=== PATIENT | male | born 1935 | race Caucasian/White ===

== ENCOUNTER → 2016-08-07 08:26 | Outpatient (CLI) | payer MEDICARE ==
[2015-05-27 13:00] VITALS: BMI 33.5
[~2016-08-07 08:26] MED LIST: ATROVENT 0.02%2.5 ML UPD; BAYER CHEWABLE81 MG PO; BENICAR HCT 40-1 TA1 PO; BUMEX 1 MG TAB1 MG PO; CARDURA4 MG PO; CATAPRES0.1 MG PO; COLACE100 MG PO; CORDARONE200 MG PO; DOXYCYCLINE HY100 M2 PO; FLORAJEN3 CAPS460 MG PO; GLUCOPHAGE500 MG PO; GLUCOTROL 5 MG T5 MG PO; HUMALOG 30100 UNITS/ SC; HYDRALAZINE HCL50 MG PO; HYDROCODON-ACE1 EAC7 PO; ISOSORBIDE MONO30 M1 PO; LASIX20 MG PO; LIPITOR20 MG PO; LISINOPRIL10 MG PO; NORVASC10 MG PO; NORVASC5 MG PO; PACERONE200 MG PO; PARAFON FORTE500 MG PO; PLAVIX75 MG PO; POTASSIUM20 MEQ/11 PO; RESTORIL15 MG PO; SYNTHROID75 MCG PO; SYNTHROID88 MCG PO; TRANDATE200 MG PO; ULTRAM50 MG PO; VITAMIN D250000 UNIT PO; ZANTAC300 MG PO; ZESTRIL40 MG PO; ZOCOR20 MG PO; ZOCOR40 MG PO
--- NOTE | 2016-08-21 08:46 | EC ---
PATIENT:LEXI ROB DATE OF SERVICE: 08/07/16 SEX: M MEDICAL RECORD: [id number] DATE OF : 37 LOCATION:[facility] AGE OF PATIENT: 81 ADMISSION DATE: 08/07/16 REFERRING PHYSICIAN: INTERPRETING PHYSICIAN: KENNY BENTLEY MD ECHOCARDIOGRAM REPORT ECHO CHARGES 4 ECHO COMPLETE CLINICAL DIAGNOSIS: AI/MURMUR/DAY ECHOCARDIOGRAPHIC MEASUREMENTS (adult normal given) AC root (d.<3.7cm) 2.8 LV Septum d (<1.2 cm> 1.5 Valve Excursion 1.3 LV Septum (systole) 2.2 Left Atria (s.<4.0cm> 5.4 LVPW d(<1.2cm) 1.3 RV (d.<2.3cm) 2.7 LVPW (sytole) 2.1 LV diastole(<5.6CM) 6.6 MV E-F(>70mm/sec) LV systole 3.5 LVOT Diameter 1.8 MV exc.(>10mm) Est.ejection fraction (50-75%) Pericardial Effusion N DOPPLER: LVIT A 110 E 91.0 LA RVSP 39.3 LVOT 107 AOP1/2T Asc. Ao 266 RVOT 90.0 RA PA 110 AV Gradient Peak 28.2 AV Mean 16.4 AV Area 0.9 MV Gradient Peak 5.6 MV Mean 1.7 MV Area COMMENTS: Health Promotion Educator: Shanna SILVAOE Multi Mission Helicopter Aircrewman:1 Dr. Bentley TAPE# PACS DATE OF SERVICE: 08/07/2016 Echocardiogram FINDINGS: 1. Left ventricle chamber size is mildly dilated. Left ventricular systolic function is normal. Overall ejection fraction estimated at 55%. 2. Left atrium is dilated at 5.4 cm. Right atrium and right ventricular chamber sizes are as well dilated. 3. Valvular structures: Aortic valve demonstrates [id number] calcific ECHOCARDIOGRAM REPORT [id number] ELXI ROB aortic stenosis. Valve area calculates to 0.9 cm-squared, has a gradient of 28 mm across the valve. The remaining valvular structures have normal structure and motion. 4. Doppler interrogation elsewise only reveals trace mitral regurgitation, mild tricuspid regurgitation. No other valvular insufficiency or stenosis and pulmonary systolic pressure is normal estimated at 39 mmHg. 5. No evidence of pericardial effusion or left ventricular thrombus. TRANSINT:[id number] Voice Confirmation ID: [id number] DOCUMENT ID: [id number] KENNY BENTLEY MD at 0846 CC: [id number] DICTATION DATE: 08/07/16 1041 INJECTION MACHINE OPERATOR: 08/07/16 1857 DEP CLI 08/07/16 [place] [id number] [place] [id number]
== END | disposition home or self-care (01) ==
LOC: D.ECHO 08:26
DX: I35.1 Nonrheumatic aortic (valve) insufficiency (principal); R06.00 Dyspnea, unspecified; R01.1 Cardiac murmur, unspecified

== ENCOUNTER → 2016-09-01 11:56 | Outpatient (CLI) | payer MEDICARE ==
[2015-05-27 13:00] VITALS: BMI 33.5
== END | disposition home or self-care (01) ==
LOC: D.RAD 11:56
DX: R07.81 Pleurodynia (principal); M54.6 Pain in thoracic spine

== ENCOUNTER 2016-09-04 22:37 | Inpatient (IN) | payer MEDICARE ==
[~2016-09-04] VITALS: Ht 170.2 cm; Wt 83.6 kg
[~2016-09-04 22:37] MED LIST changes: -ATROVENT 0.02%2.5 ML UPD; -CATAPRES0.1 MG PO; -CORDARONE200 MG PO; -DOXYCYCLINE HY100 M2 PO; -FLORAJEN3 CAPS460 MG PO; -GLUCOPHAGE500 MG PO; -HUMALOG 30100 UNITS/ SC; -HYDRALAZINE HCL50 MG PO; -HYDROCODON-ACE1 EAC7 PO; -ISOSORBIDE MONO30 M1 PO; -LIPITOR20 MG PO; -LISINOPRIL10 MG PO; -NORVASC10 MG PO; -PARAFON FORTE500 MG PO; -RESTORIL15 MG PO; -SYNTHROID88 MCG PO; -ULTRAM50 MG PO; -VITAMIN D250000 UNIT PO; -ZOCOR20 MG PO
[2016-09-05 02:25] LABS: APPEARANCE CLEAR (CLEAR); COLOR YELLOW (YELLOW); LEUKOCYTE ESTERASE NEGATIVE (NEGATIVE); NITRITE NEGATIVE (NEGATIVE); PROTEIN 2+ mg/dL (NEGATIVE); SPECIFIC GRAVITY 1.025 (1.005-1.020)
[2016-09-05 02:26] LABS: BILIRUBIN NEGATIVE (NEGATIVE); GLUCOSE NEGATIVE (NEGATIVE); KETONE NEGATIVE (NEGATIVE); UROBILINOGEN NORMAL (NORMAL)
[2016-09-05 02:58] LABS: BASOPHILS 0.5 % (0.0-2.0); EOSINOPHILS 4.2 % (0-7); HEMATOCRIT 44.4 % (42.0-54.0); HEMOGLOBIN 14.7 g/dL (13.5-17.5); IMMATURE GRANULOCYTES 0.3 % (0-5); LYMPHOCYTES 22.1 % (15-50); MCH 30.4 pg (26.0-34.0); MCHC 33.1 g/dL (31.0-37.0); MCV 91.9 fL (80.0-100.0); MONOCYTES 10.9 % (2-11); PLATELET COUNT 328 10x3/uL (130-400); RBC 4.83 10x6/uL (4.20-6.10); RDW 14.1 % (11.5-14.5); WBC 14.6 10x3/uL (4.8-10.8)
[2016-09-05 03:17] LABS: ALBUMIN 3.9 g/dL (3.4-5.0); ANION GAP 16.7 mmol/L (8-16); BILIRUBIN - TOTAL 0.37 mg/dL (0.2-1.3); CALCIUM 9.6 mg/dL (8.5-10.1); CARBON DIOXIDE 27.5 mmol/L (21.0-32.0); CREATININE - SERUM 2.8 mg/dL (0.6-1.3); POTASSIUM - SERUM 4.2 mmol/L (3.5-5.1); PROTEIN - SERUM 8.3 g/dL (6.4-8.2)
[2016-09-05] MEDS ORDERED: PARAFON FORTE500 MG PO (05:16)
[2016-09-05] MEDS ORDERED: ZOCOR20 MG PO (05:17)
[2016-09-05] MEDS ORDERED: ULTRAM50 MG PO (05:17)
[2016-09-05] MEDS ORDERED: SYNTHROID88 MCG PO (05:17)
[2016-09-05] MEDS ORDERED: CORDARONE200 MG PO (05:18)
[2016-09-05] MEDS ORDERED: VITAMIN D250000 UNIT PO (05:18)
[2016-09-05] MEDS ORDERED: NORVASC10 MG PO (05:18)
--- NOTE | 2016-09-05 05:35 | NUR ---
PT ARRIVES TO FLOOR FROM THE ER ACCOMPANIED BY ER NURSE VIA WC TO ROOM 2111. MEDICATIONS RECONCILED AT THE BEDSIDE. ADMISSION ASSESSMENT AND HISTORY COMPLETED. UNIT ROUTINES AND PROTOCOLS DISCUSSED WITH PT, PT VERBALIZED UNDERSTANDING. WILL CONT TO MONITOR.
[2016-09-05 05:42] VITALS: BP 204/68; BMI 27.1
[2016-09-05 06:29] VITALS: BP 206/68
[2016-09-05] MEDS ORDERED: HYDROCODON-ACE1 EAC7 PO (07:21)
--- NOTE | 2016-09-05 07:25 | NUR ---
PT SITTING UP IN BED WITH AT BEDSIDE. CO PAIN 10/10 IN STOMACH AREA. STOMACH DISTENDED AND FIRM. NO PAIN MEDS ORDERED AT THIS TIME. PAGED NADINE FOR ORDER.
--- NOTE | 2016-09-05 08:00 | NUR ---
PT BP ELEVATED. STARTING BP MEDS NOW. WILL SEE IF BP TRENDS DOWN AND WILL TALK WITH DR ANDRE WHEN HE ROUNDS.
[2016-09-05 08:32] VITALS: BP 202/70
--- NOTE | 2016-09-05 08:33 | NUR ---
PT IS ORDERED TO HAVE A CT OF ABDOMEN. MADE PT NPO UNTIL CT...PT SAYS HE HAS ALREADY HAD CT SCAN DONE LAST NIGHT. STILL SHOWS ACTIVE IN COMPUTER. CALLED CT X5 TIMES WITH NO ANSWER. LETTING PT EAT.
--- NOTE | 2016-09-05 08:37 | NUR ---
PAGED DR ANDRE. NO CALL BACK FROM NADINE VELASCO
--- NOTE | 2016-09-05 08:40 | NUR ---
DR ANDRE CALLED BACK. GAVE OK TO RESTART NORCO. 1-2 TABS [id number]. DONE
--- NOTE | 2016-09-05 11:21 | NUR ---
PT SITTING UP IN BED AT BEDSIDE DENIES NEEDS WILL CONT TO MONITOR.
[2016-09-05 12:03] VITALS: Ht 170.2 cm; Wt 83.6 kg
[2016-09-05 12:43] VITALS: BP 144/57
--- NOTE | 2016-09-05 13:06 | NUR ---
ORDER FOR URINE SPECIMEN. GIVEN PT CLEAN CATCH CUP AND INSTRUCTED HIM ON HOW TO RECEIVE A STERILE SPECIMEN. PT TO NOTIFY STAFF WHEN HE IS FINISHED COLLECTING SPECIMEN.
--- NOTE | 2016-09-05 16:11 | NUR ---
PT ON TELE RUNNING SB 50 BPM.
[2016-09-05 16:18] VITALS: BP 149/61
[2016-09-05 16:52] LABS: BILIRUBIN - TOTAL 0.33 mg/dL (0.2-1.3)
[2016-09-05 17:00] LABS: CREATININE - URINE 148.1 mg/dL (30-125); PROTEIN - URINE 189.5 mg/dL (0.0-11.9)
--- NOTE | 2016-09-05 18:33 | NUR ---
PT SITTING UP IN BED FAMILY AT BEDSIDE DENIES NEEDS
--- NOTE | 2016-09-05 19:03 | NUR ---
SITTING UP IN BED, AAOX3, SKIN WARM AND DRY, RESP UNLABORED, IV PATENT TO LEFT AC, DENIES NEEDS AT THIS TIME, AT BEDSIDE, NO DISTRESS NOTED
[2016-09-05 20:15] VITALS: BP 185/68
[2016-09-06 00:34] VITALS: BP 150/62
--- NOTE | 2016-09-06 00:55 | NUR ---
SOUND PERSON AT BEDSIDE FOR VS, NEEDS ADDRESSED. CALL LIGHT IN REACH. WILL CONT TO MONITOR.
[2016-09-06 04:26] VITALS: BP 180/72
[2016-09-06 05:17] LABS: BASOPHILS 0.6 % (0.0-2.0); EOSINOPHILS 6.8 % (0-7); HEMATOCRIT 37.2 % (42.0-54.0); HEMOGLOBIN 12.1 g/dL (13.5-17.5); IMMATURE GRANULOCYTES 0.2 % (0-5); LYMPHOCYTES 23.1 % (15-50); MCHC 32.5 g/dL (31.0-37.0); MCV 92.3 fL (80.0-100.0); MEAN PLATELET VOLUME 11.6 fL (7.4-10.4); MONOCYTES 11.2 % (2-11); NEUTROPHILS 58.1 % (40-80); PLATELET COUNT 289 10x3/uL (130-400); RBC 4.03 10x6/uL (4.20-6.10); RDW 14.1 % (11.5-14.5)
[2016-09-06 05:19] LABS: WBC 9.9 10x3/uL (4.8-10.8)
[2016-09-06 05:34] LABS: ANION GAP 14.3 mmol/L (8-16); BILIRUBIN - TOTAL 0.4 mg/dL (0.2-1.3); CALCIUM 8.7 mg/dL (8.5-10.1); CARBON DIOXIDE 25.7 mmol/L (21.0-32.0); CREATININE - SERUM 2.1 mg/dL (0.6-1.3); PROTEIN - SERUM 6.5 g/dL (6.4-8.2)
--- NOTE | 2016-09-06 06:19 | NUR ---
RESTING QUIETLY IN BED, NO DISTRESS NOTED
--- NOTE | 2016-09-06 07:04 | NUR ---
PT SITTING UP IN BED SLEEPING NO S/S DISTRESS AT BEDSIDE WILL CONT TO MONITOR.
--- NOTE | 2016-09-06 07:30 | NUR ---
CALLED TO PT ROOM PT HEAVING AND THROWING UP IN TRASH CAN. NO MEDICATION FOR NAUSEA ON EMAR. PAGED DR ANDRE.
--- NOTE | 2016-09-06 07:50 | NUR ---
DR ANDRE CALLED BACK. SAID TO START ZOFRAN DRIP 1MG/HR. ORDERED. CALLED PHARM SPOKE TO [facility] AND ASKED THEM TO BRING UP FOR PT.
[2016-09-06 08:33] VITALS: BP 210/82
--- NOTE | 2016-09-06 09:02 | NUR ---
CARY RENAL TANK OPERATOR HERE TO SEE PT. LET HER KNOW WHAT WAS GOING ON WITH PT THROWING UP ETC. PT REFUSED HIS AM MEDICATIONS BECAUSE OF NAUSEA. PT BP IS HIGH. PT SAYS HE WILL TAKE THEM WHEN HE "FEELS BETTER"
--- NOTE | 2016-09-06 11:11 | NUR ---
PT FSBS 158. WANTS TO HOLD OFF ON INSULIN FOR NOW
[2016-09-06 12:26] VITALS: BP 171/64
[2016-09-06 15:46] VITALS: BP 148/52
--- NOTE | 2016-09-06 17:58 | NUR ---
PT SITTING UP IN BED WITH AT BEDSIDE DENIES NEEDS
--- NOTE | 2016-09-06 19:33 | NUR ---
ASSESSMENT COMPELTE, A&O, RESPERATIONS EVEN ON RA. IV TO LEFT AC WITH NS INFUSING AT 100 CC/HR AND ZOFRAN DRIP AT 4.7 CC/HR. REMINDED PT AND PTS THAT PT IS TOO HAVE NOTHING TO EAT OR DRINK AFTER MN DUE TO TESTS/PROCEDURES ORDERED IN THE MORNING, PT AND STATE UNDERSTANDING. RECLINER CHAIR TAKEN TO ROOM FOR , NO OTHER NEEDS REQUESTED AT THIS TIME. CL IN REACH, WILL CONT TO MONITOR.
[2016-09-06 20:00] VITALS: BP 148/53
--- NOTE | 2016-09-06 23:03 | NUR ---
AUTOMOBILE SERVICE STATION ATTENDANT AT BEDSIDE FOR VS. NEEDS ADDRESSED, CALL LIGHT IN REACH. WILL CONT TO MONITOR.
--- NOTE | 2016-09-07 00:52 | NUR ---
IN BED RESTING WITH EYES CLOSED, RESPERATIONS EVEN, NO S/S DISTRESS NOTED. AT BED SIDE.
[2016-09-07 03:49] VITALS: BP 112/79
[2016-09-07 05:29] LABS: BASOPHILS 0.5 % (0.0-2.0); EOSINOPHILS 7.5 % (0-7); HEMOGLOBIN 11.4 g/dL (13.5-17.5); IMMATURE GRANULOCYTES 0.2 % (0-5); MCH 29.7 pg (26.0-34.0); MCHC 31.7 g/dL (31.0-37.0); MCV 93.8 fL (80.0-100.0); MEAN PLATELET VOLUME 11.8 fL (7.4-10.4); MONOCYTES 11.3 % (2-11); NEUTROPHILS 53.5 % (40-80); PLATELET COUNT 276 10x3/uL (130-400); RBC 3.84 10x6/uL (4.20-6.10); RDW 14.4 % (11.5-14.5); WBC 10.9 10x3/uL (4.8-10.8)
[2016-09-07 05:45] LABS: ALBUMIN 2.9 g/dL (3.4-5.0); ANION GAP 13.1 mmol/L (8-16); BILIRUBIN - TOTAL 0.38 mg/dL (0.2-1.3); CALCIUM 8.6 mg/dL (8.5-10.1); POTASSIUM - SERUM 4.1 mmol/L (3.5-5.1); PROTEIN - SERUM 6.4 g/dL (6.4-8.2)
--- NOTE | 2016-09-07 08:00 | NUR ---
PATIENT'S LEFT ARM IV SL FOR WC TRANSPORT TO MEDICAL IMAGING. HE IS AMBULATING AROUND HIS ROOM INDEPENDENTLY. REMAINS AT THE BEDSIDE.
--- NOTE | 2016-09-07 10:20 | NUR ---
PATIENT GIVEN A DIABETIC BREAKFAST TRAY SINCE HIS SCANS ARE COMPLETE.
[2016-09-07 11:37] VITALS: BP 138/56
--- NOTE | 2016-09-07 14:00 | NUR ---
PATIENT IS PREPARING TO NAP. HE HAS THE CPAP ON. AT THE BEDSIDE. THEY DENY NEEDS. DISCUSSED THE FSBS RECEIVED AT 1130. HE RECEIVED HIS BREAKFAST VERY LATE AND THE EXPECTATION IS THAT HIS SUGARS ARE REGISTERING HIGH FOR THIS REASON. WILL HOLD THE INSULIN AT THIS TIME, MONITOR HIM CLOSELY AND MEDICATE PRIOR TO SUPPER IF THE SUGAR REMAINS HIGH. HE HAS EATEN A LUNCH. HIS CALL LIGHT IS WITHIN HIS REACH. DISCUSSED S/S TO REPORT.
--- NOTE | 2016-09-07 15:14 | NUR ---
PATIENT RESTING QUIETLY IN HIS ROOM, AT THE BEDSIDE. THEY HAVE BEEN NAPPING AND ARE AWAKENING. HE HAS WORN THE CPAP TO SLEEP. THEY DENY NEEDS. REQUEST CALL FROM THE KITCHEN TO CONFIRM MEAL SELECTION FOR SUPPER. MESSAGE TO THE KITCHEN.
[2016-09-07 15:59] VITALS: BP 146/56
--- NOTE | 2016-09-07 19:19 | NUR ---
RECEIVED SITTING ON EDGE OF BED WITH FAMILY AT BEDSIDE. CALM AND IN GOOD SPIRITS. STATES ONLY PAIN IS VERY LITTLE IN LOWER BACK FROM SITTING UP TOO LONG. IV STARTED IN LEFT FOREARM X2 ATTEMPTS. REINFORCE TO ASK FOR ASSIST WHEN NEEDS. CALL LIGHT IN REACH.
[2016-09-07 20:00] VITALS: BP 115/64
--- NOTE | 2016-09-07 22:46 | NUR ---
RESTING IN BED WITH EYES CLOSED. NO SIGNS OF DISTRESS. CALL LIGHT IN REACH
[2016-09-08] VITALS: BP 198/66
--- NOTE | 2016-09-08 02:52 | NUR ---
RECHECKED B/P. APRESOLINE 10MG IV GIVEN. PATIENT STATES PAIN OF 2 IN LOWER ABDOMINAL REGION. REINFORCE NPO STATUS.
[2016-09-08 04:00] VITALS: BP 172/73
[2016-09-08 06:00] LABS: BASOPHILS 0.4 % (0.0-2.0); EOSINOPHILS 7.1 % (0-7); HEMATOCRIT 37.6 % (42.0-54.0); IMMATURE GRANULOCYTES 0.2 % (0-5); LYMPHOCYTES 24.7 % (15-50); MCH 29.6 pg (26.0-34.0); MCHC 31.9 g/dL (31.0-37.0); MCV 92.6 fL (80.0-100.0); NEUTROPHILS 57.6 % (40-80); PLATELET COUNT 289 10x3/uL (130-400); RBC 4.06 10x6/uL (4.20-6.10); RDW 14.2 % (11.5-14.5); WBC 12.7 10x3/uL (4.8-10.8)
[2016-09-08 06:20] LABS: ALBUMIN 3.2 g/dL (3.4-5.0); ANION GAP 13.1 mmol/L (8-16); BILIRUBIN - TOTAL 0.4 mg/dL (0.2-1.3); CALCIUM 8.6 mg/dL (8.5-10.1); CARBON DIOXIDE 23.4 mmol/L (21.0-32.0); CREATININE - SERUM 1.8 mg/dL (0.6-1.3); PHOSPHOROUS 2.2 mg/dL (2.5-4.9); POTASSIUM - SERUM 3.5 mmol/L (3.5-5.1); PROTEIN - SERUM 6.8 g/dL (6.4-8.2)
--- NOTE | 2016-09-08 07:00 | NUR ---
RECEIVED REPORT. ASSUMED CARE OF PATIENT. PATIENT RESTING ON LEFT LATERAL SIDE WITH HOME CPAP MACHINE ON. RESP EVEN AND UNLABORED. PATIENT EASILY AROUSED. PATIENTS SPOUSE AT BEDSIDE. CALL LIGHT WITHIN REACH. NO DISTRESS.
[2016-09-08 08:08] VITALS: BP 163/49
--- NOTE | 2016-09-08 11:00 | NUR ---
FSBS 133. NO INSULIN COVERAGE REQUIRED PER SLIDING SCALE.
--- NOTE | 2016-09-08 11:30 | NUR ---
NEW MATTRESS PROVIDED TO PATIENT AT THIS TIME. PATIENT COMPLAIN THAT HE DIPS DOWN INTO A HOLE AT THE BUTTOCK AREA AND THAT THE PAST 2 NIGHTS HE HAS NOT GOTTEN ANY SLEEP. PATIENT THANKED THIS GEOLOGY PROFESSOR FOR PROVIDING THE NEW MATTRESS AND ALSO THANKED KATHY FROM [employer] FOR BRINGING IT UP.
[2016-09-08 11:41] VITALS: BP 90/57
--- NOTE | 2016-09-08 14:25 | NUR ---
22 GAUGE IV D/C'D FROM LEFT FOREARM. CATHETER TIP INTACT. NO BLEEDING FROM SITE. 2X2 GAUZE APPLIED AND SECURED WITH TAPE. TOLERATED IV D/C WELL. TELEMETRY REMOVED AT THIS TIME WELL.
--- NOTE | 2016-09-08 14:45 | NUR ---
DISCHARGE INSTRUCTIONS PROVIDED TO PATIENT AND HIS AT THIS TIME. VERBALIZED UNDERSTANDING OF ALL INSTRUCTIONS PROVIDED. PATIENT LEFT UNIT VIA WHEELCHAIR AT THIS TIME WITH ALL PERSONAL BELONGINGS. PATIENT DISCHARGED TO HOME VIA PRIVATE CAR WITH HIS SPOUSE. PATIENT IN NO DISTRESS UPON LEAVING THE UNIT.
--- NOTE | 2016-09-08 14:55 | NUR ---
Patient Name: LEXI ROB Admission Status: ER Accout number: [id number] Admission Date: 09-06-2016 : 1935 Admission Diagnosis: Attending: MARIANGEL Current LOS: 2 Anticipated DC Date: 09-08-2016 Planned Disposition: Home Primary Insurance: [employer] CHOICE PPO MCR ADVANT Discharge Planning Comments: * Is the patient Alert and Oriented? Yes 0 * How many steps to enter\exit or inside your home? 7 0 * PCP DR. LOCK 0 * Pharmacy [facility] 0 * Preadmission Environment Home with Family 0 * ADLs Independent 0 * Equipment CPAP Oxygen 0 * Other Equipment HOME AND PORTABLE OXYGEN [facility] - MEDICAL EQUIPMENT PROVIDER 0 * List name and contact numbers for known caregivers / representatives who currently or will assist patient after discharge: ULISSES ROB, SPOUSE, 0 * Community resources currently utilized None 0 * Please name any agencies selected above. NONE 0 * Additional services required to return to the preadmission environment? No 0 * Can the patient safely return to the preadmission environment? Yes 0 * Has this patient been hospitalized within the prior 30 days at any hospital? No 0 CM MET WITH PT AND SPOUSE IN ROOM TO DISCUSS DISCHARGE PLANNING AND NEEDS. PT REPORTS LIVING AT HOME INDEPENDENTLY WITH SPOUSE. PT HAS CPAP AND OXYGEN FROM [facility]. PT HAS OUTSIDE SERVICES ASSISTING IN THE HOME. CM DISCUSSED AVAILABILITY OF HOME HEALTH, REHAB SERVICES AND MEDICAL EQUIPMENT. PT/SPOUSE DENIED DISCHARGE NEEDS, PT'S SPOUSE IS HERE TO PICK PT UP FOR DISCHARGE HOME. IMPORTANT MESSAGE FROM [employer] PROVIDED AND EXPLAINED. Forestry Instructor: Jonnie Gonzalez
--- NOTE | 2016-09-09 07:54 | CN ---
PATIENT NAME:LEXI ROB MEDICAL RECORD: [id number] : 37 LOCATION:D.M2 D.2111 ADMIT DATE: 09/06/16 ACCOUNT: [id number] CONSULTING PHYSICIAN: SARA YI MD REFERRING PHYSICIAN: RENEE ANDRE MD DATE OF CONSULTATION: 09/08/2016 Surgical Consultation. SURGEON: Sara Yi MD CHIEF COMPLAINT: Abdominal pain. HISTORY OF PRESENT ILLNESS: This is an 81-year-old male admitted to the hospital 3 days ago. The patient came in with complaints of left flank pain. The patient was being treated as an outpatient for suspected kidney stone. He has a past medical history of nephrolithiasis. The patient states that he is still having left flank pain that radiates to the left lower quadrant. He was admitted with a white count and diagnosis of acute kidney injury. Currently, the patient complains of again of some left-sided and left flank pain. He had nausea yesterday morning, which resolved. He has been tolerating a regular diet for the last several days with no episodes of vomiting. He is having regular bowel function. He had a CT of the abdomen and pelvis on admission, which showed no acute findings in the abdomen. He does have some gallstones noted on the CT scan as well as nonobstructing renal stones. Gallbladder ultrasound revealed multiple stones in the gallbladder, no thinning of the gallbladder wall, no pericholecystic fluid, no biliary dilatation. HIDA scan revealed an ejection fraction of 42%. Today, the patient truly has no complaints. He does have a remote history complaining of some epigastric pain, but none at current. PAST MEDICAL HISTORY: GERD, diabetes, hypothyroidism, hypertension, coronary artery disease, peripheral arterial disease, COPD, obstructive sleep apnea requiring CPAP. He has got dyspnea on exertion. PAST SURGICAL HISTORY: Right knee replacement. He has stents in bilateral lower extremity arteries. He has had a left shoulder scope. He has had a coronary arteriogram with stents and angioplasty. ALLERGIES: No known drug allergies. MEDICATIONS: His medications at home include amiodarone, aspirin, glipizide, ranitidine, metformin, clopidogrel, docusate, lisinopril, Ultram, Zocor, Synthroid, Potrero and vitamin D2. SOCIAL HISTORY: He has never been a smoker. He has a history of alcohol use. FAMILY HISTORY: No history of cardiovascular disease or cancer. REVIEW OF SYSTEMS: A 12-point review of systems was obtained. Pertinent positive and negative as per the HPI. PHYSICAL EXAMINATION: VITAL SIGNS: Temperature 98.1, heart rate 55, respiratory rate 18, blood pressure 163/49. GENERAL: This is a well-developed and well-nourished elderly male in mild CONSULT REPORT [id number] LEXI ROB distress. PSYCHIATRIC: He is oriented times 3. EYES: Extraocular muscles are intact. EAR, NOSE, AND THROAT: He has poor dentition. CARDIOVASCULAR: Normal sinus rhythm. LUNGS: Clear to auscultation bilaterally, although decreased breath sounds. ABDOMEN: Soft, nondistended and nontender. No guarding. No rebound. No palpable hernia defects. SKIN: Warm, dry with normal turgor. EXTREMITIES: He is neurovascularly intact. No peripheral edema. NEUROLOGIC: GCS of 15 with no focal deficits. LABORATORY DATA: Reveals leukocytosis 12,000, hemoglobin 12, hematocrit 37, platelet count 289. Chemistry: Sodium 140, potassium 3.5, chloride 107, CO2 of 23, BUN 18, creatinine 1.8. LFTs are within normal limits. Amylase and lipase were also within normal limits. Images were personally reviewed with the HIDA scan and right upper quadrant ultrasound as well as the CT of the abdomen and pelvis, agree with the radiologist's findings. IMPRESSION: This is an 81-year-old male with left flank pain, severe coronary artery disease, and peripheral vascular disease. PLAN: After discussion with the patient and spouse, imaging finding and clinical history not consistent with acute cholecystitis. The patient may have a remote history of biliary colic. The patient has opted for outpatient workup and continuation of his gallbladder disease. Recommend to follow up with Dr. Yi after discharge in 2-4 weeks to discuss elective laparoscopic cholecystectomy. Continue diet as tolerated. Bowel regimen. We will follow throughout this hospitalization. TRANSINT:[id number] Voice Confirmation ID: [id number] DOCUMENT ID: [id number] SARA YI MD at 0754 CC: [id number] DICTATION DATE: 09/08/16 0912 GAME WARDEN: 09/08/16 1036 DIS IN 09/08/16 [place] [id number] [place] [address]
[2016-09-09] MEDS ORDERED: GLUCOPHAGE500 MG PO (09:16)
--- NOTE | 2016-09-09 10:48 | DS ---
PATIENT:LEXI ROB :37 MEDICAL RECORD: [id number] DISCHARGE SUMMARY ADMISSION DATE: 09/06/16 DISCHARGE DATE: 09/08/16 DATE OF ADMISSION: 09/06/2016 DATE OF DISCHARGE: 09/08/2016 ADMITTING DIAGNOSES: Left lower quadrant abdominal pain, nephrolithiasis, diabetes, hypothyroidism, coronary artery disease with previous stents with myocardial infarction, peripheral arterial disease, chronic obstructive pulmonary disease, with home O2, obstructive sleep apnea with Bi-PAP and CPAP. DISCHARGE DIAGNOSES: Left lower quadrant abdominal pain, nephrolithiasis, diabetes, hypothyroidism, coronary artery disease with previous stents with myocardial infarction, peripheral arterial disease, chronic obstructive pulmonary disease, with home O2, obstructive sleep apnea with Bi-PAP and CPAP, pain resolved, cholelithiasis. CONSULTING PHYSICIANS: Dr. Schultz and Dr. Esparza. This is a pleasant 81-year-old white male who presents to the Emergency Room complaining of left lower quadrant abdominal pain with some nausea. Pain is pretty severe. He has nephrolithiasis in his left kidney, but there are no signs of obstruction, no stones in the ureter. He had some worsening of his renal function. He is a diabetic. He was seen in consultation by urology and nephrology. He is not felt to have a stone. Incidental finding were enlarge gallbladder with stones, obvious pain in his left lower and none of this seems like his gallbladder. He is seen in consultation by Dr. Esparza who does not feel a need his gallbladder out at this time. He had spontaneous resolution of pain and has been pain free for over 24 hours. On the morning of discharge, he is feeling well, tolerating a regular diet. We will be discharged to home with instructions to follow up in [address] Alonzo. He does have some renal insufficiency and he needs to be holding his metformin at this time, keep him on his other diabetes meds for now, will need to follow up BNP. His creatinine at discharge was 1.8. TRANSINT:[id number] Voice Confirmation ID: [id number] DOCUMENT ID: [id number] LINO SNELL DO at 1048 CC: [id number] DICTATION DATE: 09/08/16 1242 ENGINEER TECHNICAL STAFF: 09/09/16 0232 DIS IN 09/08/16 [facility] [address] [facility] [place] [address]
== END 2016-09-08 14:35 | disposition home or self-care (01) | DRG 684 ==
LOC: D.ER 22:37 → D.M2 09-05 04:33 → OBSVTIME 09-05 04:33 → D.M2 09-06 15:40
PROVIDERS: Emergency Medicine; Internal Medicine Nephrology; ADMIT Family Medicine Adult Medicine
DX: N17.9 Acute kidney failure, unspecified (principal); E11.22 Type 2 diabetes mellitus with diabetic chronic kidney disease; I12.9 Hypertensive chronic kidney disease with stage 1 through stage 4 chronic kidney disease, or unspecified chronic kidney disease; N18.9 Chronic kidney disease, unspecified; N20.0 Calculus of kidney; K80.20 Calculus of gallbladder without cholecystitis without obstruction; K21.9 Gastro-esophageal reflux disease without esophagitis; E03.9 Hypothyroidism, unspecified; I25.10 Atherosclerotic heart disease of native coronary artery without angina pectoris; I73.9 Peripheral vascular disease, unspecified; J44.9 Chronic obstructive pulmonary disease, unspecified; G47.33 Obstructive sleep apnea (adult) (pediatric); D72.829 Elevated white blood cell count, unspecified; R00.1 Bradycardia, unspecified

== ENCOUNTER 2016-10-07 12:11 | Inpatient (IN) | payer MEDICARE ==
[~2016-10-07 12:11] MED LIST changes: +CORDARONE200 MG PO; +GLUCOPHAGE500 MG PO; +HYDROCODON-ACE1 EAC7 PO; +NORVASC10 MG PO; +PARAFON FORTE500 MG PO; +SYNTHROID88 MCG PO; +ULTRAM50 MG PO; +VITAMIN D250000 UNIT PO; +ZOCOR20 MG PO
[2016-10-07 12:54] LABS: BASOPHILS 0.4 % (0.0-2.0); EOSINOPHILS 5.3 % (0-7); HEMATOCRIT 39.2 % (42.0-54.0); HEMOGLOBIN 13.4 g/dL (13.5-17.5); IMMATURE GRANULOCYTES 0.5 % (0-5); MCH 30.6 pg (26.0-34.0); MCHC 34.2 g/dL (31.0-37.0); MCV 89.5 fL (80.0-100.0); MEAN PLATELET VOLUME 11.3 fL (7.4-10.4); MONOCYTES 9.8 % (2-11); PLATELET COUNT 321 10x3/uL (130-400); RBC 4.38 10x6/uL (4.20-6.10); WBC 14.5 10x3/uL (4.8-10.8)
[2016-10-07 13:20] LABS: ALBUMIN 3.5 g/dL (3.4-5.0); ANION GAP 13.5 mmol/L (8-16); BILIRUBIN - TOTAL 0.39 mg/dL (0.2-1.3); CALCIUM 9.2 mg/dL (8.5-10.1); CARBON DIOXIDE 25.9 mmol/L (21.0-32.0); CREATININE - SERUM 1.8 mg/dL (0.6-1.3); POTASSIUM - SERUM 3.4 mmol/L (3.5-5.1); PROTEIN - SERUM 7.8 g/dL (6.4-8.2)
[2016-10-07 13:21] LABS: APTT 29.9 SECONDS (22.8-39.4); INR 0.95 (0.85-1.17); PROTIME 12.5 SECONDS (11.6-15.0)
[2016-10-07] MEDS ORDERED: BUMEX 1 MG TAB1 MG PO (14:50)
[2016-10-07] MEDS ORDERED: NORVASC10 MG PO (14:55)
[2016-10-08 06:04] LABS: INR 0.97 (0.85-1.17); PROTIME 12.7 SECONDS (11.6-15.0)
[2016-10-08 06:06] LABS: HEMATOCRIT 33.8 % (42.0-54.0); HEMOGLOBIN 11.5 g/dL (13.5-17.5); MCH 30.6 pg (26.0-34.0); MCV 89.9 fL (80.0-100.0); MEAN PLATELET VOLUME 11.5 fL (7.4-10.4); PLATELET COUNT 295 10x3/uL (130-400); RBC 3.76 10x6/uL (4.20-6.10); RDW 15.5 % (11.5-14.5); WBC 20.6 10x3/uL (4.8-10.8)
[2016-10-08 06:26] LABS: ALBUMIN 3.7 g/dL (3.4-5.0); ANION GAP 16.6 mmol/L (8-16); BILIRUBIN - TOTAL 0.54 mg/dL (0.2-1.3); CALCIUM 8.8 mg/dL (8.5-10.1); CARBON DIOXIDE 23.6 mmol/L (21.0-32.0); MAGNESIUM - SERUM 1.8 mg/dL (1.8-2.4); PHOSPHOROUS 3.8 mg/dL (2.5-4.9); POTASSIUM - SERUM 3.2 mmol/L (3.5-5.1); PROTEIN - SERUM 7.3 g/dL (6.4-8.2)
[2016-10-08 07:00] LABS: ANISOCYTOSIS 1+; BASOPHILS 1 % (0.0-2.0); LYMPHOCYTES 12 % (15-50); MONOCYTES 2 % (2-11); NEUTROPHILS 85 % (40-80); PLATELET ESTIMATE NORMAL; ROULEAUX OCC
[2016-10-08 13:02] LABS: CKMB 4.1 U/L (0.0-3.6); CREATINE KINASE 208 UL (21-232); POTASSIUM - SERUM 3.3 mmol/L (3.5-5.1)
[2016-10-08 13:17] LABS: TROPONIN-I 0.078 ng/mL (0.000-0.060)
[2016-10-09 06:30] LABS: BASOPHILS 0.1 % (0.0-2.0); EOSINOPHILS 0.1 % (0-7); HEMATOCRIT 33.3 % (42.0-54.0); HEMOGLOBIN 11.2 g/dL (13.5-17.5); IMMATURE GRANULOCYTES 0.2 % (0-5); MCH 30.1 pg (26.0-34.0); MCHC 33.6 g/dL (31.0-37.0); MCV 89.5 fL (80.0-100.0); MEAN PLATELET VOLUME 11.4 fL (7.4-10.4); MONOCYTES 9.4 % (2-11); NEUTROPHILS 80.2 % (40-80); PLATELET COUNT 303 10x3/uL (130-400); RBC 3.72 10x6/uL (4.20-6.10); RDW 16.1 % (11.5-14.5); WBC 16.5 10x3/uL (4.8-10.8)
[2016-10-09 06:55] LABS: ALBUMIN 3.1 g/dL (3.4-5.0); ANION GAP 17.6 mmol/L (8-16); BILIRUBIN - TOTAL 0.81 mg/dL (0.2-1.3); CALCIUM 8.7 mg/dL (8.5-10.1); CARBON DIOXIDE 20.7 mmol/L (21.0-32.0); MAGNESIUM - SERUM 1.7 mg/dL (1.8-2.4); PHOSPHOROUS 3.3 mg/dL (2.5-4.9); POTASSIUM - SERUM 3.3 mmol/L (3.5-5.1); PROTEIN - SERUM 6.6 g/dL (6.4-8.2)
[2016-10-10 02:26] LABS: APPEARANCE HAZY (CLEAR); BILIRUBIN NEGATIVE (NEGATIVE); COLOR YELLOW (YELLOW); GLUCOSE 50 mg/dL (NEGATIVE); KETONE NEGATIVE (NEGATIVE); LEUKOCYTE ESTERASE NEGATIVE (NEGATIVE); NITRITE NEGATIVE (NEGATIVE); PROTEIN 1+ mg/dL (NEGATIVE); UROBILINOGEN NORMAL (NORMAL); WHITE CELLS - URINE NSEEN /hpf (0-5)
[2016-10-10 06:26] LABS: BASOPHILS 0.1 % (0.0-2.0); EOSINOPHILS 0.2 % (0-7); HEMATOCRIT 31.8 % (42.0-54.0); HEMOGLOBIN 10.5 g/dL (13.5-17.5); IMMATURE GRANULOCYTES 0.3 % (0-5); LYMPHOCYTES 7.8 % (15-50); MCH 30.4 pg (26.0-34.0); MEAN PLATELET VOLUME 11.6 fL (7.4-10.4); MONOCYTES 12.9 % (2-11); NEUTROPHILS 78.7 % (40-80); PLATELET COUNT 282 10x3/uL (130-400); RBC 3.45 10x6/uL (4.20-6.10); RDW 16.5 % (11.5-14.5); WBC 15.3 10x3/uL (4.8-10.8)
[2016-10-10 06:27] LABS: MCV 92.2 fL (80.0-100.0)
[2016-10-10 06:51] LABS: ANION GAP 13.5 mmol/L (8-16); CALCIUM 8.5 mg/dL (8.5-10.1); CARBON DIOXIDE 21.8 mmol/L (21.0-32.0); CREATININE - SERUM 2.2 mg/dL (0.6-1.3); MAGNESIUM - SERUM 1.8 mg/dL (1.8-2.4); POTASSIUM - SERUM 3.3 mmol/L (3.5-5.1); THYROID STIMULATING HORMONE 3.08 uIU/mL (0.36-3.74); URIC ACID 8.6 mg/dL (2.6-7.2)
[2016-10-10 06:52] LABS: PHOSPHOROUS 4.4 mg/dL (2.5-4.9)
[2016-10-10 14:53] LABS: POTASSIUM - SERUM 3.8 mmol/L (3.5-5.1)
[2016-10-11 05:25] LABS: BASOPHILS 0.2 % (0.0-2.0); EOSINOPHILS 0.7 % (0-7); HEMATOCRIT 32.4 % (42.0-54.0); HEMOGLOBIN 10.5 g/dL (13.5-17.5); IMMATURE GRANULOCYTES 0.4 % (0-5); LYMPHOCYTES 9.2 % (15-50); MCH 30.2 pg (26.0-34.0); MCHC 32.4 g/dL (31.0-37.0); MCV 93.1 fL (80.0-100.0); MONOCYTES 17.8 % (2-11); NEUTROPHILS 71.7 % (40-80); PLATELET COUNT 313 10x3/uL (130-400); RBC 3.48 10x6/uL (4.20-6.10); RDW 16.8 % (11.5-14.5); WBC 13.2 10x3/uL (4.8-10.8)
[2016-10-11 06:03] LABS: ANION GAP 15.8 mmol/L (8-16); CALCIUM 8.6 mg/dL (8.5-10.1); CARBON DIOXIDE 19.7 mmol/L (21.0-32.0); CREATININE - SERUM 2.4 mg/dL (0.6-1.3); PHOSPHOROUS 4.2 mg/dL (2.5-4.9); POTASSIUM - SERUM 3.5 mmol/L (3.5-5.1)
[2016-10-12 04:52] LABS: BASOPHILS 0.1 % (0.0-2.0); EOSINOPHILS 0.4 % (0-7); HEMATOCRIT 33.3 % (42.0-54.0); HEMOGLOBIN 10.9 g/dL (13.5-17.5); IMMATURE GRANULOCYTES 0.4 % (0-5); LYMPHOCYTES 11.9 % (15-50); MCH 30.7 pg (26.0-34.0); MCHC 32.7 g/dL (31.0-37.0); MCV 93.8 fL (80.0-100.0); MEAN PLATELET VOLUME 12.2 fL (7.4-10.4); MONOCYTES 15.5 % (2-11); NEUTROPHILS 71.7 % (40-80); PLATELET COUNT 315 10x3/uL (130-400); RBC 3.55 10x6/uL (4.20-6.10); RDW 17.1 % (11.5-14.5); WBC 15.6 10x3/uL (4.8-10.8)
[2016-10-12 05:20] LABS: ANION GAP 16.1 mmol/L (8-16); CALCIUM 8.6 mg/dL (8.5-10.1); CARBON DIOXIDE 21.5 mmol/L (21.0-32.0); CREATININE - SERUM 2.5 mg/dL (0.6-1.3); MAGNESIUM - SERUM 2.2 mg/dL (1.8-2.4); PHOSPHOROUS 3.8 mg/dL (2.5-4.9); POTASSIUM - SERUM 3.6 mmol/L (3.5-5.1)
[2016-10-13 05:53] LABS: ANION GAP 15.2 mmol/L (8-16); CALCIUM 8.5 mg/dL (8.5-10.1); CREATININE - SERUM 2.4 mg/dL (0.6-1.3); PHOSPHOROUS 3.1 mg/dL (2.5-4.9); POTASSIUM - SERUM 3.2 mmol/L (3.5-5.1)
[2016-10-13 06:34] LABS: BASOPHILS 0.2 % (0.0-2.0); EOSINOPHILS 0.8 % (0-7); HEMATOCRIT 32.4 % (42.0-54.0); HEMOGLOBIN 10.5 g/dL (13.5-17.5); IMMATURE GRANULOCYTES 0.6 % (0-5); LYMPHOCYTES 13.2 % (15-50); MCH 30.3 pg (26.0-34.0); MCHC 32.4 g/dL (31.0-37.0); MCV 93.4 fL (80.0-100.0); MEAN PLATELET VOLUME 12.3 fL (7.4-10.4); MONOCYTES 12.3 % (2-11); NEUTROPHILS 72.9 % (40-80); PLATELET COUNT 326 10x3/uL (130-400); RBC 3.47 10x6/uL (4.20-6.10); RDW 17.5 % (11.5-14.5)
[2016-10-13 17:11] LABS: CALCIUM 8.5 mg/dL (8.5-10.1); CARBON DIOXIDE 24.3 mmol/L (21.0-32.0); CREATININE - SERUM 2.4 mg/dL (0.6-1.3)
[2016-10-13 17:18] LABS: ANION GAP 13.7 mmol/L (8-16)
[2016-10-14 05:28] LABS: BASOPHILS 0.2 % (0.0-2.0); EOSINOPHILS 3.5 % (0-7); HEMATOCRIT 32.2 % (42.0-54.0); HEMOGLOBIN 10.1 g/dL (13.5-17.5); IMMATURE GRANULOCYTES 1.1 % (0-5); LYMPHOCYTES 12.6 % (15-50); MCH 30.1 pg (26.0-34.0); MCHC 31.4 g/dL (31.0-37.0); MEAN PLATELET VOLUME 12.2 fL (7.4-10.4); MONOCYTES 11.1 % (2-11); NEUTROPHILS 71.5 % (40-80); PLATELET COUNT 325 10x3/uL (130-400); RBC 3.35 10x6/uL (4.20-6.10); RDW 17.8 % (11.5-14.5); WBC 16.7 10x3/uL (4.8-10.8)
[2016-10-14 05:40] LABS: CALCIUM 8.7 mg/dL (8.5-10.1); CARBON DIOXIDE 21.7 mmol/L (21.0-32.0); CREATININE - SERUM 2.4 mg/dL (0.6-1.3); POTASSIUM - SERUM 3.7 mmol/L (3.5-5.1)
[2016-10-14 05:44] LABS: MCV 96.1 fL (80.0-100.0)
[2016-10-14 05:52] LABS: PHOSPHOROUS 4.1 mg/dL (2.5-4.9)
[2016-10-15 05:56] LABS: ANION GAP 12.6 mmol/L (8-16); CALCIUM 8.3 mg/dL (8.5-10.1); CREATININE - SERUM 2.1 mg/dL (0.6-1.3); MAGNESIUM - SERUM 2.3 mg/dL (1.8-2.4); PHOSPHOROUS 3.4 mg/dL (2.5-4.9); POTASSIUM - SERUM 3.6 mmol/L (3.5-5.1)
[2016-10-15 06:12] LABS: BASOPHILS 0.2 % (0.0-2.0); EOSINOPHILS 4.6 % (0-7); HEMATOCRIT 29.4 % (42.0-54.0); IMMATURE GRANULOCYTES 1.7 % (0-5); LYMPHOCYTES 16.7 % (15-50); MCH 29.4 pg (26.0-34.0); MCHC 30.6 g/dL (31.0-37.0); MCV 96.1 fL (80.0-100.0); MEAN PLATELET VOLUME 12.2 fL (7.4-10.4); MONOCYTES 8.8 % (2-11); PLATELET COUNT 287 10x3/uL (130-400); RBC 3.06 10x6/uL (4.20-6.10); RDW 17.1 % (11.5-14.5); WBC 15.6 10x3/uL (4.8-10.8)
[2016-10-16 06:14] LABS: BASOPHILS 0.2 % (0.0-2.0); EOSINOPHILS 3.1 % (0-7); HEMATOCRIT 34.6 % (42.0-54.0); IMMATURE GRANULOCYTES 1.7 % (0-5); LYMPHOCYTES 14.7 % (15-50); MCH 30.5 pg (26.0-34.0); MCHC 32.7 g/dL (31.0-37.0); MEAN PLATELET VOLUME 12.5 fL (7.4-10.4); MONOCYTES 10.1 % (2-11); NEUTROPHILS 70.2 % (40-80); PLATELET COUNT 258 10x3/uL (130-400); RDW 16.1 % (11.5-14.5); WBC 15.3 10x3/uL (4.8-10.8)
[2016-10-16 06:32] LABS: CALCIUM 8.3 mg/dL (8.5-10.1); CREATININE - SERUM 1.8 mg/dL (0.6-1.3); MAGNESIUM - SERUM 2.1 mg/dL (1.8-2.4)
[2016-10-16 06:44] LABS: HEMOGLOBIN 11.3 g/dL (13.5-17.5); MCV 93.5 fL (80.0-100.0)
[2016-10-17 03:22] LABS: BASOPHILS 0.2 % (0-2); EOSINOPHILS 2.7 % (0-7); HEMATOCRIT 31.2 % (42.0-54.0); HEMOGLOBIN 10.2 g/dL (13.5-17.5); IMMATURE GRANULOCYTES 1.5 % (0-5); LYMPHOCYTES 13.6 % (15-50); MCH 30.1 pg (26.0-34.0); MCHC 32.7 g/dL (31.0-37.0); MEAN PLATELET VOLUME 11.9 fL (7.4-10.4); MONOCYTES 10.5 % (2-11); NEUTROPHILS 71.5 % (40-80); PLATELET COUNT 297 10x3/uL (130-400); RBC 3.39 10x6/uL (4.20-6.10); RDW 15.6 % (11.5-14.5); WBC 18.8 10x3/uL (4.8-10.8)
[2016-10-17 03:33] LABS: ANION GAP 14.5 mmol/L (8-16); CALCIUM 8.3 mg/dL (8.5-10.1); CARBON DIOXIDE 23.8 mmol/L (21.0-32.0); CREATININE - SERUM 1.5 mg/dL (0.6-1.3); MAGNESIUM - SERUM 2.1 mg/dL (1.8-2.4); PHOSPHOROUS 2.8 mg/dL (2.5-4.9); POTASSIUM - SERUM 3.3 mmol/L (3.5-5.1)
[2016-10-18 05:52] LABS: BASOPHILS 0.2 % (0-2); EOSINOPHILS 2.5 % (0-7); HEMATOCRIT 31.1 % (42.0-54.0); HEMOGLOBIN 10.2 g/dL (13.5-17.5); IMMATURE GRANULOCYTES 1.3 % (0-5); LYMPHOCYTES 11.2 % (15-50); MCH 30.2 pg (26.0-34.0); MCHC 32.8 g/dL (31.0-37.0); MEAN PLATELET VOLUME 12.1 fL (7.4-10.4); MONOCYTES 8.1 % (2-11); NEUTROPHILS 76.7 % (40-80); PLATELET COUNT 311 10x3/uL (130-400); RBC 3.38 10x6/uL (4.20-6.10); RDW 15.6 % (11.5-14.5); WBC 19.9 10x3/uL (4.8-10.8)
[2016-10-18 06:18] LABS: ANION GAP 13.8 mmol/L (8-16); CALCIUM 8.2 mg/dL (8.5-10.1); CARBON DIOXIDE 24.5 mmol/L (21.0-32.0); CREATININE - SERUM 1.5 mg/dL (0.6-1.3); MAGNESIUM - SERUM 2.1 mg/dL (1.8-2.4); PHOSPHOROUS 3.4 mg/dL (2.5-4.9); POTASSIUM - SERUM 3.3 mmol/L (3.5-5.1)
[2016-10-19 06:13] LABS: BASOPHILS 0.1 % (0-2); EOSINOPHILS 2.9 % (0-7); HEMATOCRIT 26.3 % (42.0-54.0); HEMOGLOBIN 8.6 g/dL (13.5-17.5); IMMATURE GRANULOCYTES 0.9 % (0-5); LYMPHOCYTES 12.8 % (15-50); MCH 30.7 pg (26.0-34.0); MCHC 32.7 g/dL (31.0-37.0); MCV 93.9 fL (80.0-100.0); MEAN PLATELET VOLUME 12.5 fL (7.4-10.4); MONOCYTES 7.9 % (2-11); NEUTROPHILS 75.4 % (40-80); PLATELET COUNT 289 10x3/uL (130-400); RDW 15.8 % (11.5-14.5); WBC 18.5 10x3/uL (4.8-10.8)
[2016-10-19 06:44] LABS: ANION GAP 12.4 mmol/L (8-16); CALCIUM 8.1 mg/dL (8.5-10.1); CARBON DIOXIDE 24.3 mmol/L (21.0-32.0); CREATININE - SERUM 1.8 mg/dL (0.6-1.3); MAGNESIUM - SERUM 2.1 mg/dL (1.8-2.4); PHOSPHOROUS 3.9 mg/dL (2.5-4.9); POTASSIUM - SERUM 3.7 mmol/L (3.5-5.1)
[2016-10-20 06:30] LABS: CALCIUM 8.3 mg/dL (8.5-10.1); CARBON DIOXIDE 24.2 mmol/L (21.0-32.0); CREATININE - SERUM 1.7 mg/dL (0.6-1.3); MAGNESIUM - SERUM 2.2 mg/dL (1.8-2.4); POTASSIUM - SERUM 3.2 mmol/L (3.5-5.1)
[2016-10-20 06:49] LABS: BASOPHILS 0.1 % (0-2); EOSINOPHILS 2.5 % (0-7); HEMATOCRIT 26.4 % (42.0-54.0); HEMOGLOBIN 8.6 g/dL (13.5-17.5); IMMATURE GRANULOCYTES 0.8 % (0-5); LYMPHOCYTES 12.8 % (15-50); MCH 30.4 pg (26.0-34.0); MCHC 32.6 g/dL (31.0-37.0); MCV 93.3 fL (80.0-100.0); MEAN PLATELET VOLUME 12.7 fL (7.4-10.4); MONOCYTES 7.8 % (2-11); PLATELET COUNT 301 10x3/uL (130-400); RBC 2.83 10x6/uL (4.20-6.10); RDW 15.4 % (11.5-14.5); WBC 16.1 10x3/uL (4.8-10.8)
[2016-10-20 07:08] LABS: % SATURATION 25 % (15-55); IRON 29 ug/dl (35-150); TOTAL IRON BIND CAPACITY 113 ug/dl (260-445); UNSAT IRON BIND CAPACITY 84 ug/dl (150-375)
[2016-10-20] MEDS ORDERED: CORDARONE200 MG PO (12:00)
[2016-10-20] MEDS ORDERED: ISOSORBIDE MONO30 M1 PO (12:01)
[2016-10-20] MEDS ORDERED: HYDRALAZINE HCL50 MG PO (12:01)
[2016-10-20] MEDS ORDERED: LISINOPRIL10 MG PO (12:01)
[2016-10-20] MEDS ORDERED: CATAPRES0.1 MG PO ×2 (12:01)
[2016-10-20] MEDS ORDERED: LIPITOR20 MG PO (12:01)
[2016-10-20] MEDS ORDERED: FLORAJEN3 CAPS460 MG PO (12:02)
[2016-10-20] MEDS ORDERED: HUMALOG 30100 UNITS/ SC (12:02)
[2016-10-20] MEDS ORDERED: ATROVENT 0.02%2.5 ML UPD (12:03)
[2016-10-21 09:17] LABS: FOLATE (FOLIC ACID) - SERUM 6.8 ng/mL (>3.0)
[2016-10-21] MEDS ORDERED: RESTORIL15 MG PO (14:53)
[2016-10-21] MEDS ORDERED: DOXYCYCLINE HY100 M2 PO (14:53)
== END 2016-10-21 15:32 | DRG 64 ==
LOC: D.ER 12:11 → D.ICU 13:40 → D.CVICU 10-08 20:11 → D.MS 10-15 15:50
PROVIDERS: Family Medicine; Internal Medicine Nephrology; Internal Medicine Pulmonary Disease; Neurological Surgery; ADMIT Neurological Surgery
DX: I61.9 Nontraumatic intracerebral hemorrhage, unspecified (principal); G93.41 Metabolic encephalopathy; J18.9 Pneumonia, unspecified organism; J96.01 Acute respiratory failure with hypoxia; N17.9 Acute kidney failure, unspecified; E87.0 Hyperosmolality and hypernatremia; I60.9 Nontraumatic subarachnoid hemorrhage, unspecified; I12.9 Hypertensive chronic kidney disease with stage 1 through stage 4 chronic kidney disease, or unspecified chronic kidney disease; N18.9 Chronic kidney disease, unspecified; E11.9 Type 2 diabetes mellitus without complications; Z79.84 Long term (current) use of oral hypoglycemic drugs; I25.2 Old myocardial infarction; I25.10 Atherosclerotic heart disease of native coronary artery without angina pectoris; Z95.5 Presence of coronary angioplasty implant and graft; J44.9 Chronic obstructive pulmonary disease, unspecified; G47.33 Obstructive sleep apnea (adult) (pediatric); E87.6 Hypokalemia; E78.5 Hyperlipidemia, unspecified; I48.91 Unspecified atrial fibrillation; R00.1 Bradycardia, unspecified

== ENCOUNTER 2016-10-21 14:39 | Inpatient (IN) | payer MEDICARE ==
[~2016-10-21] VITALS: Ht 170.2 cm; Wt 89.8 kg
[~2016-10-21 14:39] MED LIST changes: +ATROVENT 0.02%2.5 ML UPD; +CATAPRES0.1 MG PO; +FLORAJEN3 CAPS460 MG PO; +HUMALOG 30100 UNITS/ SC; +HYDRALAZINE HCL50 MG PO; +ISOSORBIDE MONO30 M1 PO; +LIPITOR20 MG PO; +LISINOPRIL10 MG PO
[2016-10-21] MEDS ORDERED: DOXYCYCLINE HY100 M2 PO (14:53)
[2016-10-21] MEDS ORDERED: RESTORIL15 MG PO (14:53)
--- NOTE | 2016-10-21 15:05 | NUR ---
RECIEVED PT TO ROOM 1116.PLACED ON O2. AT BEDSIDE.ORIENTED TO SURROUNDINGS.
--- NOTE | 2016-10-21 16:13 | NUR ---
PATIENT ADMITTED TO UNIT FROM ACUTE FLOOR. SPOUSE AT BEDSIDE. PATIENT PCP IS DR. LOCK , HAS C-PAP AND O2 FROM [facility] AT HOME. AT TIME OF DISCHRGE WILL NEED APPOINTMENTS WITH DR. LOCK, , , AND DR. LESLIE. PATIENT IS OF [place]. WILL CONTINUE TO FOLLOW WITH PATIENT UNTIL DISCHARGED.
[2016-10-21 16:57] VITALS: BP 156/99; BMI 31.1
--- NOTE | 2016-10-21 20:15 | NUR ---
PT. IN BED WITH HOB UP FOR COMFORT AND IS LYING ON HIS RIGHT SIDE WITH PILLOWS SUPPORTING HIS BACK ON THE LEFT, LUE UP ON PILLOW TO HELP WITH EDEMA AND LLE UP ON PILLOW ALSO TO BRIDGE HEEL. LT. FOOT HEEL PROTECTOR OFF AND IT WAS REPLACED. PT. POSITIONED TO COMFORT ON HIS BACK AT THIS TIME PER HIS REQUEST AND CALL LIGHT IS WITHIN REACH. STAYS WITH PT.
[2016-10-21 20:16] VITALS: BP 155/68
[2016-10-21 22:21] VITALS: BP 112/93
--- NOTE | 2016-10-21 23:06 | NUR ---
PT. IN BED WITH HOB UP FOR COMFORT AND LYING ON HIS LEFT SIDE. EYES CLOSED AND RESP. DEEP AND EVEN. CALL LIGHT WITHIN REACH. SPOUSE ASLEEP IN RECLINER NEXT TO PT.
--- NOTE | 2016-10-22 02:08 | NUR ---
PT. IN BED WITH HOB UP FOR COMFORT AND IS LYING ON HIS LEFT SIDE. EYES ARE CLOSED AND RESP. DEEP AND EVEN. AT BEDSIDE ASLEEP IN RECLINER. CALL LIGHT WITHIN REACH.
--- NOTE | 2016-10-22 02:46 | NUR ---
PT. HAD A LARGE LOOSE LIGHT BROWN INCONTINENT BM AND HAD VISIBLY HAD HIS RIGHT HAND IN IT. CALLED FOR ASSISTANCE. PT. CLEANED, CLEAN LINENS REPLACED, AND PT. POSITIONED TO COMFORT ON HIS LEFT SIDE AGAIN AT HIS REQUEST. HAD CLEANED PT'S RIGHT HAND OF THE STOOL. PT. C/O HEADACHE AND WANTING SOMETHING FOR RELIEF. ADMIN. PERCOCET FOR THE HEADACHE. CALL LIGHT WITHIN REACH AND REMAINS AT BEDSIDE.
[2016-10-22 14:26] VITALS: Ht 170.2 cm; Wt 89.8 kg
[2016-10-22 18:54] VITALS: BP 183/69
--- NOTE | 2016-10-22 19:25 | NUR ---
PT RECEIVED IN BED WITH EYES OPEN WITH AT BEDSIDE.WITH COMPLAINS OF BACK DISCOMFORT REPOSITIONED FOR COMFORT. NO OTHER NEEDS MADE KNOWN AT THIS TIME. CALL LIGHT IN REACH. WILL CONTINUE TO OBSERVE.
--- NOTE | 2016-10-23 01:01 | NUR ---
PT IN BED WITH EYES CLOSED AND CHEST RISING. IN CHAIR IN ROOM. BLADDER TRAINING CONTINUED. INCONTINENT OF BOWEL WITH PERICARE PROVIDED AND CLEAN BRIEF AND LINENS. PEREZ CARE PROVIDED. LEFT ARM ELEVATED AND SUPPORTED. NO OTHER CONCERNS MADE KNOWN AT THIS TIME. CALL LIGHT IN REACH. WILL CONTINUE TO OBSERVE.
--- NOTE | 2016-10-23 06:58 | NUR ---
RESTING QUIETLY IN BED CALL LIGHT IN REACH
[2016-10-23 07:19] LABS: BASOPHILS 0.3 % (0-2); EOSINOPHILS 2.2 % (0-7); HEMATOCRIT 30.1 % (42.0-54.0); HEMOGLOBIN 9.8 g/dL (13.5-17.5); IMMATURE GRANULOCYTES 0.5 % (0-5); LYMPHOCYTES 16.1 % (15-50); MCH 30.3 pg (26.0-34.0); MCHC 32.6 g/dL (31.0-37.0); MCV 93.2 fL (80.0-100.0); MEAN PLATELET VOLUME 12.1 fL (7.4-10.4); MONOCYTES 9.4 % (2-11); NEUTROPHILS 71.5 % (40-80); RBC 3.23 10x6/uL (4.20-6.10); WBC 16.9 10x3/uL (4.8-10.8)
[2016-10-23 07:22] LABS: PLATELET COUNT 378 10x3/uL (130-400)
[2016-10-23 07:32] LABS: ANION GAP 11.7 mmol/L (8-16); CALCIUM 8.5 mg/dL (8.5-10.1); CARBON DIOXIDE 29.8 mmol/L (21.0-32.0); CREATININE - SERUM 1.6 mg/dL (0.6-1.3); MAGNESIUM - SERUM 1.9 mg/dL (1.8-2.4); POTASSIUM - SERUM 3.5 mmol/L (3.5-5.1)
--- NOTE | 2016-10-23 08:59 | RHP ---
PATIENT: LEXI ROB MEDICAL RECORD: [id number] ACCOUNT: [id number] [facility] 37 ADMISSION DATE: 10/21/16 REHABILITATION HISTORY AND PHYSICAL EXAMINATION POST ADMISSION PHYSICIAN EXAMINATION DATE OF ADMISSION TO THE REHAB: 10/21/2016 ADMITTING DIAGNOSES: Cerebrovascular accident with left body involvement, also a large posterior right cerebral hemorrhage involving the frontal, parietal and occipital lobes, and also ventriculomegaly with intraventricular hemorrhage bilaterally with left-sided hemiparesis and also oropharyngeal symbolic dysfunction. HISTORY OF PRESENT ILLNESS: The patient is admitted to inpatient rehab for a 6 cm x 4.5 cm large posterior right cerebral hemorrhage involving the posterior frontal, parietal and occipital lobes, he has got ventriculomegaly with intraventricular hemorrhage bilaterally with left hemiparesis. He is an 81-year-old gentleman with history of hypertension, coronary artery disease status post stent, on Plavix; he has got peripheral arterial disease with post lower extremity stent, COPD, quit smoking 8 years ago. He smoked 1 pack per day for 60 years, got a history of CHF, hypertension, hyperlipidemia, diabetes, hypothyroidism, reflux, obstructive sleep apnea and he sleeps with a CPAP at home. He came to the ED after having a syncopal episode while shopping. He was admitted with headache and confusion, left-sided weakness and neglect and found to have a right posterior cerebral bleed into the posterior frontal, parietal and occipital hemorrhage that increased on subsequent CT scan done on October 09, measuring 6 cm x 4.5. He did not have any midline shift and herniation; however, he has increasing ventriculomegaly with intraventricular hemorrhage bilaterally. He lives with his and was independent with his ADLs and mobility prior to hospitalization. He is currently moderate to max assist for ADLs and mobility. The family and the patient would like to return home or get him back to his prior level of functioning if possible and inpatient rehab is really his only option to do that. COMORBIDITIES: In this patient include hypernatremia, hypoxic respiratory failure, COPD, leukocytosis, CHF, hypertension, hypothyroidism, gastroesophageal reflux disease, peripheral arterial disease, ex-smoker, diabetes, chronic kidney disease, anemia, poor nutrition, electrolyte abnormalities, bradycardia, deconditioning, because of his advanced age and obesity, coagulopathy and atrial fib. PAST MEDICAL HISTORY: Includes diabetes, thyroid problems, hypertension, COPD, CO in the past, coronary artery disease, peripheral vascular disease, chronic kidney disease, claudication and apnea. PAST SURGICAL HISTORY: Includes right knee replacement, stents in both legs, he has had shoulder surgery and angioplasty. ALLERGIES: No known drug allergies. CURRENT MEDICATIONS: He is currently on an electrolyte protocol at this time. He is on isosorbide 30 mg daily. He is on Floranex 460 mg daily, Synthroid 88 mcg daily, amlodipine 10 mg daily, amiodarone 100 mg daily. He is on Percocet 5/325 as needed for pain, Atrovent updrafts p.r.n. shortness of breath, Zestril HISTORY AND PHYSICAL [id number] LEXI ROB ULICES 20 mg b.i.d., Pepcid 40 mg at bedtime. He is on a low-resistant sliding scale insulin. He is on Apresoline 100 mg t.i.d., doxycycline 100 mg b.i.d. He is on Colace 100 mg at bedtime, clonidine 0.1 mg b.i.d. with meals. He also takes it p.r.n. elevated blood pressure and Lipitor 40 mg b.i.d. HABITS: No current alcohol or tobacco use. FAMILY HISTORY: Noncontributory. SOCIAL HISTORY: The patient once again wants to return home with his and get back to some type of functional level there. REVIEW OF SYSTEMS: GENERAL: Does complain of weakness, mainly on the left side. HEENT: Denies cold, cough, or congestion. CARDIOVASCULAR: Denies chest pain. PHYSICAL EXAMINATION: VITAL SIGNS: Stable, afebrile. GENERAL: A well-developed gentleman, in no acute distress upon exam. HEENT: Normocephalic and atraumatic. Mucosa moist. NECK: Supple. No lymphadenopathy. LUNGS: Clear at this time. HEART: Has a regular rate and rhythm. ABDOMEN: Benign. EXTREMITIES: No clubbing, cyanosis, or edema. NEUROLOGIC: Does have weakness, especially on the left side. ASSESSMENT: This is an 81-year-old gentleman who is admitted to rehab with a working diagnosis of intracerebral hemorrhage and also cerebrovascular accident. The patient has potential to make improvement. We instituted the following multidisciplinary therapies including to, but not limited to physical, occupational, respiratory, speech, nutritional services, prosthetics and orthotics. Given his complex condition and risk for more complications, rehabilitation services cannot be provided at a low level of care such as a [place] facility. PLAN: 1. Admit to [facility] rehab for intensive inpatient therapy to include the following disciplines: A. Physical therapy to improve gait, all transfer skills and bed mobility to a modified independent level. B. Occupational therapy to improve activities of daily living to a modified independent level. C. Case management to assist with discharge planning and placement options. D. Nutrition to assist with nutritional needs. E. Rehabilitation nursing to assist in monitoring the patient's underlying medical conditions and to assist with any type of bowel or bladder management. 2. The patient's current medications and medical care will be continued. 3. We will get him to work with speech therapy and also with PT and OT to hopefully get his mobility back to some point that he can return home. 4. We will discuss this patient during care team staff meeting this week. TRANSINT:[id number] Voice Confirmation ID: [id number] DOCUMENT ID: [id number] HISTORY AND PHYSICAL [id number] LEXI ROB SCOTT MD at 0859 CC: [id number] DICTATION DATE: 10/22/16 0810 NEGATIVE TURNER APPRENTICE: 10/22/16 1314 ADM IN [facility] [address] [place] [address]
--- NOTE | 2016-10-23 10:00 | NUR ---
PT IS RESTING IN BED WITH EYES OPEN. ASSITED TO REPOSITION IN BED WITH TOTAL ASSIST. NO OTHER NEEDS VOICED.
[2016-10-23 11:06] VITALS: BP 149/82
--- NOTE | 2016-10-23 14:10 | NUR ---
PT IS RESTING IN BED WITH EYES CLOSED. NO DISTRESS NOTED.
--- NOTE | 2016-10-23 17:28 | NUR ---
PT IS RESTING IN BED EATING SUPPER WITH ASSIST FROM HIS . NO DIFFICULTY NOTED.
[2016-10-23 18:52] VITALS: BP 118/45
--- NOTE | 2016-10-23 19:22 | NUR ---
PT LYING IN BED WITH HOB UP FOR COMFORT. RESTING QUIETLY. IN ROOM. NO COMPLAINTS AT THIS TIME. CATH BAG UNCLAMPED. BED IN LOWEST POSTION AND CALL LIGHT WITHIN REACH.
--- NOTE | 2016-10-23 21:59 | NUR ---
PEREZ CARE GIVEN.
--- NOTE | 2016-10-24 01:59 | NUR ---
PT IN BED WITH HOB COMFORT, EYES CLOSED, CHEST RISING AND FALLING. 02 @ 2L VIA N/C. IN ROOM. BED IN LOWEST POSITION AND CALL LIGHT WITHIN REACH.
--- NOTE | 2016-10-24 04:31 | NUR ---
PT IN BED, EYES OPEN, IN ROOM. 1425ML CATH BAG EMPTIED. BED IN LOWEST POSITION AND CALL LIGHT WITHIN REACH.
--- NOTE | 2016-10-24 05:42 | NUR ---
PT RESTING QUIETLY, HAD MULTIPLE LOOSE STOOLS DURING THE NIGHT, MAX ASSIST WTIH BED MOBILITY, FAMILY PRESENT, NO S/S O FACUTE DISTRESS.
[2016-10-24 07:00] VITALS: BP 185/67
--- NOTE | 2016-10-24 07:30 | NUR ---
RESTING QUIETLY IN BED LAYING ON BACK. FAMILY IN ROOM WITH PT. EYES CLOSED.
--- NOTE | 2016-10-24 10:17 | NUR ---
VERY RESTLESS IN BED. KEEPS PULLING ON ANYTHING HE CAN REACH. COOPERATIVE WITH SIMPLE REQUESTS TO ROLL BACK AND FORTH. INCONT OF BOWEL AND BLADDER.
--- NOTE | 2016-10-24 16:05 | NUR ---
STILL SLEEPING DEEPLY IN BED. IS SLIGHTLY DIFFICULT TO AROUSE AND HAS BEEN SINCE MUSCLE RELAXOR GIVEN THIS AM. FAMILY IN ROOM WITH PT AND REPORT HE HAS SLEPT LIKE THIS BEFORE. HE DOES NOT APPEAR TO BE IN ANY PAIN OR DISTRESS. REMAINS INCONT OF URINE AND BOWEL. LUE, LLE FLACCID.
--- NOTE | 2016-10-24 17:09 | NUR ---
WIDE AWAKE AND RESTLESS IN BED. FIDIGITING, ROLLING FROM SIDE TO SIDE, PULLING COVERS UP THEN PUSHING THEM OFF, PULLING BRIEF OFF THEN PLULLING IT UP. IN ROOM HELPING WITH PT. SHE DECLINED ANY SEDATION MEDS AT THIS TIME, SHE WANTS HIM TO EAT SUPPER.
--- NOTE | 2016-10-24 18:14 | NUR ---
SETTELING DOWN IN BED AND IS LESS RESTLESS. IN ROOM WITH PT STILL. INCONT OF BOWEL AND BLADDER AGAIN.
[2016-10-24 19:20] VITALS: BP 101/42
--- NOTE | 2016-10-24 20:00 | NUR ---
PT'S INCONTINENT OF URINE AND BOWEL. BRIEF AND LINEN CHANGED. PT COMPLAINING OF MINOR HEADACHE AND BACK PAIN. PT 'S HR WAS 50. HELD 2100 MED IMDUR. PT CONTINOUSLY HAVING LOOSE STOOLS. HELD 2100 MED. COLACE. TYLEOL GIVEN FOR BACK PAIN WITH 2100 MED.'S. PT'S IN ROOM. 02 @ 3L VIA N/C. PT ALERT BUT NOT ORIENTED. BED IN LOWEST POSITION AND CALL LIGHT WITHIN REACH.
--- NOTE | 2016-10-24 20:11 | NUR ---
ASSISTED WITH TOTAL BATH, APPLIED DRESSING TO LEFT ARM SORES, SKIN IS FRAGILE, APPEARS TO BE WHERE PT SCRATCHES. PT IS RESTLESS, ANSWERS QUESTION, SPOUSE IN ROOM, OXYGEN ON, INCONTINENT OF STOOL, PT ATTEMPTING TO USE TRAPEZE WITH BED MOBILITY.
--- NOTE | 2016-10-25 00:29 | NUR ---
PT C/O SUDDEN ONSET OF ARECHIGA, RATES THE PAIN AT A 10, OBTAINED VS 153/48, 65 18 WITH PULSE OX 98.
--- NOTE | 2016-10-25 01:54 | NUR ---
PT'S CALLED SON TO COME IN AND AFTER SON HAD TALKED WITH MOTHER. HE CAME TO THE NURSES STATION AND RELATED TO ME THAT, "NEUROLOGIST TOLD FAMILY THAT HE DID NOT THINK HE SHOULD HAVE ANY KIND OF ANXIETY TYPE OF MEDICATION DUE TO SOME CHANGES THAT WOULD POSSSIBLY HAPPEN TO PT'S MENTAL STATUS. BUT HE GOT PUT ON SOME TYPE OF ANXIETY MED. WEDNESDAY AND SINCE WEDNESDAY HE HAS HAD A DRASTIC CHANGE IN MENTAL STATUS."
--- NOTE | 2016-10-25 03:58 | NUR ---
PT IN BED WITH HOB UP, AWAKE AND RESTLESS, AND SON IN ROOM, BED IN LOWEST POSITION AND CALL LIGHT WITHIN REACH.
--- NOTE | 2016-10-25 04:05 | NUR ---
SON PRESENT IN ROOM WITH MOTHER. SON STATES THAT SINCE PT HAS ARRIVED ON REHAB UNIT, HE BELIEVES HIS FATHER HAS CHANGED OR DIGRESSED.
--- NOTE | 2016-10-25 06:41 | NUR ---
PT IN BED WITH HOB UP FOR COMFORT, EYES CLOSED, CHEST RISING AND FALLING. 02 @ 3L VIA N/C. SON AND IN ROOM. BED IN LOWEST POSTIION AND CALL LIGHT WITHIN REACH.
[2016-10-25 06:46] LABS: BASOPHILS 0.2 % (0-2); EOSINOPHILS 1.4 % (0-7); HEMOGLOBIN 11.7 g/dL (13.5-17.5); IMMATURE GRANULOCYTES 0.3 % (0-5); MCH 30.2 pg (26.0-34.0); MCHC 32.2 g/dL (31.0-37.0); MCV 93.8 fL (80.0-100.0); MEAN PLATELET VOLUME 11.8 fL (7.4-10.4); MONOCYTES 8.3 % (2-11); NEUTROPHILS 75.8 % (40-80); RBC 3.87 10x6/uL (4.20-6.10); RDW 15.3 % (11.5-14.5)
[2016-10-25 06:53] LABS: ANION GAP 7.5 mmol/L (8-16); CALCIUM 8.3 mg/dL (8.5-10.1); CARBON DIOXIDE 34.6 mmol/L (21.0-32.0); CREATININE - SERUM 1.6 mg/dL (0.6-1.3); POTASSIUM - SERUM 3.1 mmol/L (3.5-5.1)
[2016-10-25 07:00] VITALS: BP 158/61
[2016-10-25 07:01] LABS: HEMATOCRIT 36.3 % (42.0-54.0); PLATELET COUNT 276 10x3/uL (130-400); WBC 9.8 10x3/uL (4.8-10.8)
--- NOTE | 2016-10-25 07:30 | NUR ---
AWAKE AND RESTLESS THIS MORNING. IN ROOM WITH PT. SHE STATES SHE HAS BEEN UP MOST OF NIGHT WITH HIM WHEN HE WAS RESTLESS AND AGITATED. HE IS CONFUSED BUT COOPERATIVE. LEFT SIDE FLACCID. LUE HAS 4+ EDEMA NOTED. INCONT OF BOWEL AND BLADDER.
--- NOTE | 2016-10-25 09:56 | NUR ---
MUSCLE RELAXER AND PAIN MEDS GIVEN BUT PT STILL RESTLESS IN BED C/O PAIN TO RT LEG AND RT SHOULDER. IN ROOM RUBBING THEM MUSCLES.
--- NOTE | 2016-10-25 17:11 | NUR ---
RESTING QUIETLY IN BED AT PRESENT. FIRST TIME HE HAS BEEN STILL IN SEVERAL HOURS. F/C PLACED AND 835ML URINE RETURN NOTED.
--- NOTE | 2016-10-25 17:13 | NUR ---
PT HAD NOT VOIDED IN 6 HOURS AND TRIED TO VOID IN URINAL. WAS NOT ABLE TO VOID AT ALL. ORDER FOR F/C OBTAINED AND PLACED.
[2016-10-25 19:36] VITALS: BP 133/73
--- NOTE | 2016-10-25 20:17 | NUR ---
PT RECEIVED IN BED WITH EYES OPEN. AT BEDSIDE. PT UNABLE TO BE STILL. STATES THAT IT IS BETTER THAN EARLIER. PRN PAIN MEDICATION GIVEN AT END OF PRIOR SHIFT. REPOSITIONING ATTEMPT WITH NO CHANGE. CALL LIGHT IN REACH. WILL CONTINUE TO OBSERVE.
--- NOTE | 2016-10-25 23:08 | NUR ---
PT IN BED WITH EYES OPEN. UNABLE TO BE STILL FOR LONG PERIODS OF TIME. SCHEDULED MEDICATIONS GIVEN WITH PRN TYLENOL. PT CONTINUES TO NOT BE ABLE TO GET COMFORTABLE AND PULLING AT CATHETER. PULLING OFF STAY LOC. PRN PERCOCET GIVEN WHEN ABLE PER MAR. AT BEDSIDE. CALL LIGHT IN REACH. WILL CONTINUE TO OBSERVE.
--- NOTE | 2016-10-26 03:01 | NUR ---
PT IN BED RESTING WITH EYES CLOSED AND CHEST RISING AT THIS TIME. PT UNABLE TO LYE STILL UNTIL NOW. PT USING TRAPEZE TO CONTINUALLY TO PULL SELF OVER TO LEFT SIDE PT REPOSITIONED WITH PILLOWS UNDER LEFT SIDE BUT WOULD CONTINUE TO LYE ON LEFT SIDE. PT ON BACK WITH LEFT ARM ELEVATED AT THIS TIME. RECEIVED PRN OXYCODONE. WILL CONTINUE TO OBSERVE. CALL LIGHT IN REACH. AT BEDSIDE.
[2016-10-26 06:44] LABS: BASOPHILS 0.2 % (0-2); EOSINOPHILS 0.9 % (0-7); IMMATURE GRANULOCYTES 0.3 % (0-5); LYMPHOCYTES 12.5 % (15-50); MCH 30.6 pg (26.0-34.0); MCHC 32.2 g/dL (31.0-37.0); MCV 94.8 fL (80.0-100.0); MEAN PLATELET VOLUME 11.9 fL (7.4-10.4); MONOCYTES 8.3 % (2-11); NEUTROPHILS 77.8 % (40-80); RDW 15.1 % (11.5-14.5)
[2016-10-26 06:59] LABS: HEMATOCRIT 27.3 % (42.0-54.0); HEMOGLOBIN 8.8 g/dL (13.5-17.5); PLATELET COUNT 407 10x3/uL (130-400); RBC 2.88 10x6/uL (4.20-6.10)
[2016-10-26 07:15] LABS: CALCIUM 8.6 mg/dL (8.5-10.1); CARBON DIOXIDE 34.4 mmol/L (21.0-32.0); CREATININE - SERUM 1.6 mg/dL (0.6-1.3); MAGNESIUM - SERUM 2.1 mg/dL (1.8-2.4); PHOSPHOROUS 4.4 mg/dL (2.5-4.9); POTASSIUM - SERUM 3.4 mmol/L (3.5-5.1)
--- NOTE | 2016-10-26 08:30 | NUR ---
RESTLESS IN BED,DOES NOT LAY STILL. VISITED THIS AM AND ORDERED CT OF HEAD AND ATIVAN PO.ATIVAN 0.5MG PO GIVEN PER ORDERS.[id number] AT BEDSIDE AND ASSISTING WITH CARE.SLOW TO RESPOND VERBALLY .PT ON HOLD DUE TO CHANGE IN STATUS.
[2016-10-26 08:48] VITALS: BP 167/78
--- NOTE | 2016-10-26 09:15 | NUR ---
REMAINS RESTLESS.C/O HEADACHE.PERCOCET P0 GIVEN FOR PAIN PER ORDERS,SWALLOWS WITHOUT DIFFICULTY WITH APPLESAUCE.[id number] REMAINS AT BEDSIDE.
--- NOTE | 2016-10-26 09:45 | NUR ---
EYES CLOSED,RESP.REG AND EVEN.LAYING STILL IN BED.LEFT ARM ELEVATED ON 2 PILLOWS.[id number] REMAINS AT BEDSIDE.
--- NOTE | 2016-10-26 11:00 | NUR ---
BACK FROM RADIOLOGY.RADIOLOGIST WILL CALL RESULTS OF CT OF HEAD POST READING.
--- NOTE | 2016-10-26 16:37 | NUR ---
CLINICAL UPDATES FAXED TO SHAYY ROCA AT [facility] AUTH. # [id number] WITH CONFORMATION RECIEVED
[2016-10-26 18:43] VITALS: BP 123/74
--- NOTE | 2016-10-26 19:45 | NUR ---
PT RECEIVED IN BED WITH EYES CLOSED AND CHEST RISING. AT BEDSIDE. SECOND DOSE OF IV POTASSIUM GIVEN. NO CONCERNS MADE KNOWN. CALL LIGHT IN REACH. WILL CONTINUE TO OBSERVE.
--- NOTE | 2016-10-26 23:52 | NUR ---
PT IN BED WITH EYES CLOSED AND CHEST RISING. AT BEDSIDE. NO CONCERNS NOTED AT THIS TIME. MEDICATIONS HELD PER REQUEST. WILL CONTINUE TO OBSERVE. CALL LIGHT IN REACH.
--- NOTE | 2016-10-27 02:41 | NUR ---
PT IN BED RESTLESS. STATES HE HAS PAIN TO BACK. WITH PRN MEDICATION GIVEN. LAB RESULTS FOR POTASSIUM POST PROTOCOL READS 3.8. D5NS COMPLETE AND DISCONTECTED FROM PT. NO OTHER CONCERNS OR NEEDS MADE KNOWN AT THIS TIME. CALL LIGHT IN REACH. AT BEDSIDE.
[2016-10-27 09:10] VITALS: BP 193/87
[2016-10-27 09:44] LABS: POTASSIUM - SERUM 3.7 mmol/L (3.5-5.1)
--- NOTE | 2016-10-27 20:15 | NUR ---
PT RESTING IN BED, FAMILY AT BEDSIDE. ASSESSMENT COMPLETE. PT LEFT SIDE IS FLACCID. PT STATES PAIN 7/10 TO BACK OF HEAD. PT ATE 0% OF HIS SUPPER. FSBS 140. WCTM. BED LOW. CL IN REACH.
[2016-10-27 20:49] VITALS: BP 123/101
--- NOTE | 2016-10-27 21:10 | NUR ---
PT REQ AND REC'D PRN PAIN MEDICATION WITH HS MEDS AT THIS TIME. PT TOOK MEDS WHOLE IN APPLESAUCE WITH NO DIFFICULTY. PT DENIES FURTHER NEEDS. WCTM. BED LOW. CL IN REACH.
--- NOTE | 2016-10-27 23:49 | NUR ---
PT RESTING, EYES CLOSED. BED LOW. CL IN REACH.
--- NOTE | 2016-10-28 03:26 | NUR ---
STATES PT HAS BEEN RESTLESS THROUGHOUT THE NIGHT. DENEIS NEEDS. WCTM. BED LOW. CL IN REACH.
--- NOTE | 2016-10-28 06:09 | NUR ---
PT AM MEDS ADMINISTERED. PT TRIPLE LUMEN FLUSHED. PT FSBS OF 150 REQUIRES NO INSULIN. PT GIVEN REQUESTED PAIN MEDICATION ALSO AT THIS TIME. BED LOW. CL IN REACH.
--- NOTE | 2016-10-28 07:04 | NUR ---
RESTING QUIETLY IN BED CALL LIGHT IN REACH
[2016-10-28 07:44] LABS: CALCIUM 8.6 mg/dL (8.5-10.1); CREATININE - SERUM 1.4 mg/dL (0.6-1.3); MAGNESIUM - SERUM 1.9 mg/dL (1.8-2.4)
--- NOTE | 2016-10-28 09:41 | NUR ---
PT MEDICATED PER MAR AND DAUGHTERS REQUEST FOR COMPLAINT OF HEADACHE, AND RESTLESSNESS.
[2016-10-28 10:14] VITALS: BP 169/77
--- NOTE | 2016-10-28 11:43 | NUR ---
PT RESTING QUIETLY IN BED WITH EYES CLOSED. RESPS ARE EVEN AND UNLABORED. NO ACUTE DISTRESS NOTED.
--- NOTE | 2016-10-28 12:52 | NUR ---
CARE TEAM MEETING: FAMILY AT MEETING AND DUE TO CHANGE IN MEDICAL CONDITION PATIENT DISCHRGED FROM REHAB AND ADMITTED TO ACUTE FLOOR
--- NOTE | 2016-10-28 13:50 | NUR ---
PT RESTING IN BED WITH EYES CLOSED. NO ACUTE DISTRESS NOTED.
--- NOTE | 2016-10-28 16:07 | NUR ---
PT TRANSFERRED TO ROOM 2217.
== END 2016-10-28 16:08 | disposition home or self-care (01) | DRG 56 ==
LOC: D.REHAB 14:39
PROVIDERS: ADMIT Emergency Medicine
DX: I69.354 Hemiplegia and hemiparesis following cerebral infarction affecting left non-dominant side (principal); J96.01 Acute respiratory failure with hypoxia; I13.0 Hypertensive heart and chronic kidney disease with heart failure and stage 1 through stage 4 chronic kidney disease, or unspecified chronic kidney disease; E87.0 Hyperosmolality and hypernatremia; N17.9 Acute kidney failure, unspecified; E11.22 Type 2 diabetes mellitus with diabetic chronic kidney disease; N18.9 Chronic kidney disease, unspecified; D64.9 Anemia, unspecified; J44.9 Chronic obstructive pulmonary disease, unspecified; Z66 Do not resuscitate; K21.9 Gastro-esophageal reflux disease without esophagitis; E87.8 Other disorders of electrolyte and fluid balance, not elsewhere classified; R00.1 Bradycardia, unspecified; Z87.891 Personal history of nicotine dependence; E03.9 Hypothyroidism, unspecified; I48.91 Unspecified atrial fibrillation; D72.829 Elevated white blood cell count, unspecified; R13.11 Dysphagia, oral phase

== ENCOUNTER 2016-10-28 16:21 | Inpatient (IN) | payer MEDICARE ==
[~2016-10-28] VITALS: Ht 170.2 cm; Wt 76.0 kg
--- NOTE | 2016-10-28 16:15 | NUR ---
RECEIVED TO ROOM 2217 AT THIS TIME. LEFT SUBCLAVIAN DRESSING WITH DATE OF 10/26/16. PEREZ CATHETER CHANGED ON 10/25/16. AT BEDSIDE. WILL CONTINUE WITH PLAN OF CARE.
[~2016-10-28 16:21] MED LIST changes: +DOXYCYCLINE HY100 M2 PO; +RESTORIL15 MG PO
--- NOTE | 2016-10-28 16:30 | NUR ---
DRESSING TO LEFT SUBCLAVIAN CHANGED IN STERILE FASHION BY NIGEL NICHOLE.
[2016-10-28 16:54] VITALS: BP 119/93
[2016-10-28 18:25] VITALS: BP 119/93; BMI 30.9
--- NOTE | 2016-10-28 20:00 | NUR ---
ASSESSMENT PER FLOWSHEET LEFT SUBCL. IV SALINE LOCKED. SR UP X3 CALL LIGHT WITHIN REACH AT BEDSIDE LEFT ARM/LEG FLACCID. O2 ON 2L/M ER NC. PEREZ TO BS DRAINAGE WITH YELLOW UA.PT RESTLESS AT TIMES.
--- NOTE | 2016-10-28 21:00 | NUR ---
MEDS GIVEN PER MAR.
[2016-10-28 21:31] VITALS: BP 121/55
[2016-10-29] VITALS (16 sets, daily range): BP systolic 92–169; BP diastolic 26–75; Ht 170.2 cm; Wt 76.0 kg
--- NOTE | 2016-10-29 00:05 | NUR ---
MT PHONED STATES PATIENT HAVING 4.2 SEC PAUSES WITH HR 40'S. PATIENT ASLEEP AT BEDSIDE. STIMULATED PATIENT AND PT WOKE UP HEART RATE INCREASED TO 52-60.
--- NOTE | 2016-10-29 00:08 | NUR ---
HEART RATE BACK TO SB/SR 58-63.
--- NOTE | 2016-10-29 00:20 | NUR ---
MT PHONED HR 38 WITH 5 SEC PAUSE.INCREASED TO 44 AFTER STIMULATION.
--- NOTE | 2016-10-29 00:25 | NUR ---
MT PHONED PT HAS GONE INTO CAF WITH HR 50-60 THEN BACK INTO SB WITH HR 42.
--- NOTE | 2016-10-29 00:30 | NUR ---
NOTIFIED OLEG FRANCIS SWITCHBOARD MANAGER INFORMED OF PATIENT/S RHYTHM. ORDERS REC'D.
--- NOTE | 2016-10-29 00:35 | NUR ---
PATIENT NOW IN AFIB/FLUTTER WITH HR 50.NOTIFIED DR. MEJIA CUT OFF SAW TENDER METAL OF CONSULT AND PATIENT'S ARRTHYMIAS. ORDER REC'D. WILL CONSULT NEPHROLOGY IN AM PER OLEG FRANCIS.REQUEST.
[2016-10-29 06:13] LABS: BASOPHILS 0.3 % (0-2); EOSINOPHILS 2.4 % (0-7); HEMATOCRIT 28.7 % (42.0-54.0); HEMOGLOBIN 9.2 g/dL (13.5-17.5); IMMATURE GRANULOCYTES 0.3 % (0-5); LYMPHOCYTES 22.4 % (15-50); MCH 30.6 pg (26.0-34.0); MCHC 32.1 g/dL (31.0-37.0); MCV 95.3 fL (80.0-100.0); MEAN PLATELET VOLUME 11.8 fL (7.4-10.4); MONOCYTES 11.5 % (2-11); NEUTROPHILS 63.1 % (40-80); PLATELET COUNT 409 10x3/uL (130-400); RBC 3.01 10x6/uL (4.20-6.10); RDW 15.1 % (11.5-14.5); WBC 11.9 10x3/uL (4.8-10.8)
--- NOTE | 2016-10-29 06:30 | NUR ---
MEDS GIVEN IN APPLESAUCE
[2016-10-29 06:55] LABS: ANION GAP 7.7 mmol/L (8-16); CALCIUM 8.6 mg/dL (8.5-10.1); CREATININE - SERUM 1.7 mg/dL (0.6-1.3); POTASSIUM - SERUM 3.7 mmol/L (3.5-5.1); THYROID STIMULATING HORMONE 5.54 uIU/mL (0.36-3.74)
--- NOTE | 2016-10-29 07:09 | NUR ---
C/O HEADACHE TYLENOL 650MG PO GIVEN FOR RELIEF OF HEADACHE PAIN.
--- NOTE | 2016-10-29 07:15 | NUR ---
PATIENT RECEIVED ALERT IN MID BLAND POSITION. RESPIRATIONS EVEN AND UNLABORED. SIDE RAILS UP X3. BED IN LOW POSITION. CALL LIGHT IN REACH. JAVON ALARM ON.
--- NOTE | 2016-10-29 08:22 | NUR ---
ALERT IN BED WITH FAMILY AT BEDSIDE. SCHEDULED MEDICATION ADMINISTERED CRUSHED WITH APPLESAUCE. WELL TOLERATED. SIDE RAILS UP X2. BED IN LOW POSITION. CALL LIGHT IN REACH.
[2016-10-29 10:11] LABS: APTT 28.6 SECONDS (22.8-39.4); INR 1.05 (0.85-1.17); PROTIME 13.6 SECONDS (11.6-15.0)
--- NOTE | 2016-10-29 10:40 | NUR ---
ORDER TO CANCEL EEG. PERCOCET AND SEROQUEL ADMINISTERED PER ORDERS. WELL TOLERATED. FAMILY PRESENT. SIDE RAILS UP X3. BED IN LOW POSITION. CALL LIGHT IN REACH. SCDS ON BILATERALLY. JAVON ALARM ON. DENIES NEEDS.
--- NOTE | 2016-10-29 12:30 | NUR ---
PATIENT IN LEFT LATERAL POSITION RESTING WITH EYES CLOSED. RESPIRATIONS EVEN AND UNLABORED. SIDE RAILS UP X3. BED IN LOW POSITION. CALL LIGHT IN REACH. JAVON ALARM ON.
--- NOTE | 2016-10-29 13:00 | NUR ---
REVENUE ACCOUNTING MANAGER REPORTS 2 SEC PAUSE WITH PULSE OF 36. PCP ON FLOOR MAKING ROUNDS AND NOTIFIED WELL KENNETH WITH DR SALGUERO AND KING WITH DR MEJIA. ORDER RECEIVED TO TRANSFER TO CVICU
--- NOTE | 2016-10-29 13:58 | NUR ---
OT NOTE: ATTEMPTED TO COMPLETE EVAL, HOWEVER, PT BEING TRANSFERRED FOR PACEMAKER PLACEMENT TOMORROW
--- NOTE | 2016-10-29 14:00 | NUR ---
PATIENT TRANSFERRED TO CVICU VIA BED. REPORT GIVEN TO NIGEL CABA
--- NOTE | 2016-10-29 14:00 | NUR ---
REC'D PT VIA BED, PT LETHARGIC, NON RESPONSIVE, 2LNC, PT ACCOMPANIED BY HOSPITAL STAFF.
--- NOTE | 2016-10-29 15:00 | NUR ---
PT FAMILY AT THE BEDSIDE, ALL QUESTIONS ANSWERED, VSS, WILL CONTINUE TO MONITOR PT.
--- NOTE | 2016-10-29 15:44 | NUR ---
Patient Name: LEXI ROB Admission Status: Elective Accout number: [id number] Admission Date: 10-28-2016 : 1935 Admission Diagnosis:ALTERED MENTAL STATUS, UNSPECIFIED Attending: GLENNA Current LOS: 1 Anticipated DC Date: 11-02-2016 Planned Disposition: Home Primary Insurance: [employer] CHOICE PPO MCR ADVANT Discharge Planning Comments: CM MET WITH PATIENTS REGARDING D/C NEEDS AND PLANS. STATED SHE WILL DRIVE PATIENT HOME AT DISCHARGE AND THERE ARE 7 STEPS W/RAILS TO ENTER HOME AND NO STAIRS INSIDE. PATIENT IS INDEPENDENT WITH HIS CARE AND HAS A WALKER, NEBULIZER, O2, PORTABLE O2, AND GLUCOMETER (CHECKS 2X DAY). PATIENT THINKS IT IS [facility] IN [place] THAT SUPPLIES PATIENTS OXYGEN. DOES NOT THINK PATIENT WILL NEED HOME HEALTH AT DISCHARGE. CM WILL CONTINUE TO FOLLOW PATIENT WITH D/C NEEDS AND PLANS. PCP DR. LOCK [facility]- [phone] ULISSES ROB () [phone] Strategic Partnership Representative: Daniella Mccormick How many steps to enter\exit or inside your home? 7 RAILS 0 * PCP DR. LOCK 0 * Pharmacy [facility] 0 * Preadmission Environment Home with Family 0 * ADLs Independent 0 * Equipment Glucometer Nebulizer Oxygen Walker 0 * Other Equipment PORTABLE O2 (COULD NOT REMEMBER SUPPLIER) 0 * List name and contact numbers for known caregivers / representatives who currently or will assist patient after discharge: ULISSES DARRON ([phone]) 0 * Community resources currently utilized None 0 * Additional services required to return to the preadmission environment? Yes 0 * Can the patient safely return to the preadmission environment? Yes 0 * Has this patient been hospitalized within the prior 30 days at any hospital? No 0 Grand Total: 0
--- NOTE | 2016-10-29 17:15 | NUR ---
SPEAKING WITH FAMILY AT THE BEDSIDE ABOUT PACEMAKER PLACEMENT
--- NOTE | 2016-10-29 19:20 | NUR ---
SHIFT ASSESSMENT COMPLETED. SEE ASSESSMENT FLOWSHEET. LETHARGIC. OPENS EYES. DOES NOT ANSWER QUESTIONS ASKED. DOES SQUEEZE RT HAND TO COMMAND. LEFT SIDE FLACCID. PLACED FOOT BOOT TO LLE. PILLOW PLACED UNDER LEGS TO BRIDGE HEELS. SINUS BRADYCARDIA ON THE MONITOR IN THE MID TO UPPER 40'S. BRUSING TO LOWER ARMS BILATERLALLY. LUE PLACED ONTO PILLOW TO ELEVATE. +2 SWELLING NOTED TO LUE. O2 @ 3LPM/NC. O2 SATS 96%. AT BEDSIDE. PEREZ CATHETER TO GRAVITY DRAINING CLEAR, BAUTISTA URINE. WILL MONITOR.
--- NOTE | 2016-10-29 21:20 | NUR ---
AWOKE ENOUGH WITH VERBAL AND TACTILE STIMULATION AND SPOKE THAT HE COULD TAKE HIS MEDS. WILL HOLD OFF ON SEROQUEL FOR THIS EVENINGS DOSE DUE TO LETHARGY FOR NOW.
--- NOTE | 2016-10-29 21:30 | NUR ---
2100 MEDS CRUSHED AND GIVEN IN APPLESAUCE. TOLERATED WELL. TURNED AND REPOSITIONED TO RT SIDE W/ PILLOW SUPPORT. HOB 30 DEGREES. AT BEDSIDE. WILL MONITOR.
--- NOTE | 2016-10-29 23:10 | NUR ---
REASSESSMENT COMPLETED. SEE ASSESSMENT FLOWSHEET. REMAINS AT BEDSIDE. TEMP ASSESSED. NO NEW ACUTE CHANGES NOTED. WILL MONITOR.
[2016-10-30] VITALS (31 sets, daily range): BP systolic 102–187; BP diastolic 42–90
--- NOTE | 2016-10-30 00:35 | NUR ---
HEART RATE INCREASED TO 65. MOVING RT ARM AND LEG AROUND IN BED AND TRYING TO MOVE COVERS OFF OF HIM IT APPEARS. MORE ALERT. ANSWERS QUESTIONS. DISORIENTED TO TIME, PLACE AND SITUATION. REORIENTED. KNOWS HIS AND 'S NAME. INFORMED OF NPO STATUS AFTER MIDNIGHT BUT REQUESTED IF OK TO HAVE SEROQUEL THAT WAS HELD EARLIER. WITH SMALL SPOONFUL OF APPLESAUCE, SEROQUEL GIVEN. REPOSITIONED IN BED. KEPT FAVORING HIS RT SIDE AND WAS ON SIDERAIL. WILL MONITOR.
--- NOTE | 2016-10-30 02:20 | NUR ---
MOVING RT ARM AROUND AND TRYING TO REACH FOR PEREZ CATHETER. AT BEDSIDE ATTEMPTING TO HOLD HIS HAND. WHEN WALKING IN AND ASKING IF HE WAS HOT OR COLD, STATES 'I'M FREEZING TO ". COVERED WITH SHEET AND PILLOW TO PREVENT HIS GETTING AT PEREZ. HR IN THE 60'S. WILL MONITOR.
--- NOTE | 2016-10-30 03:30 | NUR ---
REASSESSMENT COMPLETED. SEE ASSESSMENT. CONSTANTLY MOVING RT ARM AND RT LEG. RAMBLING RANDOM THINGS AT PRESENT. WANTING WATER. EXPLAINED REASON FOR NOT HAVING WATER AT THIS TIME. REPORTING HE WILL TALK TO DR. SALGUERO. ALSO STATING "JUST GIVE ME A GUN SO I CAN SHOOT MYSELF IN THE HEAD". DISORIENTED. REORIENTED. I & O'S COMPLETED. EMPTIED APPROX. 300ML OF URINE AT ONCE WHEN MILKING. WILL MONITOR.
--- NOTE | 2016-10-30 05:00 | NUR ---
BED BATH AND LINEN CHANGE COMPLETED. CLIPPED HAIR FROM CHIN TO NIPPLE LINE FOR PACEMAKER PLACEMENT TODAY. USED HIBICLENS TO BATH WITH. PULLED UP IN BED AND REPOSITIONED TO RT SIDE. WILL MONITOR.
--- NOTE | 2016-10-30 05:30 | NUR ---
IN PROCESS OF BATH, ASKED HIM ORIENTATION QUESTIONS AND PATIENT ABLE TO STATE HE IS IN THE HOSPITAL AND IT IS BECAUSE HE HAD A STROKE WITHOUT ANY PROMPTING.
--- NOTE | 2016-10-30 05:45 | NUR ---
TURNED TO LEFT SIDE PER PT REQUEST. AFIB IN THE 90'S ON THE MONITOR. WILL AWAIT TO SEE IF IT CONTINUE TO CALL MD. WILL MONITOR.
--- NOTE | 2016-10-30 06:08 | NUR ---
A-FIB CONTINUES, VARIES RATES FROM 60'S-90'S. HISTORY IS CRONIC FIB AND AMIO STOPPED YESTERDAY. WILL MONITOR.
--- NOTE | 2016-10-30 06:25 | NUR ---
BACK IN SINUS RENATO IN THE 50'S ON THE MONITOR.
--- NOTE | 2016-10-30 08:15 | NUR ---
A.M. MEDS GIVEN WITH SMALL SIP OF THICKENED WATER.
--- NOTE | 2016-10-30 11:50 | NUR ---
AGGITATED. STATES NO ONE IS HELPING HIM AND THAT EVERYONE HAS LIED TO HIM. ATIVAN PER ORDER.
--- NOTE | 2016-10-30 12:31 | NUR ---
PT REMAINS AGGITATED THROWING PILLOWS AND LINENS ON THE FLOOR. STATES "EVERYONE IS LYING TO ME"
--- NOTE | 2016-10-30 15:05 | NUR ---
TO OR VIA BED.
--- NOTE | 2016-10-30 17:21 | NUR ---
RETURNED FROM OR VIA BED.
--- NOTE | 2016-10-30 17:41 | NUR ---
OK TO RESTART CLONIDINE AND CORDARONE PER DR. PETTIT.
--- NOTE | 2016-10-30 18:42 | NUR ---
ASSISTED PT WITH MEAL. MEDS GIVEN,
--- NOTE | 2016-10-30 19:40 | NUR ---
SHIFT ASSESSMENT COMPLETED. SEE ASSESSMENT FLOWSHEET. AT BEDSIDE. RT ARM IN SLING. RT UPPER CHEST BROWN DRSG TO PACEMAKER INCISION SITE C/D/I. NSR ON THE MONITOR. LEFT ARM WITH +2 SWELLING NOTED. BRUISES TO BILATERAL UE'S. ELEVATED LEFT ARM. LEFT FOOT BOOT ON. HEELS BRIDGED. O2 @ 2LPM/NC. WILL MONITOR.
--- NOTE | 2016-10-30 19:58 | NUR ---
2100 B/P AND OTHER MEDS GIVEN FOR INCREASED B/P IN THE 170'S SYSTOLIC. CRUSHED MEDS IN APPLESAUCE AND TOOK WITHOUT DIFFICULTY. WILL MONITOR.
--- NOTE | 2016-10-30 20:58 | NUR ---
MEDS GIVEN CRUSHED IN APPLESAUCE TO GET B/P DOWN AND FOR AGITATION.
--- NOTE | 2016-10-30 22:10 | NUR ---
DR. SALGUERO MADE AWARE OF SBP 180'S. REVIEWED CURRENT MEDS. NEW ORDER RECEIVED.
--- NOTE | 2016-10-30 23:10 | NUR ---
NOW/STAT DOSE OF PO CLONIDINE GIVEN IN APPLESAUCE. TOLERATED WELL. REASSESSMENT COMPLETED. SEE ASSESSMENT FOR DETAILS. AT BEDSIDE HOLDING RT ARM DOWN. DENIES TO HAVE RESTRAINTS. CONSTANTLY FIDGETING IN BED WITH HIS RT SIDE. RT SLING IN USE. WILL MONITOR.
--- NOTE | 2016-10-30 23:40 | NUR ---
IV ABX HUNG PRESCRIBED. WILL MONITOR.
[2016-10-31] VITALS (21 sets, daily range): BP systolic 95–179; BP diastolic 36–67
--- NOTE | 2016-10-31 00:30 | NUR ---
EYES CLOSED. HR PACED AT 60. NO FREQUENT RT ARM OR LEG MOVEMENT. WILL MONITOR.
--- NOTE | 2016-10-31 02:15 | NUR ---
MILKED PEREZ TUBING. APPROX. 200ML EMPTIED INTO URIMETER. EYES REMAIN CLOSED. AT BEDSIDE, EYES CLOSED. LAYING STILL CURRENTLY. HR PACED AT 60 ON THE MONITOR. WILL MONITOR.
--- NOTE | 2016-10-31 02:33 | NUR ---
MOVING RT ARM AND LEG. HOLDING RT ARM. HR NOW SINUS AT 69-70. WILL MONITOR.
--- NOTE | 2016-10-31 03:06 | NUR ---
OFF THE MONITOR. RL ELECTRODE REPLACED. REASSESSMENT COMPLETED. SEE ASSESSMENT FLOWSHEET. LETHARGIC AND RAMBLES RANDOM THINGS THEN FALL BACK OFF TO SLEEP. LEFT ARM ELEVATED ONTO PILLOW. AT BEDSIDE HOLDING RT ARM, ARM IN SLING. RT UPPER CHEST PACEMAKER INCISION SITE C/D/I. LEFT OLD CVL DRSG C/D/I. LEFT HAND 20G PIV INTACT, NO S/S OF INFILTRATION. NS @ 75ML/HR. WILL MONITOR.
--- NOTE | 2016-10-31 05:05 | NUR ---
NEW BAG OF IV FLUIDS HUNG. SNORING HEARD. AT BEDSIDE AWAKE. INFORMED OF UPCOMING CHEST XRAY. VERBALIZED UNDERSTANDING. WILL MONITOR.
--- NOTE | 2016-10-31 06:00 | NUR ---
PORTABLE CHEST XRAY COMPLETED. EYES CLOSED AND NOT RESPONSIVE TO BEING MOVED IN BED. DID MOVE EYEBROWS WHEN BOARD PLACED BEHIND HIM. NEW DRAWSHEET AND PINK PAD PLACED UNDERNEATH HIM AND EDGAR'S BUTT PASTE APPLIED. NO BM NOTED. TURNED AND REPOSITIONED TO RT SIDE. HEELS BRIDGED. EMPTIED BAG. LEAKING NOTED ON THE FLOOR. FLOOR CLEANED. NEW BAG PLACED DUE TO LEAKING. PATIENT'S AT BEDSIDE DOES NOT WANT TO GIVE 0600 MEDS AT THIS TIME. IV ABX HUNG. WILL MONITOR.
--- NOTE | 2016-10-31 13:06 | OP ---
PATIENT NAME: LEXI ROB MEDICAL RECORD: [id number] :37 LOCATION:[facility] ADMISSION DATE:10/28/16 SURGEON: JAYLON SALGUERO MD DATE OF OPERATION: 10/30/2016 SURGEON: Jaylon Salguero MD ANESTHESIA: General, Dr. Rodriguez. OPERATION PERFORMED: Insertion of dual chamber pacing system. PREOPERATIVE DIAGNOSES: Sick sinus syndrome, long pauses with profound bradycardia. POSTOPERATIVE DIAGNOSES: Sick sinus syndrome, long pauses with profound bradycardia. INDICATION FOR OPERATION: Bradycardia. FINDINGS OF THE OPERATION: The pulse generator is Medtronic Adapta ADDR01, serial number [id number]. Atrial lead: Medtronic model number 4574-45, serial number [id number]. Ventricular lead: Medtronic model number 4077-52, serial number [id number]. LEAD ANALYSIS: Atrial lead threshold 1 volt, current lead threshold 1.6 milliamps, resistance 637 ohms. P-wave 1.4. Ventricular lead threshold 0.2 volts, current lead threshold 0.3 milliamps, resistance 675 ohms, R-wave 4.5. ESTIMATED BLOOD LOSS: Less than 5 cc. DESCRIPTION OF PROCEDURE: After informed consent, adequate preoperative medication and evaluation, the patient was brought to the operating room, placed on the table in the supine position. After induction of general endotracheal anesthesia and application of appropriate monitoring devices, the right chest prepped and draped in a sterile field, utilizing Betadine scrub, alcohol, and Betadine solution. A Betadine-impregnated drape was also used, 1% lidocaine was infiltrated in the right subclavicular space. An incision made and dissection carried down the fascia. Hemostasis maintained with electrocautery. The subclavian vein was cannulated with introducers, leads placed in the heart. The above electrophysiologic study was done. The leads were felt to be in good position. The leads were secured and connected to the pulse generator. Pacemaker fired, captured and sensed appropriately. Pacemaker pocket was irrigated. The device was placed in the pocket and secured. Pocket was again irrigated. Instrument count and sponge count were correct times 2. Pocket was closed in layers utilizing 3-0 Vicryl on deep subcutaneous tissue, 5-0 subcuticular Monocryl on the skin. Sterile dressings were applied. The patient tolerated the procedure well and was transferred to CV ICU in satisfactory condition. TRANSINT:[id number] Voice Confirmation ID: [id number] DOCUMENT ID: [id number] OPERATIVE REPORT [id number] LEXI ROB EDWARD MD at 1306 CC: [id number] DICTATION DATE: 10/30/16 170 NATUROPATHIC PHYSICIAN: 10/31/16 0033 ADM IN [place] [id number] [place] [id number]
--- NOTE | 2016-10-31 19:30 | NUR ---
SHIFT ASSESSMENT COMPLETED. SEE ASSESSMENT FLOWSHEET. AT BEDSIDE. PUPILS CHECKED WITH LIGHT AND DOES NOT RESIST ANY WITH ASSESSMENT. EYES CLOSED. FAMILY REQUEST TO LET HIM REST. WILL MONITOR.
--- NOTE | 2016-10-31 20:40 | NUR ---
THINKS HE NEEDS TO HAVE A BM. PLACED ONTO BEDPAN. FLATULENCE HEARD. NO BM RESULTS. PULLED UP IN BED AND TURNED TO LEFT SIDE. PILLOWS PLACED BEHIND HIM AND BETWEEN BODY PROMINENCES. HUMIDIFICATION ADDED TO O2 DUE TO C/O DRY NOSE AND PAIN TO LEFT NARE. 2057: CRUSHED MEDS AND 2100 MEDS GIVEN IN APPLESAUCE. SWALLOWED WITHOUT DIFFICULTY. WILL MONITOR.
--- NOTE | 2016-10-31 21:45 | NUR ---
PRN PERCOCET GIVEN FOR RT SHOULDER PAIN CRUSHED IN APPLESAUSE. REPORTS HE HOPES THAT HELPS HIS SHOULDER AND HE CAN GO BACK TO SLEEP.
--- NOTE | 2016-10-31 22:20 | NUR ---
wanting to change sides to lay on. Repositioned to rt side. Denies any other needs. Will monitor. KAROL
[2016-11-01] VITALS (24 sets, daily range): BP systolic 130–170; BP diastolic 49–80
--- NOTE | 2016-11-01 00:05 | NUR ---
EYES CLOSED. NO ACUTE DISTRESS NOTED. REASSESSMENT COMPLETED. SEE ASSESSMENT FLOWSHEET. AT BEDSIDE. PACED RHYTHM AT 60 BPM ON THE MONITOR AT 60. WILL CONTINUE TO MONITOR.
--- NOTE | 2016-11-01 01:42 | NUR ---
REPOSITIONED IN BED FOR PRESSURE RELIEF. EYES CLOSED. NO ACUTE DISTRESS NOTED. WILL MONITOR.
--- NOTE | 2016-11-01 03:20 | NUR ---
REASSESSMENT COMPLETED. SEE ASSESSMENT FLOWSHEET. O2 SATS UPON ENTERING 88% CONSISTENTLY. ASKED HIM TO TAKE A DEEP BREATH. DID SO AND O2 SATS CAME UP. STATED HIS MOUTH WAS DRY. THICKENED WATER GIVEN PER REQUEST. NO NEW ACUTE CHANGES IN ASSESSMENT. WILL MONITOR.
--- NOTE | 2016-11-01 04:50 | NUR ---
EMPTIED URINARY CATHETER AND INTAKE ASSESSED. AT BEDSIDE DENIES TO HAVE HIM TURNED/REPOSITIONED AT THIS TIME. COFFEE GIVEN TO PER REQUEST.
[2016-11-01 04:52] LABS: BASOPHILS 0.4 % (0-2); EOSINOPHILS 6.6 % (0-7); HEMATOCRIT 27.3 % (42.0-54.0); HEMOGLOBIN 8.6 g/dL (13.5-17.5); IMMATURE GRANULOCYTES 0.4 % (0-5); LYMPHOCYTES 25.8 % (15-50); MCH 30.8 pg (26.0-34.0); MCHC 31.5 g/dL (31.0-37.0); MCV 97.8 fL (80.0-100.0); MEAN PLATELET VOLUME 11.4 fL (7.4-10.4); MONOCYTES 10.1 % (2-11); NEUTROPHILS 56.7 % (40-80); RBC 2.79 10x6/uL (4.20-6.10); RDW 15.3 % (11.5-14.5); WBC 10.7 10x3/uL (4.8-10.8)
[2016-11-01 04:53] LABS: PLATELET COUNT 309 10x3/uL (130-400)
[2016-11-01 05:25] LABS: ALBUMIN 2.5 g/dL (3.4-5.0); ANION GAP 7.3 mmol/L (8-16); BILIRUBIN - TOTAL 0.39 mg/dL (0.2-1.3); CALCIUM 8.1 mg/dL (8.5-10.1); CARBON DIOXIDE 32.2 mmol/L (21.0-32.0); CREATININE - SERUM 1.4 mg/dL (0.6-1.3); POTASSIUM - SERUM 3.5 mmol/L (3.5-5.1); PROTEIN - SERUM 5.5 g/dL (6.4-8.2); THYROID STIMULATING HORMONE 2.97 uIU/mL (0.36-3.74)
--- NOTE | 2016-11-01 06:10 | NUR ---
0600 MEDS GIVEN CRUSHED IN APPLESAUCE. TOLERATED WELL. WILL MONITOR.
--- NOTE | 2016-11-01 19:00 | NUR ---
REPORT RECEIVED AND ASSESSMENT COMPLETED. SEE FLOWSHEET FOR FULL DETAILS. VSS. WILL MONITOR THROUGHOUT SHIFT. PT REPOSITIONED IN BED. THICKENED DRINK PROVIDED.
--- NOTE | 2016-11-01 21:48 | NUR ---
PRN CATAPRES GIVEN FOR ELEVATED PRESSURE. NO OTHER CHANGES IN STATUS AT THIS TIME. VSS. WILL MONITOR CLOSELY.
[2016-11-02] VITALS (12 sets, daily range): BP systolic 109–196; BP diastolic 48–71
--- NOTE | 2016-11-02 00:36 | NUR ---
PT HAS RECEIVED ALL PRN MEDS FOR B/P. B/P STILL ELEVATED AND INCREASING. CONTACTED DR FREEMAN. NEW ORDERS RECEIVED FOR CATAPRES 0.2MG WITH A REPEAT ADMINISTRATION IN 2 HRS. WILL MONITOR B/P CAREFULLY.
--- NOTE | 2016-11-02 01:30 | NUR ---
B/P BACK WITHIN NORMAL PARAMETERS. WILL CONTINUE TO MONITOR FOR CHANGES. VSS.
--- NOTE | 2016-11-02 03:35 | NUR ---
REASSESSMENT COMPLETED. SEE FLOWSHEET FOR FULL DETAILS. VSS. B/P NOW 124/60. WILL CONTINUE TO MONITOR.
[2016-11-02 05:17] LABS: BASOPHILS 0.3 % (0-2); EOSINOPHILS 7.3 % (0-7); HEMATOCRIT 26.5 % (42.0-54.0); HEMOGLOBIN 8.5 g/dL (13.5-17.5); IMMATURE GRANULOCYTES 0.1 % (0-5); LYMPHOCYTES 26.3 % (15-50); MCHC 32.1 g/dL (31.0-37.0); MCV 96.7 fL (80.0-100.0); MEAN PLATELET VOLUME 11.4 fL (7.4-10.4); MONOCYTES 12.6 % (2-11); NEUTROPHILS 53.4 % (40-80); PLATELET COUNT 294 10x3/uL (130-400); RBC 2.74 10x6/uL (4.20-6.10); RDW 15.2 % (11.5-14.5); WBC 8.9 10x3/uL (4.8-10.8)
[2016-11-02 05:50] LABS: ALBUMIN 2.4 g/dL (3.4-5.0); BILIRUBIN - TOTAL 0.45 mg/dL (0.2-1.3); CALCIUM 8.5 mg/dL (8.5-10.1); CARBON DIOXIDE 31.3 mmol/L (21.0-32.0); CREATININE - SERUM 1.4 mg/dL (0.6-1.3); POTASSIUM - SERUM 3.3 mmol/L (3.5-5.1); PROTEIN - SERUM 5.8 g/dL (6.4-8.2)
--- NOTE | 2016-11-02 06:08 | NUR ---
PT TO XFER TO ROOM 3. WILL CALL REPORT AND ACCOMPANY PT TO NEW ROOM. VSS.
--- NOTE | 2016-11-02 07:47 | NUR ---
ASSESSMENT DONE. DENIES NEEDS
--- NOTE | 2016-11-02 17:49 | NUR ---
WITHOUT CHANGES OR DISTRESS NOTED AT THIS TIME. AT SIDE.
--- NOTE | 2016-11-02 23:44 | NUR ---
THIS PM. PT BATHED BY HOUSE SUPERVISOR AND LINEN CHANGED. NO APPARENT DISTRESS. PEREZ DRAINING CLEAR YELLOW URINE. MONITOR SHOWS SR @60. WILL CONTINUE TO MONITOR.
[2016-11-03 04:11] VITALS: BP 147/93
[2016-11-03 05:47] LABS: BASOPHILS 0.2 % (0-2); HEMATOCRIT 27.3 % (42.0-54.0); HEMOGLOBIN 8.6 g/dL (13.5-17.5); IMMATURE GRANULOCYTES 0.2 % (0-5); LYMPHOCYTES 22.6 % (15-50); MCH 30.7 pg (26.0-34.0); MCHC 31.5 g/dL (31.0-37.0); MCV 97.5 fL (80.0-100.0); MEAN PLATELET VOLUME 11.7 fL (7.4-10.4); MONOCYTES 11.9 % (2-11); NEUTROPHILS 59.1 % (40-80); PLATELET COUNT 285 10x3/uL (130-400); RDW 15.3 % (11.5-14.5); WBC 9.4 10x3/uL (4.8-10.8)
[2016-11-03 06:30] LABS: ANION GAP 6.6 mmol/L (8-16); CALCIUM 8.9 mg/dL (8.5-10.1); CARBON DIOXIDE 33.5 mmol/L (21.0-32.0); CREATININE - SERUM 1.4 mg/dL (0.6-1.3); POTASSIUM - SERUM 3.1 mmol/L (3.5-5.1)
--- NOTE | 2016-11-03 06:38 | NUR ---
SLEPT MAJORITY OF NIGHT. NO DISTRESS.
--- NOTE | 2016-11-03 07:38 | NUR ---
INTRODUCED MYSELF TO PT PRIMARY RN FOR TODAYS SHIFT. PT IS RESTING SLOUCHED DOWN IN BED WITH AT BEDSIDE. PT HAVING A COUGH EPISODE AND STATES "SOMETHING IS STUCK IN MY THROAT" PULLED PT UP IN BED AND SAT HOB AT 90 DEGREES, OFFERED WATER BUT PT DENIED WANTING SOMETHING TO DRINK, ENCOURAGED MORE FLUID INTAKE TO HELP LOOSEN SECRETIONS. PT STATES IT WAS R/T HIS RESP. TX. NOW DENIES ANY TROUBLE OR NEEDS. CL IN REACH. WILL CPOC.
[2016-11-03 09:49] VITALS: BP 181/67
[2016-11-03 13:12] VITALS: BP 156/63
--- NOTE | 2016-11-03 16:58 | NUR ---
OT NOTE: PT SITTING UP IN BED; ALERT, CONVERSANT, VISUALLY ATTENDING TO L HAND; FAMILY WANTED TO DEMONSTRATE HOW WELL HE WAS ABLE TO DRINK OUT OF BOTTLE TODAY. PERFORMED BED MOB WITH MAX ASSIST BUT MUCH MORE ALERT AND ORIENTED THAN PREVIOULSY
--- NOTE | 2016-11-03 16:59 | NUR ---
OT NOTE: PT COMPLETED LUE PROM TO DECREASE RISK OF SKIN BREAKDOWN. THANK YOU, GEETHA PEREZ/Crystal
[2016-11-03 23:50] VITALS: BP 205/81
--- NOTE | 2016-11-04 00:17 | NUR ---
THIS PM PATIENT CO ABD HURTING DUE TO NO BM. PT IS PASSING FLATUS BUT NO BM. REPOSITIONED ON R SIDE. PARTIAL LINEN CHANGE. PEREZ EMPITED. SMALL SKIN TEAR NOTED ON R BUTTOCK. MONITOR SHOWS PACED @ 60.
[2016-11-04 01:32] VITALS: BP 145/60
[2016-11-04 04:16] VITALS: BP 145/61
[2016-11-04 06:37] LABS: BASOPHILS 0.2 % (0-2); EOSINOPHILS 6.1 % (0-7); HEMATOCRIT 28.9 % (42.0-54.0); HEMOGLOBIN 9.3 g/dL (13.5-17.5); IMMATURE GRANULOCYTES 0.1 % (0-5); LYMPHOCYTES 24.8 % (15-50); MCHC 32.2 g/dL (31.0-37.0); MCV 96.3 fL (80.0-100.0); MEAN PLATELET VOLUME 11.8 fL (7.4-10.4); MONOCYTES 12.7 % (2-11); NEUTROPHILS 56.1 % (40-80); PLATELET COUNT 295 10x3/uL (130-400); RDW 15.1 % (11.5-14.5); WBC 9.1 10x3/uL (4.8-10.8)
[2016-11-04 07:02] LABS: ANION GAP 6.9 mmol/L (8-16); CARBON DIOXIDE 36.2 mmol/L (21.0-32.0); CREATININE - SERUM 1.3 mg/dL (0.6-1.3); POTASSIUM - SERUM 3.1 mmol/L (3.5-5.1)
--- NOTE | 2016-11-04 08:07 | NUR ---
ASSESSMENT DONE. DENIES NEEDS.
[2016-11-04 08:33] VITALS: BP 173/65
--- NOTE | 2016-11-04 09:41 | NUR ---
UP IN CHAIR WITH PT ASSIST. RESP UL ON . FAMILY AT BS. WILL CONT. PLAN OF CARE.
[2016-11-04 13:17] VITALS: BP 149/66
--- NOTE | 2016-11-04 14:35 | NUR ---
Nutrition follow-up: Diet: ADA consistent CHO mechanical soft with nectar thick liquids PO intake ~25% Pt c/o constipation Labs reviewed Wt: 184# Ensure started Pt with poor po intake probably due to constipation. Will continue to provide food choices and honor food preferences within diet restrictions. RDN following.
[2016-11-04 17:30] VITALS: BP 170/80
--- NOTE | 2016-11-04 17:52 | NUR ---
WITHOUT CHANGES OR DISTRESS NOTEED AT THIS TIME. DENIES NEEDES
--- NOTE | 2016-11-04 18:00 | NUR ---
OT NOTE: PT COMPLETED BED MOB WITH MOD A. PT COMPLETED LUE POSITIONING TO DECREASE RISK OF SKIN BREAKDOWN. PT COMPLETED LUE PROM TO REDUCE NEGATIVE EFFECTS OF DECREASE MVMT AND INCREASE ROM. THANK YOU, GEETHA PEREZ/Crystal
--- NOTE | 2016-11-04 19:54 | NUR ---
BREATHING TREATMENT DONE. NO DISTRESS
[2016-11-04 20:00] VITALS: BP 152/58
[2016-11-05] VITALS: BP 182/65
--- NOTE | 2016-11-05 00:33 | NUR ---
PT HAD A VERY SOFT BM. COMPLETE BED BATH DONE AND LINEN CHANGED. PT TURNED TO LEFT SIDE. DRESSING OFF PACEMAKER SITE. INCISION CLEAN DRY INTACT WITHOUT ANY REDNESS OR HEMATOMA.
[2016-11-05 04:00] VITALS: BP 186/62
[2016-11-05 06:56] LABS: BASOPHILS 0.2 % (0-2); EOSINOPHILS 4.9 % (0-7); HEMATOCRIT 28.2 % (42.0-54.0); HEMOGLOBIN 8.9 g/dL (13.5-17.5); IMMATURE GRANULOCYTES 0.2 % (0-5); LYMPHOCYTES 25.1 % (15-50); MCH 30.3 pg (26.0-34.0); MCHC 31.6 g/dL (31.0-37.0); MCV 95.9 fL (80.0-100.0); MONOCYTES 11.4 % (2-11); NEUTROPHILS 58.2 % (40-80); PLATELET COUNT 283 10x3/uL (130-400); RBC 2.94 10x6/uL (4.20-6.10); RDW 14.9 % (11.5-14.5); WBC 8.7 10x3/uL (4.8-10.8)
[2016-11-05 07:11] LABS: ANION GAP 4.1 mmol/L (8-16); CALCIUM 8.7 mg/dL (8.5-10.1); CREATININE - SERUM 1.3 mg/dL (0.6-1.3); POTASSIUM - SERUM 3.1 mmol/L (3.5-5.1)
[2016-11-05 07:54] VITALS: BP 162/57
--- NOTE | 2016-11-05 10:00 | NUR ---
RESTING QUIETLY RESP UNLABORED NAD NOTED
--- NOTE | 2016-11-05 10:14 | NUR ---
ASSESSMENT COMPLETED. INCISION TO RIGHT CHEST CLEN AND DRY, NO REDDNES OR SWELLING. PEREZ CATH PATENT. LEFT HAND SL. SCDS ON. DENIES ANY NEEDS. CALL LIGHT IN REACH WITH SR UP
[2016-11-05 12:01] VITALS: BP 118/54
[2016-11-05 16:41] VITALS: BP 137/44
--- NOTE | 2016-11-05 17:07 | NUR ---
OT NOTE: PT COMPLETED BED MOB WITH MARTI Leung. PT COMPLETED LUE POSITIONING AND PROM TO INCREASE AND FACILITATE NEUROPLASTICITY. PT COMPLETED ORAL HYGIENE. THANK YOU, TUAN PEREZ
--- NOTE | 2016-11-05 18:22 | NUR ---
DENIES ANY NEEDS. FAMILY AT BEDSIDE. REPOSITIONED FOR COMFORT. WILL MONITOR
[2016-11-05 22:47] VITALS: BP 166/66
--- NOTE | 2016-11-05 23:12 | NUR ---
AFTER MED PASS, CALLED TO ROOM PT CO TIGHTENING IN CHEST. MONITOR SHOWS PACED RHYTHM AT 60. PULSE OX IS 98. WARM AND DRY. NO DIAPHORESIS. O2 AT 2L. NITRO GIVEN SL PER ORDER. ALSO ZOFRAN AND ATIVAN GIVEN PO. EARLIER PAIN MED GIVEN WITH PM MEDS. BREATHING TREATMENT GIVEN ALSO. WILL CONTINUE TO MONITOR.
--- NOTE | 2016-11-06 00:36 | NUR ---
PATIENT SLEEPING AT THIS TIME. MONITOR UNCHANGED
[2016-11-06 01:51] VITALS: BP 180/61
[2016-11-06 05:03] LABS: BASOPHILS 0.3 % (0-2); EOSINOPHILS 4.4 % (0-7); HEMATOCRIT 29.9 % (42.0-54.0); HEMOGLOBIN 9.4 g/dL (13.5-17.5); IMMATURE GRANULOCYTES 0.3 % (0-5); LYMPHOCYTES 22.7 % (15-50); MCH 30.3 pg (26.0-34.0); MCHC 31.4 g/dL (31.0-37.0); MCV 96.5 fL (80.0-100.0); MEAN PLATELET VOLUME 11.7 fL (7.4-10.4); MONOCYTES 11.1 % (2-11); NEUTROPHILS 61.2 % (40-80); PLATELET COUNT 305 10x3/uL (130-400); RDW 15.1 % (11.5-14.5)
[2016-11-06 05:05] LABS: WBC 11.7 10x3/uL (4.8-10.8)
[2016-11-06 05:13] VITALS: BP 178/68
[2016-11-06 05:17] LABS: ANION GAP 6.8 mmol/L (8-16); CALCIUM 9.1 mg/dL (8.5-10.1); CARBON DIOXIDE 34.1 mmol/L (21.0-32.0); CREATININE - SERUM 1.5 mg/dL (0.6-1.3); POTASSIUM - SERUM 3.9 mmol/L (3.5-5.1)
--- NOTE | 2016-11-06 07:10 | NUR ---
RESTING QUIETLY EYES CLOSED RESP UNLABORED NAD NOTED
--- NOTE | 2016-11-06 07:40 | NUR ---
ASSESSMENT COMPLETED. DENIES ANY NEEDS. TELEMERTY SHOWS SR 67. LEFT HAND SL. PEREZ PATENT TO GRAVITY BAG. SR UP WITH CALL LIGHT IN USE . WILL MONITOR
[2016-11-06 08:25] VITALS: BP 146/55
[2016-11-06 11:30] VITALS: BP 100/54
--- NOTE | 2016-11-06 14:04 | NUR ---
Nutrition follow-up: Diet: Regular mechanical soft PO intake ~50% of meals Labs reviewed +BM Pts po intake improving since having a BM RDN following.
[2016-11-06 16:00] VITALS: BP 117/57
--- NOTE | 2016-11-06 17:24 | NUR ---
Patient Name: LEXI ROB Encounter No: [id number] : 1935 Primary Insurance: [employer] CHOICE PPO MCR [employer]VANT Anticipated DC Date: 11-02-2016 Planned Disposition: Senior Living Facility External Planned Provider: [facility] OR [facility] DCP follow-up note: CM SPOKE TO PENNY LEMA WHO INFORMED CM THAT FAMILY IS WANTING REHAB FOR PT BUT NOT INPATIENT. CM MET WITH PT, SPOUSE AND DAUGHTER IN ROOM. PT SLEEPING THORUGHOUT INTERVIEW. PT'S FAMILY REPORT THAT PT NEEDS REHAB BUT CANNOT PARTICIPATE IN THREE HOURS OF PROGRESSIVE THERAPY AND THINK THAT BEING PUSHED TOO HARD IN REHAB AT [facility] CONTRIBUTED TO PT'S BEING READMITTED. CM DISCUSSED REHAB OPTIONS. FAMILY WANTS PT IN INTERMEDIATE REHAB AT [facility] OR [facility], IN THAT ORDER. CHOICE SIGNED. FAMILY THINKS THAT PT WILL BE HERE OVER THE WEEKEND DUE TO CHANGES IN MENTAL STATUS AND NEEDING FURHTER TESTING. CM FAXED REFERRALS TO [facility] AND [facility]. CM WILL FOLLOW UP WITH BOTH FACILITIES REGARDING BED AVAILABILITY AND ADMISSION DETERMINATION. DALILA DENNY, CASE MANAGEMENT
--- NOTE | 2016-11-06 18:40 | NUR ---
LYING QUIETLY WITH HOB UP. HAD A MEDIUM SIZED BM. DENIES ANY NEEDS. FAMILY AT BEDSIDE
[2016-11-06 19:00] VITALS: BP 170/65
--- NOTE | 2016-11-06 19:15 | NUR ---
RECEIVED REPORT FROM DAY NURSE, FAMILY AT BEDSIDE, PT LYING ON R.SIDE, 02-2L, [id number], IV-L.HAND-SL, BED IS LOW, SRX3, CALL LIGHT IN REACH, WILL CONTINUE PLAN OF CARE
[2016-11-07] VITALS: BP 115/41
[2016-11-07 04:00] VITALS: BP 119/50
--- NOTE | 2016-11-07 04:01 | NUR ---
ASSESSMENT COMPLETE, SEE FLOWSHEET, FAMILY AT BED SIDE, CALL LIGHT IN REACH, WILL CONTINUE PLAN OF CARE
[2016-11-07 04:39] LABS: BASOPHILS 0.3 % (0-2); EOSINOPHILS 3.4 % (0-7); HEMATOCRIT 28.9 % (42.0-54.0); HEMOGLOBIN 9.1 g/dL (13.5-17.5); IMMATURE GRANULOCYTES 0.2 % (0-5); LYMPHOCYTES 22.1 % (15-50); MCH 30.8 pg (26.0-34.0); MCHC 31.5 g/dL (31.0-37.0); MEAN PLATELET VOLUME 11.3 fL (7.4-10.4); PLATELET COUNT 273 10x3/uL (130-400); RBC 2.95 10x6/uL (4.20-6.10); RDW 15.2 % (11.5-14.5); WBC 10.4 10x3/uL (4.8-10.8)
[2016-11-07 05:03] LABS: ANION GAP 6.4 mmol/L (8-16); CALCIUM 9.3 mg/dL (8.5-10.1); CARBON DIOXIDE 33.1 mmol/L (21.0-32.0); CREATININE - SERUM 1.7 mg/dL (0.6-1.3); POTASSIUM - SERUM 4.5 mmol/L (3.5-5.1)
--- NOTE | 2016-11-07 07:42 | NUR ---
ASSESSMENT DONE. DENIES NEEDS,
[2016-11-07 08:54] VITALS: BP 171/68
--- NOTE | 2016-11-07 09:06 | NUR ---
RESTS WITH EYES CLOSED. RESP UL OM . AT BS. WILL CONT. PLAN OF CARE.
[2016-11-07 12:20] VITALS: BP 95/51
[2016-11-07 17:16] VITALS: BP 109/54
--- NOTE | 2016-11-07 17:32 | NUR ---
WITHOUT CHANGES OR DISTRSS NOTED AT THIS TIME. FAMILY AT SIDE.
--- NOTE | 2016-11-07 19:35 | NUR ---
PT AWAKE AND ALERT. SON AT BEDSIDE. PT C/O NAUSEA AND PAIN. MEDICATED WITH ZOFRAN BY MOUTH AND PERCOCET ONE TABLET FOR PAIN. SCDS IN PLACE. NO IV ACCESS. SEE SHIFT ASSESSMENT. CPOC.
[2016-11-07 20:00] VITALS: BP 146/59
--- NOTE | 2016-11-07 23:00 | NUR ---
HS MEDS GIVEN. NOW AT BEDSIDE. PT RESTING WITH NO DISTRESS. CPOC.
[2016-11-08] VITALS (7 sets, daily range): BP systolic 044–162; BP diastolic 50–77
--- NOTE | 2016-11-08 01:33 | NUR ---
PT HAS NOW HAD 2 SOFT FORMED BMS AND CARE PROVIDED. AT BEDSIDE. CPOC.
[2016-11-08 05:21] LABS: BASOPHILS 0.3 % (0-2); EOSINOPHILS 4.5 % (0-7); HEMOGLOBIN 9.2 g/dL (13.5-17.5); IMMATURE GRANULOCYTES 0.2 % (0-5); LYMPHOCYTES 26.2 % (15-50); MCH 29.8 pg (26.0-34.0); MCHC 30.7 g/dL (31.0-37.0); MCV 97.1 fL (80.0-100.0); MEAN PLATELET VOLUME 12.1 fL (7.4-10.4); MONOCYTES 10.5 % (2-11); NEUTROPHILS 58.3 % (40-80); PLATELET COUNT 263 10x3/uL (130-400); RBC 3.09 10x6/uL (4.20-6.10); RDW 14.9 % (11.5-14.5); WBC 9.1 10x3/uL (4.8-10.8)
[2016-11-08 05:48] LABS: ANION GAP 7.3 mmol/L (8-16); CALCIUM 9.4 mg/dL (8.5-10.1); CARBON DIOXIDE 34.4 mmol/L (21.0-32.0); CREATININE - SERUM 1.8 mg/dL (0.6-1.3); POTASSIUM - SERUM 4.7 mmol/L (3.5-5.1)
--- NOTE | 2016-11-08 07:55 | NUR ---
ASSESSMENT DONE. DENIES NEEDS.
--- NOTE | 2016-11-08 09:03 | NUR ---
RESP UL ON . RESTS WITH EYES CLOSED. AT BS. WILL CONT. PLAN OF CARE.
[2016-11-08 12:28] LABS: BASOPHILS 0.3 % (0-2); EOSINOPHILS 3.9 % (0-7); HEMATOCRIT 31.6 % (42.0-54.0); HEMOGLOBIN 9.9 g/dL (13.5-17.5); IMMATURE GRANULOCYTES 0.2 % (0-5); LYMPHOCYTES 22.3 % (15-50); MCH 30.8 pg (26.0-34.0); MCHC 31.3 g/dL (31.0-37.0); MCV 98.4 fL (80.0-100.0); MEAN PLATELET VOLUME 11.6 fL (7.4-10.4); MONOCYTES 11.8 % (2-11); NEUTROPHILS 61.5 % (40-80); PLATELET COUNT 286 10x3/uL (130-400); RBC 3.21 10x6/uL (4.20-6.10); RDW 14.9 % (11.5-14.5); WBC 9.4 10x3/uL (4.8-10.8)
[2016-11-08 12:37] LABS: ANION GAP 6.7 mmol/L (8-16); CALCIUM 9.3 mg/dL (8.5-10.1); CARBON DIOXIDE 33.5 mmol/L (21.0-32.0); CREATININE - SERUM 1.9 mg/dL (0.6-1.3); POTASSIUM - SERUM 4.2 mmol/L (3.5-5.1)
--- NOTE | 2016-11-08 17:23 | NUR ---
SON AT SIDE. WITHOUT CHANGES OR DISTRESS NOTED AT THIS TIME.
--- NOTE | 2016-11-08 20:00 | NUR ---
RESUMED CARE OF PT, LYING IN BED RESPIRATIONS EVEN AND UNLABORED ON 2LPM VIA NC. SON AT BEDSIDE. REQUESTS PEPCID FOR INDIGESTION. 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 SCDS ON AT THIS TIME. CALL LIGHT IN REACH. WILL CONTINUE TO MONITOR. SEE NURSE ASSESSMENT.
--- NOTE | 2016-11-08 21:20 | NUR ---
FSBS 114. ASSISSTED RAJNI BOOKER IN CLEANING AND REPOSITIONING PT. LARGE BM. STATES HIS STOMACH FEELS BETTER. CALL LIGHT IN REACH. WILL CONTINUE TO MONITOR.
--- NOTE | 2016-11-09 02:55 | NUR ---
DISCUSSED WITH ABOUT CONTINUING CONFUSION AND RESTLESSNESS. WOULD LIKE TO RULE OUT A UTI. WILL CONTINUE TO MONITOR. CALL LIGHT IN REACH.
[2016-11-09 05:30] LABS: BASOPHILS 0.3 % (0-2); EOSINOPHILS 2.1 % (0-7); HEMOGLOBIN 10.3 g/dL (13.5-17.5); IMMATURE GRANULOCYTES 0.3 % (0-5); LYMPHOCYTES 18.5 % (15-50); MCH 30.9 pg (26.0-34.0); MCHC 32.2 g/dL (31.0-37.0); MEAN PLATELET VOLUME 11.7 fL (7.4-10.4); NEUTROPHILS 67.8 % (40-80); PLATELET COUNT 326 10x3/uL (130-400); RBC 3.33 10x6/uL (4.20-6.10); RDW 14.6 % (11.5-14.5)
[2016-11-09 05:44] LABS: WBC 13.9 10x3/uL (4.8-10.8)
[2016-11-09 05:45] LABS: MCV 96.1 fL (80.0-100.0)
[2016-11-09 05:58] LABS: ANION GAP 9.9 mmol/L (8-16); CALCIUM 9.2 mg/dL (8.5-10.1); CREATININE - SERUM 1.8 mg/dL (0.6-1.3); POTASSIUM - SERUM 3.9 mmol/L (3.5-5.1)
--- NOTE | 2016-11-09 07:36 | NUR ---
ASSESSMENT COMPLETED. TELEMERTY SHOWS SR. O2 AT 2 L/M PER NC.PT IS CONFUSED AT TIMES. RESTLESS AND TRYING TO GET OUT OF BED. BED ALARM ON. PEREZ CATH PATENT TO BEDSIDE GRAVITY BAG. SR UP WITH CALL LIGHT IN REACH AND SR UP. PT HAS LEFT SIDED WEAKNESS
[2016-11-09 07:37] VITALS: BP 112/43
--- NOTE | 2016-11-09 11:21 | NUR ---
resting quietly RESP UNLABORED NAD NOTED
[2016-11-09 11:22] VITALS: BP 81/45
--- NOTE | 2016-11-09 12:03 | NUR ---
Patient Name: LEXI ROB Encounter No: [id number] : 1935 Primary Insurance: [employer] CHOICE PPO MCR [employer]VANT Anticipated DC Date: 11-10-2016 Planned Disposition: Shelter Facility External Planned Provider: [facility], MEDICARE REHAB BED DCP follow-up note: CM FAXED CM RECEIVED MESSAGE FROM [employer]ERE STROU[employer] WHO IS OUT OF PT'S INSURANCE NETWORK, [employer] IS IN NETWORK. CM RECEIVED CALL FROM [facility] WHO REPORTS THEY ARE SUBMITTING FOR INSURANCE AUTHORIZATION FOR REHAB. CM NOTIFIED PT AND HIS DAUGHTER IN ROOM, PT'S SPOUSE TO BE HERE AFTER 1430 TODAY. CM WAITING INSURANCE AUTHORIZATION FOR REHAB AT [facility]. Jonnie Gonzalez, CASE MANAGEMENT
--- NOTE | 2016-11-09 12:04 | NUR ---
LYING QUIETLY. DENIES ANY NEEDS. CALL LIGHT IN REACH AND FAMILY AT BEDSIDE. NO NEEDS NOTED
--- NOTE | 2016-11-09 13:43 | NUR ---
LYING QUIETLY WITH EYES CLOSED. REFUSES TO EAT OR DRINK FOR ME. FAMILY AT BEDSIDE. WILL MONITOR
[2016-11-09 15:34] VITALS: BP 88/47
--- NOTE | 2016-11-09 17:08 | NUR ---
Patient Name: LEXI ROB Encounter No: [id number] : 1935 Primary Insurance: [employer] CHOICE PPO MCR ADVANT Anticipated DC Date: 11-10-2016 Planned Disposition: Senior Living Facility External [facility] DCP follow-up note: [facility] ; [employer]'S [employer] REQEUSTING UPDATED TREATMENT NOTES, MAR, PROGRESS NOTES AND ANY WOUND CARE NOTES WELL HISTORY AND PHYSICAL. CM REVIEWED CHART, ELECTRONIC AND PHYSICAL, CM COULD NOT LOCATE H & P FOR THIS STAY. PENNY LEMA NOTIFIED. CM FAXED REQEUSTED INFORMATION WITH H&P FROM INPATIENT REHAB ALONG WITH DISCHARGE INFORMATION FROM INPATIENT REHAB PT WAS DIRECT ADMIT FROM INPATIENT REHAB. CM TO FORWARD H & P TO [place] ONCE ENTERED BY THE DOCTOR. CM WAITING INSURANCE AUTHORIZATION FOR REHAB SERVICES AT [facility]. Jonnie Gonzalez, CASE MANAGEMENT
[2016-11-09 20:28] VITALS: BP 129/57
[2016-11-09 23:54] VITALS: BP 126/59
[2016-11-10 04:05] VITALS: BP 115/47
[2016-11-10 05:45] LABS: BASOPHILS 0.4 % (0-2); EOSINOPHILS 3.8 % (0-7); HEMATOCRIT 29.1 % (42.0-54.0); HEMOGLOBIN 9.1 g/dL (13.5-17.5); IMMATURE GRANULOCYTES 0.3 % (0-5); MCH 30.5 pg (26.0-34.0); MCHC 31.3 g/dL (31.0-37.0); MCV 97.7 fL (80.0-100.0); MEAN PLATELET VOLUME 12.4 fL (7.4-10.4); MONOCYTES 9.4 % (2-11); NEUTROPHILS 61.1 % (40-80); PLATELET COUNT 288 10x3/uL (130-400); RBC 2.98 10x6/uL (4.20-6.10)
[2016-11-10 06:02] LABS: ANION GAP 10.9 mmol/L (8-16); CALCIUM 8.8 mg/dL (8.5-10.1); CARBON DIOXIDE 30.3 mmol/L (21.0-32.0); CREATININE - SERUM 1.9 mg/dL (0.6-1.3); POTASSIUM - SERUM 4.2 mmol/L (3.5-5.1)
--- NOTE | 2016-11-10 06:26 | NUR ---
PEREZ CATH REMOVED ORDERED AND REPLACED A NEW PEREZ CATH. OBTAINED A STERILE URINE SAMPLE AND SENT TO LAB AAT THIS TIME. PT JAZIEL WELL. PEREZ CATH INSERTED WAS 16 FR 10 CC BULB. DRAINAGE TO BSD.
[2016-11-10 07:25] LABS: APPEARANCE HAZY (CLEAR); BACTERIA FEW /hpf (NONE SEEN); BILIRUBIN NEGATIVE (NEGATIVE); COLOR YELLOW (YELLOW); GLUCOSE NEGATIVE (NEGATIVE); HYALINE CAST OCC /lpf (NONE SEEN); KETONE NEGATIVE (NEGATIVE); LEUKOCYTE ESTERASE NEGATIVE (NEGATIVE); NITRITE NEGATIVE (NEGATIVE); PROTEIN 2+ mg/dL (NEGATIVE); RED CELLS - URINE 0-5 /hpf (0-5); SPECIFIC GRAVITY 1.015 (1.005-1.020); UROBILINOGEN NORMAL (NORMAL); WHITE CELLS - URINE 0-5 /hpf (0-5)
--- NOTE | 2016-11-10 07:58 | NUR ---
ASSESSMENT COMPLETED. AWAKE AND ALERT. TELEMERTY SHOWS SR AT 64. 02 AT 2 LM PER NC. IV OG 1/2NS AT 75 CC/HR. PEREZ CATH TO BEDSIDE GRAVITY BAG. PT IS A MED CODE JOSSELIN. STATES HE FEELS BETTER AFTER THE PAIN MED. SR UP WITH CALL LIGHT AND BED ALARM ON.
[2016-11-10 08:02] VITALS: BP 144/44
--- NOTE | 2016-11-10 09:43 | NUR ---
RESTING QUIETLY EYES CLOSED RESP UNLABORED NAD NOTED GRANDDAUGHTER AT BEDSIDE
--- NOTE | 2016-11-10 11:35 | NUR ---
BACK TO BED PER PT. NO NEEDS VOICED. SR UP WITH CALL LIGHT IN REACH
[2016-11-10 11:43] VITALS: BP 134/59
--- NOTE | 2016-11-10 13:14 | NUR ---
Nutrition follow-up: Diet: Regular mechanical soft with nectar thick liquids PO intake is very poor at this time due to confusion; pt refusing some meals, fluids Pt is staying up all night due to sundowners per nursing Labs reviewed +BM May need to consider starting nutrition support if pts po intake remains poor. RDN will order Ensure with meals. Following.
--- NOTE | 2016-11-10 14:32 | NUR ---
PT UP IN WHEELCHAIR AND ROAD AROUND IN [address]. FELICIA TO BED WITH SR UP AND CAD CALL LIGHT IN REACH. FAMILY AT BED SIDE
[2016-11-10 16:35] VITALS: BP 145/57
--- NOTE | 2016-11-10 17:32 | NUR ---
REPOSITIONED FOR COMFORT. SR UP WITH CALL LIGHT IN REACH.F GIANNA AT BEDSIDE
--- NOTE | 2016-11-10 19:00 | NUR ---
INITIAL ROUNDS MADE. PT LYING IN BED WITH FAMILY IN ROOM. PT CONFUSED AND AGITATED. OFFERED TO GIVE THE PRN ATIVAN, REFUSED. STATES "LAST TIME THEY GAVE IT TO HIM, IT MADE HIM WORSE". WILL GIVE THE OXYCODONE REQUESTED.
[2016-11-10 20:29] VITALS: BP 141/96
[2016-11-11 00:10] VITALS: BP 125/53
--- NOTE | 2016-11-11 03:31 | NUR ---
FRAME STRIPPER AT BEDSIDE FOR VS. NEEDS ADDRESSED AT THIS TIME. CALL LIGHT IN REACH. WILL CONT TO MONITOR.
[2016-11-11 05:28] VITALS: BP 132/61
--- NOTE | 2016-11-11 05:30 | NUR ---
LEFT ARM SWOLLEN, ENCOURAGED PT TO TURN TO RIGHT SIDE AND ELEVATE ARM ON PILLOW. IV NOT INFILTRATED, GOOD FLUSH AND BLOOD RETURN.
[2016-11-11 06:06] LABS: BASOPHILS 0.4 % (0-2); EOSINOPHILS 2.8 % (0-7); HEMATOCRIT 31.3 % (42.0-54.0); IMMATURE GRANULOCYTES 0.2 % (0-5); LYMPHOCYTES 19.1 % (15-50); MCH 30.8 pg (26.0-34.0); MCHC 31.9 g/dL (31.0-37.0); MCV 96.3 fL (80.0-100.0); MEAN PLATELET VOLUME 12.1 fL (7.4-10.4); MONOCYTES 11.1 % (2-11); NEUTROPHILS 66.4 % (40-80); PLATELET COUNT 314 10x3/uL (130-400); RBC 3.25 10x6/uL (4.20-6.10); RDW 14.5 % (11.5-14.5)
[2016-11-11 06:26] LABS: CALCIUM 9.1 mg/dL (8.5-10.1); CARBON DIOXIDE 28.5 mmol/L (21.0-32.0); CREATININE - SERUM 1.6 mg/dL (0.6-1.3)
[2016-11-11 06:28] LABS: POTASSIUM - SERUM 3.5 mmol/L (3.5-5.1)
--- NOTE | 2016-11-11 07:25 | NUR ---
ASSESSMENT DONE. DENIES NEEDS
[2016-11-11 07:53] VITALS: BP 150/65
--- NOTE | 2016-11-11 09:52 | NUR ---
IV PATENT. RESTS WITH EYES CLOSED. DAUGHTER AT BS. WILL MONITOR NEEDS.
[2016-11-11 11:47] VITALS: BP 155/56
--- NOTE | 2016-11-11 14:38 | NUR ---
OT NOTE: PT PERFORMED VERY WELL TODAY. PRACTICED BED MOB WITH MOD/MAX ASSIST; TRANSFERS WITH MAX ASSIST; POSITIONED PT IN CHAIR AND BEGAN NOTICING SOME GOOD TONE IN L UE. PT WAS ABLE TO FIELD [employer]PER[employer] MAN MY HAND ON COMMAND , AND RELEASE FOR MULTIPLE TRIALS. ALSO EXHIBITING ELBOW FLEX AND EXT
[2016-11-11 15:59] VITALS: BP 134/39
--- NOTE | 2016-11-11 17:20 | NUR ---
Patient Name: LEXI ROB Encounter No: [id number] : 1935 Primary Insurance: [employer] CHOICE PPO MCR ADVANT Anticipated DC Date: 11-12-2016 Planned Disposition: Long-Term Facility External Planned Provider: [facility], MEDICARE REHAB BED DCP follow-up note: CM RECEIVED CALL FROM ORMEL OF [facility], , WHO REPORTED THAT THEY CAN ACCEPT PT FOR REHAB, INSURANCE AUTHORIZATION HAS BEEN RECEIVED. AUTHORIZATION GOOD FOR TWO DAYS; IF PT STAYS IN HOSPITAL PAST AUTHORIZATION, WILL REQUIRE NEW AUTH FROM INSURANCE. FOR DISCHARGE TO REHAB, FAX DISCHARGE INFORMATION TO [facility] AT [phone], CALL NURSE REPORT TO [facility] AT [phone]. [facility] TO ARRANGE VAN TRANSPORTATION. Jonnie Gonzalez, CASE MANAGEMENT
--- NOTE | 2016-11-11 18:05 | NUR ---
WITHOUT CHANGES OR DISTRESS NOTED AT THIS TIME, SON AT SIDE.
--- NOTE | 2016-11-11 19:43 | NUR ---
AWAKE AND ALERT. NO APPARENT DISTRESS. FAMILY AT BEDSIDE.
[2016-11-11 20:00] VITALS: BP 170/47
--- NOTE | 2016-11-11 22:52 | NUR ---
PM MEDS GIVEN. PT HAD NO DIFFICULTY WITH SWALLOWING. MED FOR PAIN REQUESTED BY PT. REPOSITION IN BED.
[2016-11-12] VITALS: BP 159/50
[2016-11-12 04:00] VITALS: BP 149/52
--- NOTE | 2016-11-12 05:06 | NUR ---
HAS BEEN RESTLESS THROUGHOUT SHIFT. DID SLEEP AT SOME INTERVALS. FAMILY AT BEDSIDE.
[2016-11-12 05:44] LABS: BASOPHILS 0.5 % (0-2); EOSINOPHILS 2.1 % (0-7); HEMATOCRIT 28.6 % (42.0-54.0); HEMOGLOBIN 9.4 g/dL (13.5-17.5); IMMATURE GRANULOCYTES 0.2 % (0-5); LYMPHOCYTES 21.2 % (15-50); MCH 31.3 pg (26.0-34.0); MCHC 32.9 g/dL (31.0-37.0); MCV 95.3 fL (80.0-100.0); MEAN PLATELET VOLUME 11.9 fL (7.4-10.4); MONOCYTES 11.7 % (2-11); NEUTROPHILS 64.3 % (40-80); PLATELET COUNT 297 10x3/uL (130-400); RDW 14.8 % (11.5-14.5)
[2016-11-12 05:56] LABS: WBC 13.2 10x3/uL (4.8-10.8)
[2016-11-12 06:09] LABS: ANION GAP 10.8 mmol/L (8-16); CALCIUM 9.2 mg/dL (8.5-10.1); CARBON DIOXIDE 28.7 mmol/L (21.0-32.0); CREATININE - SERUM 1.5 mg/dL (0.6-1.3); POTASSIUM - SERUM 3.5 mmol/L (3.5-5.1)
--- NOTE | 2016-11-12 08:03 | NUR ---
ASSESSMENT DONE. AT SIDE.
[2016-11-12 08:45] VITALS: BP 148/56
--- NOTE | 2016-11-12 09:04 | NUR ---
IV PATENT. AT BS. CALL LIGHT IN REACH. WILL MONITOR.
[2016-11-12 11:57] VITALS: BP 109/53
--- NOTE | 2016-11-12 13:36 | NUR ---
Nutrition follow-up: Diet: Mechanical soft with nectar thick liquids PO intake has been poor the last few days per due to sundowners. states he is drinking some Ensure during the day. Pt is asleep at this time and has not eaten today. Marinol started Wt: 167# states she believes he will eat better when he starts sleeping at night and not during the day. Will provide food choices and honor food preferences. RDN following.
[2016-11-12 16:39] VITALS: BP 119/50
--- NOTE | 2016-11-12 16:54 | NUR ---
Patient Name: LEXI ROB Encounter No: [id number] : 1935 Primary Insurance: [employer] CHOICE PPO MCR ADVANT Anticipated DC Date: 11-13-2016 Planned Disposition: Long Term Facility External Planned Provider: [facility], MEDICARE REHAB BED DCP follow-up note: CM SPOKE TO MANUFACTURING BAKER COLLIN, PLANNED DC TOMORROW TO REHAB. CM SPOKE TO PT AND SPOUSE IN ROOM WHO ARE IN AGREEMENT WITH DISCHARGE TO [facility] FOR REHAB. IMPORTANT MESSAGE FROM MEDICARE PROVIDED AND EXPLAINED. CM CALLED ROMEL OF [facility], , WHO REPORTED THAT INSURANCE AUTHORIZATION HAS LAPSED TODAY AND SHE WILL RESUBMIT AUTH SOON POSSIBLE WHEN UPDATE IS RECEIVED. PT REQUIRES NEW AUTH FROM INSURANCE. CM FAXED UPDATE FOR INSURANCE SUBMISSION TO [facility] AT [phone]. CM WAITING INSURANCE AUTHORIZATION FOR REHAB SERVICES AT [facility]. Jonnie Gonzalez, CASE MANAGEMENT
--- NOTE | 2016-11-12 17:03 | NUR ---
OT NOTE: PT COMPLETED LUE AAROM TO FACILITATE AROM. PT COMPLETED RUE AROM EXS FOR INCREASED AX JAZIEL. PT COMPLETED LUE POSITIONING TO DECREASE RISK OF SKIN BREAKDOWN. PT COMPLETED SIMPLE ADL WITH RUE WITH SET UP. THANK YOU, TUAN PEREZ
--- NOTE | 2016-11-12 19:44 | NUR ---
RESUMED CARE OF PT, LYING IN BED RESPIRATIONS EVEN AND UNLABORED ON 2LPM VIA NC. 64 PACED ON TELEMETRY. LEFT WRIST INFUSING 1/2NS @100. PEREZ TO GRAVITY. NO NEEDS VOICED AT THIS TIME, CALL LIGHT IN REACH. WILL CONTINUE TO MONITOR. SEE NURSE ASSESSMENT.
[2016-11-12 20:16] VITALS: BP 139/65
[2016-11-13 00:23] VITALS: BP 125/48
--- NOTE | 2016-11-13 01:12 | NUR ---
LYING IN BED WITH EYES CLOSED, CALL LIGHT IN REACH. WILL CONTINUE TO MONITOR. 60 PACED ON TELEMETRY
[2016-11-13 04:13] VITALS: BP 121/49
[2016-11-13 04:54] LABS: BASOPHILS 0.3 % (0-2); EOSINOPHILS 3.8 % (0-7); HEMATOCRIT 30.3 % (42.0-54.0); HEMOGLOBIN 9.6 g/dL (13.5-17.5); IMMATURE GRANULOCYTES 0.2 % (0-5); LYMPHOCYTES 23.2 % (15-50); MCH 30.6 pg (26.0-34.0); MCHC 31.7 g/dL (31.0-37.0); MCV 96.5 fL (80.0-100.0); MEAN PLATELET VOLUME 11.5 fL (7.4-10.4); MONOCYTES 13.4 % (2-11); NEUTROPHILS 59.1 % (40-80); PLATELET COUNT 289 10x3/uL (130-400); RBC 3.14 10x6/uL (4.20-6.10); RDW 14.8 % (11.5-14.5); WBC 12.8 10x3/uL (4.8-10.8)
[2016-11-13 05:10] LABS: ANION GAP 12.5 mmol/L (8-16); CALCIUM 8.8 mg/dL (8.5-10.1); CREATININE - SERUM 1.5 mg/dL (0.6-1.3); POTASSIUM - SERUM 3.5 mmol/L (3.5-5.1)
--- NOTE | 2016-11-13 07:06 | NUR ---
NO CHANGES FROM PREVIOUS ASSESSMENT, CALL LIGHT IN REACH.
[2016-11-13 08:08] VITALS: BP 145/40
[2016-11-13 11:24] VITALS: BP 127/50
[2016-11-13] MEDS ORDERED: ALDACTONE25 MG PO (13:46)
[2016-11-13] MEDS ORDERED: CORDARONE200 MG PO (13:46)
[2016-11-13] MEDS ORDERED: CATAPRES0.2 MG PO (13:46)
[2016-11-13] MEDS ORDERED: SEROQUEL25 MG PO (13:47)
[2016-11-13] MEDS ORDERED: MIRALAX17 GM PO (13:47)
[2016-11-13] MEDS ORDERED: LINZESS145 MCG PO (13:52)
[2016-11-13] MEDS ORDERED: MARINOL2.5 MG PO (13:52)
[2016-11-13] MEDS ORDERED: FERROUS SULFAT325 MG PO (14:20)
--- NOTE | 2016-11-13 14:54 | NUR ---
THIS SHIFT, PT HAS BEEN AWAKE & ALERT . WITH PT. NO DISTRESS TAKING MEDS WITH REGULAR WATER. MONITOR SHOWS 61 PACED.
--- NOTE | 2016-11-13 14:56 | NUR ---
ORDERS FOR DISCHARGE TO [facility]. ELENA MAURICE .
--- NOTE | 2016-11-13 15:06 | NUR ---
IV DC. PT DRESSED. REPORT CALLED TO TRELL ADKINS RN AT [place].
--- NOTE | 2016-11-13 15:11 | NUR ---
Patient Name: LEXI ROB Encounter No: [id number] : 1935 Primary Insurance: [employer] CHOICE PPO MCR ADVANT Anticipated DC Date: 11-13-2016 Planned Disposition: [facility] Facility External Planned Provider: [facility], MEDICARE REHAB BED DCP follow-up note: CM RECEIVED CALL FROM ROMEL OF [facility], WHO HAS RECEIVED INSURANCE AUTHORIZATION AND WILL ACCEPT PT TODAY. CM NOTIFIED PENNY LEMA. CM NOTIFIED PT AND SPOUSE WHO ARE IN AGREEMENT WITH DISCHARGE PLAN TO REHAB AT [facility] TODAY. CM FAXED DISCHARGE INFORMATION TO [facility] AT [phone]. CALL NURSE REPORT TO [facility] AT [phone]. [facility] TO ARRANGE [facility] TRANSPORTATION. Jonnie Gonzalez, CASE MANAGEMENT
--- NOTE | 2016-11-13 16:20 | NUR ---
RENU BROOKS. P.T. ASSISTED WITH MOVING PT TO WC. TO VAN VIA .
== END 2016-11-13 16:22 | DRG 242 ==
LOC: D.MS 16:21 → D.M2 16:21 → D.CVICU 16:21 → D.M2 11-02 07:01
PROVIDERS: Family Medicine; Family Medicine Adult Medicine; Internal Medicine Cardiovascular Disease; Internal Medicine Nephrology; ADMIT Emergency Medicine
PROC: 02H63JZ Insertion of Pacemaker Lead into Right Atrium, Percutaneous Approach (ICD-10-PCS; 2016-10-30)
PROC: 02HK3JZ Insertion of Pacemaker Lead into Right Ventricle, Percutaneous Approach (ICD-10-PCS; 2016-10-30)
PROC: 0JH606Z Insertion of Pacemaker, Dual Chamber into Chest Subcutaneous Tissue and Fascia, Open Approach (ICD-10-PCS; principal; 2016-10-30 16:30)
DX: I49.5 Sick sinus syndrome (principal); I61.9 Nontraumatic intracerebral hemorrhage, unspecified; N17.9 Acute kidney failure, unspecified; G81.94 Hemiplegia, unspecified affecting left nondominant side; J98.11 Atelectasis; F05 Delirium due to known physiological condition; K56.7 Ileus, unspecified; I69.192 Facial weakness following nontraumatic intracerebral hemorrhage; I16.0 Hypertensive urgency; I12.9 Hypertensive chronic kidney disease with stage 1 through stage 4 chronic kidney disease, or unspecified chronic kidney disease; N18.3 Chronic kidney disease, stage 3 (moderate); I48.91 Unspecified atrial fibrillation; I35.0 Nonrheumatic aortic (valve) stenosis; F41.9 Anxiety disorder, unspecified; K59.00 Constipation, unspecified; D50.9 Iron deficiency anemia, unspecified; E87.6 Hypokalemia

== ENCOUNTER 2017-01-16 11:34 | Emergency (ER) | payer MEDICARE ==
[2016-10-29 14:49] VITALS: BMI 30.8
[~2017-01-16 11:34] MED LIST changes: +ALDACTONE25 MG PO; +CATAPRES0.2 MG PO; +FERROUS SULFAT325 MG PO; +LINZESS145 MCG PO; +MARINOL2.5 MG PO; +MIRALAX17 GM PO; +SEROQUEL25 MG PO
[2017-01-16 12:06] LABS: BASOPHILS 0.4 % (0-2); EOSINOPHILS 3.5 % (0-7); HEMATOCRIT 35.3 % (42.0-54.0); HEMOGLOBIN 11.2 g/dL (13.5-17.5); IMMATURE GRANULOCYTES 0.2 % (0-5); LYMPHOCYTES 14.6 % (15-50); MCH 31.4 pg (26.0-34.0); MCHC 31.7 g/dL (31.0-37.0); MCV 98.9 fL (80.0-100.0); MEAN PLATELET VOLUME 11.4 fL (7.4-10.4); MONOCYTES 9.2 % (2-11); NEUTROPHILS 72.1 % (40-80); PLATELET COUNT 280 10x3/uL (130-400); RBC 3.57 10x6/uL (4.20-6.10); RDW 13.6 % (11.5-14.5); WBC 12.8 10x3/uL (4.8-10.8)
[2017-01-16 12:23] LABS: ALBUMIN 3.2 g/dL (3.4-5.0); ANION GAP 13.4 mmol/L (8-16); BILIRUBIN - TOTAL 0.29 mg/dL (0.2-1.3); CALCIUM 9.3 mg/dL (8.5-10.1); CARBON DIOXIDE 24.1 mmol/L (21.0-32.0); CREATININE - SERUM 2.2 mg/dL (0.6-1.3); POTASSIUM - SERUM 4.5 mmol/L (3.5-5.1); PROTEIN - SERUM 7.1 g/dL (6.4-8.2)
== END 2017-01-16 14:45 | disposition home or self-care (01) ==
LOC: D.ER 11:34
PROVIDERS: Emergency Medicine
DX: R55 Syncope and collapse (principal); E11.9 Type 2 diabetes mellitus without complications; Z79.4 Long term (current) use of insulin; I12.9 Hypertensive chronic kidney disease with stage 1 through stage 4 chronic kidney disease, or unspecified chronic kidney disease; N18.9 Chronic kidney disease, unspecified; I61.9 Nontraumatic intracerebral hemorrhage, unspecified; I45.10 Unspecified right bundle-branch block

== ENCOUNTER → 2017-01-19 12:36 | Outpatient (CLI) | payer MEDICARE ==
[2016-10-29 14:49] VITALS: BMI 30.8
[2017-01-19 14:20] LABS: AMORPHOUS SEDIMENT <1+ /lpf (NONE SEEN); APPEARANCE TURBID (CLEAR); BACTERIA MANY /hpf (NONE SEEN); BILIRUBIN NEGATIVE (NEGATIVE); COLOR YELLOW (YELLOW); EPITHELIAL CELLS 0-5 /hpf (0-5); GLUCOSE NEGATIVE (NEGATIVE); KETONE NEGATIVE (NEGATIVE); LEUKOCYTE ESTERASE 2+ (NEGATIVE); MUCUS <1+ /lpf (NONE SEEN); NITRITE POSITIVE (NEGATIVE); PROTEIN 1+ mg/dL (NEGATIVE); SPECIFIC GRAVITY 1.005 (1.005-1.020); UROBILINOGEN NORMAL (NORMAL); WHITE CELLS - URINE 25-50 /hpf (0-5)
== END | disposition home or self-care (01) ==
LOC: D.LABREF 12:36
PROVIDERS: Family Medicine
DX: N39.0 Urinary tract infection, site not specified (principal); E11.9 Type 2 diabetes mellitus without complications

== ENCOUNTER 2017-01-22 12:35 | Inpatient (IN) | payer MEDICARE ==
[~2017-01-22] VITALS: Ht 170.2 cm; Wt 71.7 kg
[2017-01-22 13:43] LABS: BASOPHILS 0.2 % (0-2); EOSINOPHILS 2.7 % (0-7); HEMATOCRIT 36.8 % (42.0-54.0); HEMOGLOBIN 12.1 g/dL (13.5-17.5); IMMATURE GRANULOCYTES 0.2 % (0-5); LYMPHOCYTES 17.6 % (15-50); MCH 31.6 pg (26.0-34.0); MCHC 32.9 g/dL (31.0-37.0); MCV 96.1 fL (80.0-100.0); MEAN PLATELET VOLUME 11.7 fL (7.4-10.4); MONOCYTES 8.1 % (2-11); NEUTROPHILS 71.2 % (40-80); PLATELET COUNT 314 10x3/uL (130-400); RBC 3.83 10x6/uL (4.20-6.10); RDW 13.7 % (11.5-14.5); WBC 13.2 10x3/uL (4.8-10.8)
[2017-01-22 13:52] LABS: ALBUMIN 3.4 g/dL (3.4-5.0); ANION GAP 16.3 mmol/L (8-16); BILIRUBIN - TOTAL 0.36 mg/dL (0.2-1.3); CALCIUM 9.2 mg/dL (8.5-10.1); CARBON DIOXIDE 21.8 mmol/L (21.0-32.0); CREATININE - SERUM 2.1 mg/dL (0.6-1.3); POTASSIUM - SERUM 4.1 mmol/L (3.5-5.1)
[2017-01-22 16:18] LABS: APPEARANCE CLEAR (CLEAR); COLOR YELLOW (YELLOW); SPECIFIC GRAVITY 1.015 (1.005-1.020)
[2017-01-22 16:23] LABS: BILIRUBIN NEGATIVE (NEGATIVE); GLUCOSE NEGATIVE (NEGATIVE); KETONE NEGATIVE (NEGATIVE); LEUKOCYTE ESTERASE NEGATIVE (NEGATIVE); NITRITE NEGATIVE (NEGATIVE); PROTEIN TRACE mg/dL (NEGATIVE); UROBILINOGEN NORMAL (NORMAL)
[2017-01-22 20:00] VITALS: BP 109/60
--- NOTE | 2017-01-22 20:00 | NUR ---
SLEEPING, AROUSES TO VOICE, FAMILY AT BEDSIDE, DENIES NEEDS, BED LOWEST POSITION CALL LIGHT IN REACH, WILL CONTINUE TO MONITOR
[2017-01-22] MEDS ORDERED: LINZESS290 MCG PO (20:29)
[2017-01-22] MEDS ORDERED: GABAPENTIN100 MG PO (20:31)
[2017-01-22] MEDS ORDERED: HYDRALAZINE HCL50 MG PO (20:33)
[2017-01-22] MEDS ORDERED: ISOSORBIDE DINI30 MG PO (20:34)
[2017-01-22] MEDS ORDERED: REMERON30 MG PO (20:37)
[2017-01-22] MEDS ORDERED: SEROQUEL25 MG PO (20:38)
[2017-01-22] MEDS ORDERED: MEGACE 20 MG TA20 MG PO (20:40)
[2017-01-22] MEDS ORDERED: ACETAMINOPHEN500 M1 PO (20:42)
[2017-01-22] MEDS ORDERED: NORVASC10 MG PO (20:43)
[2017-01-22] MEDS ORDERED: ULTRAM50 MG PO (20:44)
[2017-01-22] MEDS ORDERED: AUGMENTIN 875-11 TAB PO (20:45)
[2017-01-23] VITALS (7 sets, daily range): BP systolic 102–184; BP diastolic 41–69; Ht 170.2 cm; Wt 71.7 kg
--- NOTE | 2017-01-23 02:20 | NUR ---
SLEEPING, BREATHING EVEN UNLABORED, WILL CONTINUE TO MONITOR
--- NOTE | 2017-01-23 07:30 | NUR ---
REPORT RECEIVED FROM PILE DRIVING TECHNICIAN NURSE. CALL LIGHT IN REACH.
--- NOTE | 2017-01-23 09:20 | NUR ---
ASSESSMENT COMPLETED. CALL LIGHT IN REACH. BED ALARM IS ON. WILL CONTINUE WITH PLEASE OF CARE.
--- NOTE | 2017-01-23 11:10 | NUR ---
SCDs APPLIED TO BLE PER SENIOR USER EXPERIENCE ARCHITECT.
--- NOTE | 2017-01-23 13:34 | NUR ---
MEDS ADMINISTERED PER MD ORDER. FAMILY AT BEDSIDE. CALL LIGHT IN REACH.
--- NOTE | 2017-01-23 15:02 | NUR ---
LARGE BM NOTED AFTER SUPPOSITORIES.
--- NOTE | 2017-01-23 17:14 | NUR ---
BLOOD SUGAR IS 122. NO COVERAGE REQUIRED.
--- NOTE | 2017-01-23 17:30 | NUR ---
RESTING QUIETLY IN BED. AT BEDSIDE. NO C/O AT THIS TIME. DENIES NEEDS. ONLY COMPLAINT IS HES HUNGRY.
--- NOTE | 2017-01-23 18:50 | NUR ---
NO CHANGES IN INITIAL ASSESSMENT. CALL LIGHT IN REACH. SCDs TO BLE. CALL LIGHT IN REACH. WILL CONTINUE WITH PLAN OF CARE.
--- NOTE | 2017-01-23 20:00 | NUR ---
ALERT AND ORIENTED, BED LOWEST POSITION, DENIES NEEDS, CALL LIGHT IN REACH, WILL CONTINUE TO MONITOR
--- NOTE | 2017-01-23 21:15 | NUR ---
PAIN MEDS GIVEN FOR PAIN LEVEL 5, CALL LIGHT IN REACH, WILL CONTINUE TO MONITOR
[2017-01-24] VITALS: BP 114/62
--- NOTE | 2017-01-24 02:18 | NUR ---
RESTING WITH EYES CLOSED. RR EVEN U/L. 02 AT 3L/NC. NO S/S OF PAIN OR DISCOMFORT. SCD'S ARE ON. FAMILY MEMBER PRESENT IN ROOM.
[2017-01-24 04:00] VITALS: BP 117/70
[2017-01-24 05:00] LABS: BASOPHILS 0.3 % (0-2); EOSINOPHILS 3.9 % (0-7); HEMATOCRIT 29.2 % (42.0-54.0); HEMOGLOBIN 9.4 g/dL (13.5-17.5); IMMATURE GRANULOCYTES 0.3 % (0-5); LYMPHOCYTES 24.7 % (15-50); MCH 31.2 pg (26.0-34.0); MCHC 32.2 g/dL (31.0-37.0); MONOCYTES 14.9 % (2-11); NEUTROPHILS 55.9 % (40-80); PLATELET COUNT 261 10x3/uL (130-400); RBC 3.01 10x6/uL (4.20-6.10); RDW 13.7 % (11.5-14.5); WBC 11.9 10x3/uL (4.8-10.8)
[2017-01-24 05:14] LABS: ANION GAP 10.4 mmol/L (8-16); CALCIUM 8.7 mg/dL (8.5-10.1); CARBON DIOXIDE 26.1 mmol/L (21.0-32.0); POTASSIUM - SERUM 3.5 mmol/L (3.5-5.1)
[2017-01-24 05:22] LABS: CREATININE - SERUM 1.4 mg/dL (0.6-1.3)
--- NOTE | 2017-01-24 07:15 | NUR ---
REPORT RECEIVED FROM KEYING MACHINE OPERATOR NURSE.
[2017-01-24 09:00] VITALS: BP 170/65
--- NOTE | 2017-01-24 09:20 | NUR ---
ASSESSMENT COMPLETED. SCDs TO BLE. BED ALARM ON. CALL LIGHT IN REACH. WILL CONTINUE WITH PLAN OF CARE.
--- NOTE | 2017-01-24 10:15 | NUR ---
ASSISTED WITH BED HUYNH. APPEARS SOMEWHAT CONFUSED. DENIES NEEDS. NO C/O PAIN AT THIS TIME. WILL MONITOR.
--- NOTE | 2017-01-24 10:33 | NUR ---
IV RESITED TO RIGHT FOREARM WITH 22 GA X1 STICK. AM MEDS ADMINISTERED. DILAUDID IVP. IN ROOM. CALL LIGHT IN REACH.
--- NOTE | 2017-01-24 10:45 | NUR ---
TYLENOL PO PER TEMP OF 100.3
--- NOTE | 2017-01-24 12:28 | NUR ---
FSBS 138. BP IS NOW 130/51. WILL CONTINUE TO MONITOR.
--- NOTE | 2017-01-24 14:20 | NUR ---
RESTING WITH EYES CLOSED. RESP EVEN AND UNLABORED. CALL LIGHT IN REACH.
--- NOTE | 2017-01-24 15:33 | NUR ---
GABAPENTIN PO AND ZOSYN IVPB. CALL LIGHT IN REACH.
[2017-01-24 15:55] VITALS: BP 173/60
--- NOTE | 2017-01-24 17:21 | NUR ---
FSBS 129 SO NO COVERAGE REQUIRED.
--- NOTE | 2017-01-24 18:57 | NUR ---
NO CHANGES IN INITIAL ASSESSMENT. SCDs OFF PER PATIENT. AT BEDSIDE. CALL LIGHT IN REACH. WILL COTNINUE WITH PLAN OF CARE.
[2017-01-24 20:00] VITALS: BP 147/68
--- NOTE | 2017-01-24 20:00 | NUR ---
ASSESSMENT PER FLOWSHEET. IV PATENT RT FOREARM OF D5LR INFUSING AT 100CC'S/HR. SITE CLEAR. O2 ON 2L/M PER NC HOB UP 35 DEGREES. NO DISTRESS. DAUGHTER AT BEDSIDE. PEREZ TO BEDSIDE DRAINAGE WITH YELLOW URINE. SR UP X2 BED ALARM BED ON SR UP X2 PT WITH PERIODS OF CONFUSION.
--- NOTE | 2017-01-24 22:08 | NUR ---
RUBBING HEAD IF IN PAIN. MEDS GIVEN PER AUG. PWAV=564 NO COVERAGE NEEDED. DILAUDID 0.5MG IVP GIVEN FOR PAIN CONTROL.
--- NOTE | 2017-01-25 | NUR ---
EYES CLOSED RESPIRATIONS WITH EASE AND UNLABORED.
[2017-01-25 04:00] VITALS: BP 162/63
[2017-01-25 06:48] LABS: BASOPHILS 0.2 % (0-2); EOSINOPHILS 4.7 % (0-7); HEMATOCRIT 33.2 % (42.0-54.0); HEMOGLOBIN 10.8 g/dL (13.5-17.5); IMMATURE GRANULOCYTES 0.2 % (0-5); LYMPHOCYTES 21.3 % (15-50); MCH 31.3 pg (26.0-34.0); MCHC 32.5 g/dL (31.0-37.0); MCV 96.2 fL (80.0-100.0); MEAN PLATELET VOLUME 11.3 fL (7.4-10.4); MONOCYTES 12.1 % (2-11); NEUTROPHILS 61.5 % (40-80); PLATELET COUNT 295 10x3/uL (130-400); RBC 3.45 10x6/uL (4.20-6.10); RDW 13.3 % (11.5-14.5)
[2017-01-25 07:05] LABS: ANION GAP 13.1 mmol/L (8-16); CALCIUM 8.9 mg/dL (8.5-10.1); CARBON DIOXIDE 26.1 mmol/L (21.0-32.0); CREATININE - SERUM 1.4 mg/dL (0.6-1.3); POTASSIUM - SERUM 3.2 mmol/L (3.5-5.1)
[2017-01-25 08:12] VITALS: BP 172/45
--- NOTE | 2017-01-25 09:26 | NUR ---
SCHEDULED MEDICATIONS ADMINISTERED AT THIS TIME. FAMILY AT BEDSIDE. ASSESSMENT PERFORMED PER FLOWSHEET. PEREZ PATENT AND DRAINING TO GRAVITY. DENIES PAIN AT THIS TIME. SCD'S AND BED ALARM ON. IV TO RIGHT FOREARM PATENT. CALL LIGHT IN REACH, WILL CONTINUE WITH PLAN OF CARE.
[2017-01-25 09:30] VITALS: BP 154/62
--- NOTE | 2017-01-25 10:30 | NUR ---
STOOL SAMPLE OBTAINED FOR ORDERED TESTS.
[2017-01-25 12:06] VITALS: BP 142/52
--- NOTE | 2017-01-25 13:36 | NUR ---
NUTRITION MONITORING & EVAL CHART REVIEWED, PT VISIT. TOLERATING CLEARS, WOULD LIKE FULL LIQUIDS/BOOST. DIET ORDER CHANGED TO REFLECT PREFERENCES. RD FOLLOWING
--- NOTE | 2017-01-25 16:41 | NUR ---
PEREZ CARE PROVIDED AT THIS TIME WITH SURESTEP PEREZ CARE WIPES. IV TUBING CHANGED PER PROTOCOL. AT BEDSIDE. WILL CONTINUE WITH PLAN OF CARE.
[2017-01-25 16:43] VITALS: BP 124/63
[2017-01-25 20:00] VITALS: BP 111/68
--- NOTE | 2017-01-25 20:00 | NUR ---
ASSESSMENT PER FLOWSHEET. DRESSING TO LEFT ARM C/D/I. LEFT KNEE SWOLLEN AND ELEVATED ON PILLOW. IV PATENT RT ARM OF D5LR INFUSING AT 100CC'S/HR.PEREZ TO BEDSIDE DRAINAGE WITH YELLOW URINE. DAUGHTER AT BEDSIDE. BED ALARM ON. O2 ON 3L/M PER NC LOWER LUG BASES DEMINISHED. NO DISTRESS. SR UP X2 CALL LIGHT WITHIN REACH. 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 SCD'S ON.
--- NOTE | 2017-01-25 21:30 | NUR ---
MEDS GIVEN MT AUG. IQGJ=983. NO COVERAGE NEEDED C/O ED LEFT KNEE AREA. DILAUDID 0.5MG IVP GIVEN FOR PAIN CONTROL. DRESSING CHANGED DONE TO LEFT ARM ABRASION.
--- NOTE | 2017-01-26 | NUR ---
EYS CLOSED RESPIRATIONS WITH EASE AND UNLABORED.
--- NOTE | 2017-01-26 02:30 | NUR ---
RESTING QUIETLY MEDS OF AUG.
[2017-01-26 03:38] VITALS: BP 129/75
--- NOTE | 2017-01-26 04:00 | NUR ---
RESTING QUIETLY BODY IN GOOD ALIGNMENT.
[2017-01-26 04:18] LABS: BASOPHILS 0.2 % (0-2); HEMATOCRIT 31.6 % (42.0-54.0); HEMOGLOBIN 10.4 g/dL (13.5-17.5); IMMATURE GRANULOCYTES 0.2 % (0-5); LYMPHOCYTES 29.6 % (15-50); MCH 31.3 pg (26.0-34.0); MCHC 32.9 g/dL (31.0-37.0); MCV 95.2 fL (80.0-100.0); MEAN PLATELET VOLUME 11.2 fL (7.4-10.4); MONOCYTES 11.1 % (2-11); NEUTROPHILS 51.9 % (40-80); PLATELET COUNT 300 10x3/uL (130-400); RBC 3.32 10x6/uL (4.20-6.10); WBC 10.8 10x3/uL (4.8-10.8)
[2017-01-26 04:32] LABS: ALBUMIN 2.4 g/dL (3.4-5.0); ANION GAP 10.9 mmol/L (8-16); BILIRUBIN - TOTAL 0.38 mg/dL (0.2-1.3); CALCIUM 8.6 mg/dL (8.5-10.1); CARBON DIOXIDE 29.1 mmol/L (21.0-32.0); CREATININE - SERUM 1.3 mg/dL (0.6-1.3); PROTEIN - SERUM 6.6 g/dL (6.4-8.2)
--- NOTE | 2017-01-26 07:39 | NUR ---
SCHEDULED ANTIBIOTIC ADMINISTERED AT THIS TIME. AT BEDSIDE. PEREZ PATENT AND DRAINING TO GRAVITY. BED ALARM AND SCD'S ON. CALL LIGHT IN REACH, WILL CONTINUE WITH PLAN OF CARE.
--- NOTE | 2017-01-26 07:57 | NUR ---
Patient Name: LEXI ROB Admission Status: ER Accout number: [id number] Admission Date: 01-23-2017 : 1935 Admission Diagnosis: Attending: PINA Current LOS: 3 Anticipated DC Date: 02-01-2017 Planned Disposition: Home with Home Health Primary Insurance: [employer] CHOICE PPO MCR ADVANT Discharge Planning Comments: CM MET WITH PATIENTS (ULISS[facility]) REGARDING D/C NEEDS AND PLANS/PATIENT SLEEPING. STATED SHE WILL DRIVE PATIENT HOME AT DISCHARGE AND THEY HAVE A RAMP TO ENTER HOME AND NO STAIRS INSIDE. PATIENT NEEDS HELP BATHING, DRESSING, MED MGT., AND HAS A SHOWER CHAIR, WHEELCHAIR, WALKER, OXYGEN, PORT O2, NEBULIZER AND GLUCOMETER AT HOME. STATED THEY CHECK HIS SUGAR 3X A DAY. PATIENTS OXYGEN IS SUPPLIED BY [employer]. PATIENT IS CURRENT WITH [facility]. CM WILL CONTINUE TO FOLLOW PATIENT WITH D/C NEEDS AND PLANS. PCP DR. LOCK [phone] [facility] () [phone] Wharf Tender: Daniella Mccormick How many steps to enter\exit or inside your home? RAMP 0 * PCP DR. LOCK 0 * Pharmacy [facility] * Preadmission Environment Home with Family 0 * ADLs Total Dependent 0 * Equipment CPAP Glucometer Nebulizer Oxygen Shower Chair Walker Wheelchair 0 * Other Equipment [employer] SUPPLIES OXYGEN FOR PATIENT ALSO HAS PORTABLE O2 0 * List name and contact numbers for known caregivers / representatives who currently or will assist patient after discharge: ULISSES () [phone] 0 * Community resources currently utilized Home Health 0 * Please name any agencies selected above. [facility] 0 * Additional services required to return to the preadmission environment? Yes 0 * Can the patient safely return to the preadmission environment? Yes 0 * Has this patient been hospitalized within the prior 30 days at any hospital? No 0 Grand Total: 0
[2017-01-26 08:22] VITALS: BP 190/62
--- NOTE | 2017-01-26 11:44 | NUR ---
Wound care consult: No chronic wounds noted. Generalized bruising and abrasions to left arm. Ordered air overlay mattress as preventive measure d/t his poor skin turger and need for assistance getting out of bed, turning and repositioning. Wound care will monitor as needed.
[2017-01-26 12:02] VITALS: BP 126/72
--- NOTE | 2017-01-26 12:10 | NUR ---
IV TO RIGHT FOREARM TENDER AND BEGINNING TO SWELL. IV D/C WITH CATH TIP INTACT. 22G IV SITED TO PT'S LEFT WRIST X1 ATTEMPT. ICE PACK APPLIED TO RIGHT FOREARM
--- NOTE | 2017-01-26 13:10 | NUR ---
IV DISCONECTED SO THAT PATIENT CAN GO TO CT SCAN VIA BED AT THIS TIME.
--- NOTE | 2017-01-26 14:35 | NUR ---
AIR OVERLAY APPLIED TO BED AT THIS TIME.
[2017-01-26 16:26] VITALS: BP 181/70
--- NOTE | 2017-01-26 17:21 | NUR ---
OT NOTE: PT COMPLETED SIMPLE ADL WITH SET UP. THANK YOU, GEETHA PEREZ/Crystal
--- NOTE | 2017-01-26 19:17 | NUR ---
PATIENT IS AWAKE, ALERT AND ORIENTED X'S 4. RESPIRATIONS ARE EVEN AND UNLABORED. PATIENT IS SMILING, VERY PLEASENT. SON AT BEDSIDE. BOTH DENY NEEDS AT THIS TIME. PATIENT DENIES NEEDS.
[2017-01-26 20:00] VITALS: BP 170/78
[2017-01-26 20:11] VITALS: BP 170/78
[2017-01-27] VITALS: BP 175/59
--- NOTE | 2017-01-27 01:58 | NUR ---
PEREZ CARE COMPLETED USING THE PEREZ CARE WIPES.
[2017-01-27 05:02] LABS: BASOPHILS 0.4 % (0-2); EOSINOPHILS 6.6 % (0-7); HEMATOCRIT 29.2 % (42.0-54.0); HEMOGLOBIN 9.6 g/dL (13.5-17.5); IMMATURE GRANULOCYTES 0.4 % (0-5); MCH 31.2 pg (26.0-34.0); MCHC 32.9 g/dL (31.0-37.0); MCV 94.8 fL (80.0-100.0); MEAN PLATELET VOLUME 11.6 fL (7.4-10.4); MONOCYTES 11.4 % (2-11); NEUTROPHILS 53.2 % (40-80); PLATELET COUNT 325 10x3/uL (130-400); RBC 3.08 10x6/uL (4.20-6.10); RDW 13.1 % (11.5-14.5); WBC 10.3 10x3/uL (4.8-10.8)
[2017-01-27 05:10] VITALS: BP 173/78
[2017-01-27 05:21] LABS: ALBUMIN 2.3 g/dL (3.4-5.0); ANION GAP 12.4 mmol/L (8-16); BILIRUBIN - TOTAL 0.2 mg/dL (0.2-1.3); CALCIUM 8.4 mg/dL (8.5-10.1); CARBON DIOXIDE 27.3 mmol/L (21.0-32.0); CREATININE - SERUM 1.3 mg/dL (0.6-1.3); POTASSIUM - SERUM 3.7 mmol/L (3.5-5.1); PROTEIN - SERUM 5.5 g/dL (6.4-8.2)
[2017-01-27 07:55] VITALS: BP 181/73
--- NOTE | 2017-01-27 09:59 | NUR ---
OT NOTE: PT VERY ALERT THIS AM; DID NOT EAT MUCH BREAKFAST, HOWEVER, WAS GOING TO GET HIM SOMETHING FROM [employer]. PERFORMED EDGE OF BED SITTING IWTH MIN ASSIST ONCE HE WAS IN UPRIGHT POSITON; MOD ASSIST WITH BED MOB; MAX ASSIST WITH TRANSFER TO CHAIR; A/AROM EXS WITH L UE; EDUCATION ON SAFETY WITH USE OF IMMOBILIZER
--- NOTE | 2017-01-27 11:56 | NUR ---
PATIENT IN BED WITH IV INTACT. NO COMPLAINTS. AT BEDSIDE. BSCDS ON AND WORKING. CALL LIGHT WITHIN REACH.
[2017-01-27 12:00] VITALS: BP 153/61
[2017-01-27] MEDS ORDERED: BACTRIM DS TABL1 TAB PO (14:59)
--- NOTE | 2017-01-27 15:11 | NUR ---
CM REASSESSMENT NOTE: PATIENT IS DISCHARGING HOME TODAY. SIGNED IMM. PATIENT CURRENT WITH [facility] - NOTIFIED. PATIENTS SON IS COMING AROUND 5PM TO DRIVE PATIENT HOME.
[2017-01-27 15:53] VITALS: BP 158/70
--- NOTE | 2017-01-27 17:09 | NUR ---
PATIENT IN BED WAITING FOR DC. CALLED [facility] FOR PERMISSION TO LEAVE IN CATHETER AND FOR PAIN MEDS AT HOME. OK TO LEAVE CATH IN FOR HOME. CALL DR. DA SILVA FOR PAIN MEDS. PAGED DR. DA SILVA.
--- NOTE | 2017-01-27 17:12 | NUR ---
DR. DA SILVA STATED NO STRONGER PAIN MEDS THAN THE ULTRAM PATIENT HAS. CALLED [facility] REQUESTED. PATIENT IN BED WAITING FOR ORDERS. NO COMPLAINTS AT THIS TIME. IV INTACT. CALL LIGHT WITHIN REACH.
--- NOTE | 2017-01-27 17:36 | NUR ---
NO NEW PAIN MEDS ORDERED AT THIS TIME. EXPLAINED TO FAMILY AND THAT VERBALIZED UNDERSTANDING. ULTRAM AND ABX CALLED INTO PHARMACY EARLIER. PATIENT IV REMOVED WITH CATH TIP INTACT. PEREZ TO STAY IN AND GO HOME FOR BLADDER TRAINING. AWAITING WC FOR DC. CALL LIGHT WITHIN REACH. FAMILY AT BEDSIDE.
--- NOTE | 2017-01-27 17:41 | NUR ---
OT NOTE: PT COMPLETED SIMPLE ADL WITH SET UP. THANK YOU, GEETHA PEREZ/Crystal
== END 2017-01-27 17:44 | disposition home health service (06) | DRG 389 ==
LOC: D.ER 12:35 → D.MS 17:05 → OBSVTIME 17:05 → D.MS 01-23 19:37
PROVIDERS: Emergency Medicine; Family Medicine; ADMIT Family Medicine
PROC: 0T9B70Z Drainage of Bladder with Drainage Device, Via Natural or Artificial Opening (ICD-10-PCS; principal; 2017-01-22)
DX: K56.7 Ileus, unspecified (principal); I13.0 Hypertensive heart and chronic kidney disease with heart failure and stage 1 through stage 4 chronic kidney disease, or unspecified chronic kidney disease; S82.142A Displaced bicondylar fracture of left tibia, initial encounter for closed fracture; E86.0 Dehydration; I48.91 Unspecified atrial fibrillation; R41.0 Disorientation, unspecified; R10.9 Unspecified abdominal pain; D64.9 Anemia, unspecified; E11.22 Type 2 diabetes mellitus with diabetic chronic kidney disease; N18.9 Chronic kidney disease, unspecified; I50.9 Heart failure, unspecified; Z79.4 Long term (current) use of insulin; I71.4 Abdominal aortic aneurysm, without rupture; Z86.73 Personal history of transient ischemic attack (TIA), and cerebral infarction without residual deficits; W19.XXXA Unspecified fall, initial encounter

== ENCOUNTER 2017-02-04 15:03 | Inpatient (IN) | payer MEDICARE ==
[~2017-02-04] VITALS: Ht 170.2 cm; Wt 70.5 kg
[~2017-02-04 15:03] MED LIST changes: +ACETAMINOPHEN500 M1 PO; +AUGMENTIN 875-11 TAB PO; +BACTRIM DS TABL1 TAB PO; +GABAPENTIN100 MG PO; +ISOSORBIDE DINI30 MG PO; +LINZESS290 MCG PO; +MEGACE 20 MG TA20 MG PO; +REMERON30 MG PO
[2017-02-04 16:34] LABS: APPEARANCE HAZY (CLEAR); COLOR YELLOW (YELLOW); NITRITE NEGATIVE (NEGATIVE); PROTEIN 1+ mg/dL (NEGATIVE)
[2017-02-04 16:35] LABS: BACTERIA FEW /hpf (NONE SEEN); BILIRUBIN NEGATIVE (NEGATIVE); EPITHELIAL CELLS 0-5 /hpf (0-5); GLUCOSE NEGATIVE (NEGATIVE); KETONE NEGATIVE (NEGATIVE); LEUKOCYTE ESTERASE TRACE (NEGATIVE); MUCUS <1+ /lpf (NONE SEEN); RED CELLS - URINE 0-5 /hpf (0-5); TALC POWDER CRYSTALS OCC /hpf (NONE SEEN); UROBILINOGEN NORMAL (NORMAL); WHITE CELLS - URINE 0-5 /hpf (0-5)
[2017-02-04 17:27] LABS: BASOPHILS 0.3 % (0-2); EOSINOPHILS 1.1 % (0-7); HEMATOCRIT 32.6 % (42.0-54.0); HEMOGLOBIN 10.5 g/dL (13.5-17.5); IMMATURE GRANULOCYTES 0.3 % (0-5); LYMPHOCYTES 12.5 % (15-50); MCH 30.5 pg (26.0-34.0); MCHC 32.2 g/dL (31.0-37.0); MCV 94.8 fL (80.0-100.0); MEAN PLATELET VOLUME 11.7 fL (7.4-10.4); MONOCYTES 6.7 % (2-11); NEUTROPHILS 79.1 % (40-80); PLATELET COUNT 377 10x3/uL (130-400); RBC 3.44 10x6/uL (4.20-6.10); RDW 13.5 % (11.5-14.5); WBC 12.2 10x3/uL (4.8-10.8)
[2017-02-04 18:05] LABS: ANION GAP 8.8 mmol/L (8-16); BILIRUBIN - TOTAL 0.19 mg/dL (0.2-1.3); CALCIUM 9.1 mg/dL (8.5-10.1); CARBON DIOXIDE 22.3 mmol/L (21.0-32.0); CREATININE - SERUM 2.1 mg/dL (0.6-1.3); POTASSIUM - SERUM 4.1 mmol/L (3.5-5.1); PROTEIN - SERUM 7.4 g/dL (6.4-8.2)
[2017-02-04 18:17] LABS: TROPONIN-I 0.017 ng/mL (0.000-0.060)
[2017-02-04 20:00] VITALS: BP 166/64
--- NOTE | 2017-02-04 21:13 | NUR ---
RECIEVED PATIENT VIA STRETCHER WITH TECH FROM ER AND SPOUSE. PATIENT IS AWAKE AND ALERT. PATIENT WAS TRANSFERED FROM THE STRETCHER TO THE BED WITH ASSIST FROM 2 STAFF MEMBERS. PATIENT HAS A KNEE IMMOBILIZER ON. REMOVED KNEE IMMOBILIZER. FINANCIAL MANAGEMENT CONSULTANT ASSISTED PATIENT GETTING UNDRESSED AND PUTTING ON A GOWN. BROUGHT PATIENT'S A BLANKET. SHE DENIES FURTHER NEEDS.
[2017-02-04 22:17] VITALS: BMI 24.1
[2017-02-04] MEDS ORDERED: NEURONTIN 300300 MG PO (22:26)
[2017-02-04] MEDS ORDERED: ZESTRIL40 MG PO (22:29)
[2017-02-04] MEDS ORDERED: ZESTRIL20 MG PO (22:29)
[2017-02-04] MEDS ORDERED: ALDACTONE25 MG PO (22:30)
--- NOTE | 2017-02-04 22:30 | NUR ---
RESTING QUIETLY WITH EYES CLOSED. NO SIGNS OF DISTRESS NOTED. BED IN LOWEST POSITION, CALL LIGHT IN REACH. BED RAILS UP X'S 2.
[2017-02-04] MEDS ORDERED: TYLENOL W/CODEI1 TAB PO (22:35)
[2017-02-05] VITALS: BP 137/69
[2017-02-05 04:00] VITALS: BP 174/77
--- NOTE | 2017-02-05 05:00 | NUR ---
PATIENT CAME WITH A PEREZ CATHETER. REMOVED. CLEANED PENIS. INSERTED A NEW PEREZ CATHETER 16FR USING STERILE TECHNIQUE.
--- NOTE | 2017-02-05 05:16 | NUR ---
CALLED JORDYN THE CANOPY INSPECTOR, NOTIFIED HER OF THE ORDER FOR CLONIDINE, ASKED HER IF SHE CAN COME PULL IT, SHE SAID YES.
[2017-02-05 05:17] VITALS: BP 220/92
--- NOTE | 2017-02-05 07:00 | NUR ---
PATIENT PULLED OUT IV WITH CATH INTACT
--- NOTE | 2017-02-05 07:25 | NUR ---
LYING IN BED WITHOUT DISTRESS.NURSE RESITING IV.CALL LIGHT IN REACH
--- NOTE | 2017-02-05 07:33 | NUR ---
RESITED IV TO RIGHT FOREARM 20G X'S 1 ATTEMPT. PATIENT FACIAL GRIMMACING, VERBALIZED BACK PAIN. GAVE HIM A NORCO.
[2017-02-05 08:54] VITALS: BP 161/58
[2017-02-05 10:19] LABS: BASOPHILS 0.1 % (0-2); EOSINOPHILS 4.6 % (0-7); HEMATOCRIT 32.2 % (42.0-54.0); HEMOGLOBIN 10.3 g/dL (13.5-17.5); IMMATURE GRANULOCYTES 0.2 % (0-5); LYMPHOCYTES 27.3 % (15-50); MCH 30.8 pg (26.0-34.0); MCV 96.4 fL (80.0-100.0); MEAN PLATELET VOLUME 10.6 fL (7.4-10.4); MONOCYTES 7.6 % (2-11); NEUTROPHILS 60.2 % (40-80); PLATELET COUNT 431 10x3/uL (130-400); RBC 3.34 10x6/uL (4.20-6.10); RDW 13.5 % (11.5-14.5); WBC 10.3 10x3/uL (4.8-10.8)
[2017-02-05 10:42] LABS: ALBUMIN 2.8 g/dL (3.4-5.0); ANION GAP 12.7 mmol/L (8-16); BILIRUBIN - TOTAL 0.2 mg/dL (0.2-1.3); CALCIUM 9.3 mg/dL (8.5-10.1); CARBON DIOXIDE 25.7 mmol/L (21.0-32.0); CREATININE - SERUM 1.8 mg/dL (0.6-1.3); POTASSIUM - SERUM 4.4 mmol/L (3.5-5.1); PROTEIN - SERUM 6.8 g/dL (6.4-8.2)
[2017-02-05 12:11] VITALS: Ht 170.2 cm; Wt 70.5 kg
[2017-02-05 13:03] VITALS: BP 128/77
[2017-02-05 20:00] VITALS: BP 184/71
[2017-02-06] VITALS (7 sets, daily range): BP systolic 129–167; BP diastolic 54–78
--- NOTE | 2017-02-06 09:30 | NUR ---
ASSESSMENT COMPLETE. IV TO R FA PATENT. NS INFUSING AT 50 CC/HR VIA PUMP. DROWSY BUT AWAKENS TO VERBAL STIMULI. GENERAL SERVICE TECHNICIAN SHOWING PACED 60 PER TECH. PEREZ PATENT DRAINING YELLOW URINE. FAMILY AT BEDSIDE. DENIES ANY NEEDS AT THIS TIME.
--- NOTE | 2017-02-06 12:18 | NUR ---
EEG BEING PERFORMED.
--- NOTE | 2017-02-06 21:45 | NUR ---
PEREZ CARE COMPLETED USING PEREZ CARE WIPES.
--- NOTE | 2017-02-06 23:00 | NUR ---
PATIENT JUST FINISHED EATING A SONIC DINNER HIS SON BROUGHT HIM. TURNED PATIENT TO HIS RIGHT SIDE AND PUT A PILLOW UNDER HIS LEFT SIDE. BILATERAL LEGS ELEVATED ON A PILLOW. SCDS TO BILATERAL LEGS. PATIENT DENIES PAIN AND NEEDS. BED IN LOWEST POSITION, CALL LIGHT IN REACH. BED RAILS UP X'S 2. BED ALARM ON. SON IN RECLINER AT BEDSIDE.
[2017-02-07 04:02] VITALS: BP 115/67
[2017-02-07 05:21] LABS: BASOPHILS 0.4 % (0-2); EOSINOPHILS 4.1 % (0-7); HEMATOCRIT 32.6 % (42.0-54.0); HEMOGLOBIN 10.5 g/dL (13.5-17.5); IMMATURE GRANULOCYTES 0.3 % (0-5); LYMPHOCYTES 41.3 % (15-50); MCH 30.6 pg (26.0-34.0); MCHC 32.2 g/dL (31.0-37.0); MEAN PLATELET VOLUME 11.1 fL (7.4-10.4); MONOCYTES 9.3 % (2-11); NEUTROPHILS 44.6 % (40-80); PLATELET COUNT 426 10x3/uL (130-400); RBC 3.43 10x6/uL (4.20-6.10); RDW 13.2 % (11.5-14.5); WBC 9.5 10x3/uL (4.8-10.8)
--- NOTE | 2017-02-07 05:25 | NUR ---
PATIENT IS LAYING ON HIS LEFT SIDE. RESTING QUIETLY WITH EYES CLOSED. PATIENT PULLED THE COVER OVER HIS HEAD. IS IN RECLINER. SHE DENIES NEEDS AT THIS TIME. BED IN LOWEST POSITION, CALL LIGHT IN REACH. BED RIALS UP X'S 2.
[2017-02-07 05:47] LABS: ALBUMIN 2.8 g/dL (3.4-5.0); ANION GAP 14.5 mmol/L (8-16); BILIRUBIN - TOTAL 0.3 mg/dL (0.2-1.3); CALCIUM 9.1 mg/dL (8.5-10.1); CARBON DIOXIDE 24.8 mmol/L (21.0-32.0); CREATININE - SERUM 1.9 mg/dL (0.6-1.3); POTASSIUM - SERUM 4.3 mmol/L (3.5-5.1); PROTEIN - SERUM 6.8 g/dL (6.4-8.2)
--- NOTE | 2017-02-07 07:45 | NUR ---
ASSESSMENT COMPLETE. SL TO R FA. DIRECTOR DRUG SHOWING PACED 60 PER TECH. PEREZ PATENT DRAINING YELLOW URINE. FAMILY AT BEDSIDE.
[2017-02-07 08:32] VITALS: BP 182/62
[2017-02-07 16:11] LABS: APPEARANCE CLEAR (CLEAR); BILIRUBIN NEGATIVE (NEGATIVE); COLOR YELLOW (YELLOW); GLUCOSE NEGATIVE (NEGATIVE); KETONE NEGATIVE (NEGATIVE); LEUKOCYTE ESTERASE NEGATIVE (NEGATIVE); NITRITE NEGATIVE (NEGATIVE); PROTEIN 2+ mg/dL (NEGATIVE); UROBILINOGEN NORMAL (NORMAL)
[2017-02-07 16:21] LABS: AMORPHOUS SEDIMENT <1+ /lpf (NONE SEEN); BACTERIA FEW /hpf (NONE SEEN); EPITHELIAL CELLS OCC /hpf (0-5); GRANULAR CAST 0-5 /lpf (NONE SEEN); HYALINE CAST OCC /lpf (NONE SEEN); MUCUS <1+ /lpf (NONE SEEN); RED CELLS - URINE OCC /hpf (0-5); WHITE CELLS - URINE OCC /hpf (0-5)
[2017-02-07 16:42] VITALS: BP 130/72
--- NOTE | 2017-02-07 18:15 | NUR ---
NOTIFIED BY THAT PATIENT HAS PAPERWORK FILLED OUT TO BE A DNR. REPORTS THAT SHE IS UNABLE TO FIND PAPERWORK BUT WANTS PATIENT'S CODE STATUS TO BE DNR PER HIS REQUEST. DR STOVALL NOTIFIED. ORDER RECIEVED FOR DNR.
[2017-02-07 19:00] VITALS: BP 173/70
--- NOTE | 2017-02-07 20:00 | NUR ---
RESTING QUIETLY WITH EYES CLOSED. NO SIGNS OF DISTRESS NOTED. AT BEDSIDE SITTING IN RECLINER. SHE DENIES NEEDS AT THIS TIME. WOKE PATIENT UP, HE AROUSED EASILY TO VOICE. OFFERED HIM SOME ICE WATER, HE TOOK 1 SIP AND SAID HE DOES NOT WANT ANYMORE. PATIENT DENIES NEEDS AT THIS TIME. BED IN LOWEST POSITION, CALL LIGHT IN REACH. BED RAILS UP X'S 2.
--- NOTE | 2017-02-07 22:05 | NUR ---
PEREZ CARE COMPLETED USING PEREZ CARE WIPES. DRESSING TO SKIN TEAR TO LEFT ELBOW, REMOVED DRESSING. THERE ARE 2 SMALL SKIN TEARS ALMOST HEALED. VASOLINE GAUZE WITH A NON-ADHERENT OVER IT WRAPPED WITH KERLIX, REMOVED THE KERLIX AND NON-ADHERENT DRESSING AND REPLACED WITH A NEW NON-ADHERENT DRESSING AND WRAPPED WITH KERLIX. DID NOT CHANGE THE VASOLINE GAUZE. PATIENT TOLERATED WELL. PATIENT HAS MULTIPLE PLACES ON HIS LEFT ARM WHERE HE HAS HAD BLOOD DRAWS AND GAUZE WITH TAPE LEFT ON HIS ARM. USED ALCOHOL SWABS AND MOISTENED THE TAPE, THEN USED A WET TOWEL TO SOAK IT TO MAKE THE TAPE COME OFF EASIER. REMOVED ALL OF THE TAPE. SKIN REMAINED INTACT. TURNED PATIENT TO HIS LEFT SIDE, PUT A PILLOW BEHIND HIS RIGHT SIDE.
--- NOTE | 2017-02-07 22:30 | NUR ---
CHECKED FSBS, BECAUSE PATIENT IS A DIABETIC AND HAS NOT BEEN EATING MUCH. ENCOURAGED PATIENT TO EAT A BED TIME SNACK. AFTER MUCH ENCOURAGING FROM MYSELF AND HIS , HE FINALLY AGREED TO EAT 2 GIULIANA CRACKERS WITH PEANUT BUTTER IN BETWEEN WITH MILK. BROUGHT THOSE TO HIM, MADE THE GIULIANA CRACKER SANDWHICH AND HANDED IT TO HIM, OPENED HIS MILK. SAT HIM UP ALL THE WAY. HIS IS NOW ASSISTING HIM.
[2017-02-08] VITALS: BP 147/53
[2017-02-08 06:28] LABS: ANION GAP 16.4 mmol/L (8-16); CALCIUM 9.6 mg/dL (8.5-10.1); CREATININE - SERUM 1.9 mg/dL (0.6-1.3); POTASSIUM - SERUM 4.4 mmol/L (3.5-5.1)
--- NOTE | 2017-02-08 07:15 | NUR ---
PATIENT RECEIVED IN LOW BLAND POSITION RESTING QUIETLY WITH EYES CLOSED. RESPIRATIONS EVEN AND UNLABORED. SIDE RAILS UP X2. BED IN LOW POSITION. CALL LIGHT IN REACH. FAMILY PRESENT.
--- NOTE | 2017-02-08 08:35 | NUR ---
PATIENT IN BED RESTING QUIETLY. NO SIGNS OF DISTRESS NOTED. REPOSITIONED IN BED. WELL TOLERATED. REFUSES TO TAKE SCHEDULED MEDICATION. FAMILY AT BEDSIDE. SIDE RAILS UP X2. BED IN LOW POSITION. CALL LIGHT IN REACH.
[2017-02-08 08:38] VITALS: BP 120/78
[2017-02-08 09:04] LABS: BASOPHILS 0.3 % (0-2); EOSINOPHILS 4.3 % (0-7); HEMATOCRIT 32.8 % (42.0-54.0); HEMOGLOBIN 10.7 g/dL (13.5-17.5); IMMATURE GRANULOCYTES 0.3 % (0-5); LYMPHOCYTES 30.4 % (15-50); MCH 30.9 pg (26.0-34.0); MCHC 32.6 g/dL (31.0-37.0); MCV 94.8 fL (80.0-100.0); MEAN PLATELET VOLUME 11.2 fL (7.4-10.4); MONOCYTES 8.7 % (2-11); PLATELET COUNT 404 10x3/uL (130-400); RBC 3.46 10x6/uL (4.20-6.10); RDW 13.3 % (11.5-14.5)
--- NOTE | 2017-02-08 10:00 | NUR ---
PATIENT INCONTINENT OF BM. PATIENT CLEANED AND PARTIAL LINEN CHANGE COMPLETE. REPOSITIONED IN BED. PILLOW PLACED BENEATH LEFT SIDE. HEELS BRIDGED. FAMILY AT BEDSIDE. SIDE RAILS UP X2. BED IN LOW POSITION. CALL LIGHT IN REACH.
--- NOTE | 2017-02-08 10:51 | NUR ---
Patient Name: LEXI ROB Admission Status: ER Accout number: [id number] Admission Date: 02-05-2017 : 1935 Admission Diagnosis: Attending: ZENY Current LOS: 3 Anticipated DC Date: Planned Disposition: Primary Insurance: [employer] CHOICE PPO MCR ADVANT Discharge Planning Comments: CM met with patient and daughter in law (Lou) to assess discharge planning. The patient was asleep the whole time. Lou states that he was independent at home prior to him having a seizure. He has home o2 from [employer], Nebulizer, glucometer, walker, wheelchair, transfer bench, shower chair. Lou also states that they have discussed Hospice if he is not getting any better. He is current with [facility] with nursing, OT & PT. CM will continue to follow and assist as needed. PCP: Hayde/Quinn Villegas [facility] [place] [address] () [phone] Lou (daughter in law) [phone] Parts Back Counter Man: Reina Rudolph * Is the patient Alert and Oriented? Yes 0 * PCP HAYDE/QUINN CALLS 0 * [facility] * Preadmission Environment Home with Family 0 * ADLs Independent 0 * Equipment Bedside Commode Cane Elevated [place] Seat Rolling Walker Shower Chair Walker Wheelchair 0 * List name and contact numbers for known caregivers / representatives who currently or will assist patient after discharge: LOU (DAUGHTER IN LAW) [phone] 0 * Community resources currently utilized Home Health 0 * Please name any agencies selected above. [facility] WITH PT AND OT AND NURSING 0 * Additional services required to return to the preadmission environment? Yes 0 * Can the patient safely return to the preadmission environment? Yes 0 * Has this patient been hospitalized within the prior 30 days at any hospital? Yes 0 Grand Total: 0
--- NOTE | 2017-02-08 12:42 | NUR ---
NUTRITION MONITORING & EVAL CHART REVIEWED, PT VISIT. PT AGREES TO CONY BOOST WITH MEALS. WILL PROVIDE. DENIES CONSTIPATION OR DIFFICULTY CHEWING/SWALLOWING. RD FOLLOWING
--- NOTE | 2017-02-08 12:45 | NUR ---
ALERT IN HIGH BLAND POSITION WITH FAMILY PRESENT. SCHEDULED MEDICATION ADMINISERED. WELL TOLERATED. SIDE RAILS UP X2. BED IN LOW POSITION. CALL LIGHT IN REACH.
[2017-02-08 13:30] VITALS: BP 190/70
--- NOTE | 2017-02-08 13:41 | NUR ---
RECEIVED AN ORDER ABOUT HOSPICE. CALLED [facility] AND REFERRAL SENT AND THEY STATED THEY WOULD BE HERE AT 2 TO MEET WITH THE FAMILY
[2017-02-08] MEDS ORDERED: DEPAKOTE250 MG PO (16:10)
--- NOTE | 2017-02-08 16:17 | NUR ---
PATIENT BEING DISCHARGED TODAY TO HOME HOPSICE WITH [facility]. PATIENT WILL BE TRANSPORTED VIA EMS. CM WILL CONTINUE TO FOLLOW AND ASSIST
--- NOTE | 2017-02-08 16:30 | NUR ---
IV TO RIGHT WRIST D/C WITH CATH TIP INTACT. SITE COVERED WITH GAUZE AND BANDAID.
[2017-02-08 17:05] VITALS: BP 170/67
--- NOTE | 2017-02-08 18:00 | EEG ---
PATIENT:LEXI ROB DATE OF SERVICE: 02/05/17 MEDICAL RECORD: [id number] DATE OF : 37 LOCATION:D.221 D.MS ADMISSION DATE: 02/05/17 REFERRING PHYSICIAN: INTERPRETING PHYSICIAN: SCOTTIE GROSS MD DATE OF SERVICE: 02/07/2017 Referred by myself as an inpatient, currently in room 2214. ELECTROENCEPHALOGRAM NUMBER: [id number]. DATE OF EXAMINATION: 02/06/2017 at 12:10 p.m. TECHNICAL DATA: This electroencephalographic recording consists of approximately 20 minutes of data collection utilizing the international 10/20 system of electrode placement and both referential and non-referential montages. Sixteen channels of electrocerebral recording are accompanied by a 17th channel dedicated to the electrocardiographic rhythm and 2 channels of electromyographic recording. Recording is performed in the awake and drowsy states utilizing activation by photic stimulation. ELECTROENCEPHALOGRAPHIC DATA: The awake state comprises only approximately 20% of the recorded electrocerebral activity. Electromyographic artifact is more prominent and rapid eye movements are seen. The posterior dominant background is not well-developed, but consists of a symmetric semi-arrhythmic waxing and waning 6-7 Hz theta activity, which is suppressed by eye opening. Also seen is a generalized irregular and symmetric 2-3 Hz delta slowing, which occurs for periods of 1-2 seconds approximately once every 1-2 pages. The drowsy state comprises the remaining portion of the recorded electrocerebral activity. Electromyographic artifact is diminished and rapid eye movements are not seen. Delta slowing is more prominent in stage I sleep. No focal slowing is identified. No epileptiform discharges are seen. Photic stimulation induces no abnormal change in the recorded electrocerebral activity. INTERPRETATION: 1. Intermittent slow, generalized (awake and drowsy). 2. Background slow. This electroencephalographic recording is indicative of a mild to moderate diffuse encephalopathy. TRANSINT:[id number] Voice Confirmation ID: [id number] DOCUMENT ID: [id number] ELECTROENCEPHALOGRAM REPORT [id number] LEXI ROB SCOTTIE GROSS MD at 1800 CC: [id number] DICTATION DATE: 02/07/17 0608 [address] CH[address] TERRAZZO FINISHER: 02/07/17 1919 ADM IN [place] [id number] [place] [address]
--- NOTE | 2017-02-08 19:35 | NUR ---
ASSISTED PARAMEDICS IN TRANS PT TO STRETCHER. NO VISIBLE SIGNS OF DISTRESS NOTED. PT D/C WITH [facility] WITH AT BEDSIDE.
== END 2017-02-08 19:35 | disposition home health service (06) | DRG 640 ==
LOC: D.ER 15:03 → OBSVTIME 18:42 → D.MS 18:42
PROVIDERS: Emergency Medicine; Family Medicine; ADMIT Family Medicine
DX: E87.1 Hypo-osmolality and hyponatremia (principal); G93.49 Other encephalopathy; I13.0 Hypertensive heart and chronic kidney disease with heart failure and stage 1 through stage 4 chronic kidney disease, or unspecified chronic kidney disease; I95.9 Hypotension, unspecified; R55 Syncope and collapse; J44.9 Chronic obstructive pulmonary disease, unspecified; R56.9 Unspecified convulsions; I25.10 Atherosclerotic heart disease of native coronary artery without angina pectoris; E11.22 Type 2 diabetes mellitus with diabetic chronic kidney disease; N18.9 Chronic kidney disease, unspecified; I50.9 Heart failure, unspecified; D50.9 Iron deficiency anemia, unspecified; Z95.0 Presence of cardiac pacemaker